=== PATIENT | female | born 1950 | race Caucasian/White ===

== ENCOUNTER → 2017-06-22 | Outpatient (CLI) | payer OTHER ==
[~2017-06-22] MED LIST: ACCL20 PO; ALBUAER19 INH; CALCTAB7 PO; IBAN150T PO; NAPR1TAB9 PO; OXGN; PANT40TA PO; PRDUNK PO; QVRINH80 INH; SERT100T PO; SULF800T23 PO; SYMIN160 INH; TIOTCAP INH; TRAM-10 PO; TRAZ50TA35 PO
--- NOTE | 2017-06-22 10:04 | DIAGNOSTIC IMAGING REPORT ---
(CHEST) THORAX WITHOUT CLINICAL HISTORY: 66 years-old Female presenting with THORACIC AORTIC ANEURYSM. TECHNIQUE: Multidetector CT imaging of the chest was performed without the use of intravenous contrast. IV contrast: None. A dose lowering technique was used consistent with the principles of ALARA (as low as reasonably achievable). COMPARISON: 06/18/2015. CT DOSE (mGy.cm): The estimated cumulative dose is 305.93 mGycm. FINDINGS: Digital [employer] topogram: Unremarkable. On soft tissue windows, normal thyroid and thoracic inlet. No axillary, supraclavicular, or mediastinal lymphadenopathy. Evaluation of the lali limited without intravenous contrast. Atherosclerosis of the aorta. The ascending aorta measures up to 4 cm in transverse dimension, previously 3.9 cm. No evidence of an intramural hematoma or significant irregularity of the external contour. The descending thoracic aorta is normal in caliber. Normal heart size. Coronary artery calcification. No pericardial or pleural effusion. Upper abdomen normal. On lung windows, Mosaic attenuation could suggest small airways disease. Biapical scarring greater on the right. Peripheral reticulonodular opacities greater in the right lung, slightly increased from prior exam. Mild bronchiectasis diffusely. No significant bronchial wall thickening. Subcentimeter cystic nodule at the right upper lobe (series 4 image 66), unchanged. On bone windows, degenerative changes of the spine. IMPRESSION: 1. No significant change in severity of the ascending aortic ectasia, which measures 4 cm in transverse dimension. 2. Mosaic attenuation with slightly increased peripheral reticulonodular opacities and subtle evidence of bronchiectasis. These findings are nonspecific and could be seen in the setting of smoking related lung injury, postinfectious/postinflammatory change, chronic aspiration, or less likely diffuse idiopathic pulmonary neuroendocrine cell hyperplasia. Electronically signed by: Pradeep Alvarez M.D. 06/22/2017 10:02 AM Dictated Date/Time: 06/22/2017 9:52 AM
== END | disposition home or self-care (01) ==
LOC: C.CTS 09:30
PROVIDERS: ATTEND Surgery Vascular Surgery
DX: I71.2 Thoracic aortic aneurysm, without rupture (principal)

== ENCOUNTER → 2017-09-15 | Outpatient (CLI) | payer OTHER ==
--- NOTE | 2017-09-15 11:54 | DIAGNOSTIC IMAGING REPORT ---
CHEST 2 VIEWS ROUTINE CLINICAL HISTORY: Shortness of breath. COMPARISON STUDY: Chest CT June 22, 2017. FINDINGS: There is no pneumothorax or pleural effusion. Reticulonodular interstitial thickening is likely chronic. There is right apical scarring. No pneumothorax or pleural effusion is noted. Cardiomediastinal silhouette is stable. There is no evidence for pulmonary edema. Exaggerated arthrosis of the upper thoracic spine as shown on lateral projection. The appearance of the chest is unchanged since exam of June 22, 2017. IMPRESSION: No acute cardiopulmonary findings. No significant change in appearance of the chest. Electronically signed by: Bridger Farfan M.D. 09/15/2017 11:53 AM Dictated Date/Time: 09/15/2017 11:43 AM
== END | disposition home or self-care (01) ==
LOC: C.RAD1850 11:20
PROVIDERS: ATTEND Physician Assistant Medical
DX: R06.02 Shortness of breath (principal)

== ENCOUNTER → 2017-11-19 | Outpatient (CLI) | payer OTHER ==
[2017-11-19 18:01] LABS: ALBUMIN 3.3 gm/dl (3.4-5.0); ALT/SGPT 20 U/L (12-78); BLOOD UREA NITROGEN 9 mg/dl (7-18); CALCIUM 8.9 mg/dl (8.5-10.1); CREATININE 0.61 mg/dl (0.60-1.20); GLUCOSE 176 mg/dl (70-99); POTASSIUM 3.9 mmol/L (3.5-5.1); SODIUM 134 mmol/L (136-145)
[2017-11-19 18:07] LABS: HEMATOCRIT 32.6 % (37-47); HEMOGLOBIN 8.6 g/dL (12.0-16.0); MEAN CELL VOLUME 89.8 fL (80-100); MEAN CORPUSCULAR HEMOGLOBIN 23.7 pg (25-34); MEAN CORPUSCULAR HGB CONC 26.4 g/dl (32-36); MEAN PLATELET VOLUME 10.8 fL (7.4-10.4); PLATELET COUNT 325 K/uL (130-400); RED CELL DISTRIBUTION WIDTH CV 18.9 % (11.5-14.5); RED CELL DISTRIBUTION WIDTH SD 62.7 fL (36.4-46.3); WHITE BLOOD COUNT 10.85 K/uL (4.8-10.8)
[2017-11-19 18:27] LABS: BASO % 0.1 %; BASO ABS # 0.01 K/uL (0-0.2); IG# 0.06 K/uL (0.00-0.02); LYMPH ABS # 0.33 K/uL (1.2-3.4); MONO % 2.8 %; NEUT % 93.5 %; NEUT ABS # 10.15 K/uL (1.4-6.5)
[2017-11-19 20:11] LABS: CARBON DIOXIDE 40 mmol/L (21-32)
[2017-11-19 20:12] LABS: ALKALINE PHOSPHATASE 98 U/L (45-117); AST/SGOT 20 U/L (15-37); TOTAL PROTEIN 6.8 gm/dl (6.4-8.2)
== END | disposition home or self-care (01) ==
LOC: C.LAB1850 15:44
PROVIDERS: ATTEND Internal Medicine Pulmonary Disease
DX: J44.9 Chronic obstructive pulmonary disease, unspecified (principal); R63.4 Abnormal weight loss

== ENCOUNTER → 2017-11-24 | Outpatient (CLI) | payer OTHER ==
[~2017-11-24] MED LIST changes: +BECL80AE7 INH; +FRRS300 PO; +LEVO-366 PO; +PRED10TA PO; +PRED20TA PO; +SERT-234 PO; +SPRIN/30 INH; +VNTHFA/IN INH; +ZAFI1TAB10 PO
[2017-11-25 07:17] LABS: HEMOGLOBIN A1C 5.7 % (4.5-5.6)
== END | disposition home or self-care (01) ==
LOC: C.LAB1850 15:15
PROVIDERS: ATTEND Physician Assistant Medical
DX: R79.9 Abnormal finding of blood chemistry, unspecified (principal)

== ENCOUNTER → 2017-11-26 | Outpatient (CLI) | payer OTHER ==
[2017-12-03 14:21] LABS: FECAL OCCULT BLOOD #1 NEGATIVE (NEGATIVE); FECAL OCCULT BLOOD #2 NEGATIVE (NEGATIVE); FECAL OCCULT BLOOD #3 NEGATIVE (NEGATIVE)
== END | disposition home or self-care (01) ==
LOC: C.LABSPEC 13:40
PROVIDERS: ATTEND Nurse Practitioner
DX: R79.89 Other specified abnormal findings of blood chemistry (principal)

== ENCOUNTER → 2017-11-27 | Outpatient (CLI) | payer OTHER ==
[2017-11-27 18:21] LABS: HEMATOCRIT 32.6 % (37-47); HEMOGLOBIN 8.7 g/dL (12.0-16.0); MEAN CELL VOLUME 90.3 fL (80-100); MEAN CORPUSCULAR HEMOGLOBIN 24.1 pg (25-34); MEAN CORPUSCULAR HGB CONC 26.7 g/dl (32-36); MEAN PLATELET VOLUME 10.9 fL (7.4-10.4); NUCLEATED RED BLOOD CELL ABS 0.03 K/uL (0-0); PLATELET COUNT 314 K/uL (130-400); RED CELL DISTRIBUTION WIDTH CV 18.6 % (11.5-14.5); RED CELL DISTRIBUTION WIDTH SD 61.4 fL (36.4-46.3); WHITE BLOOD COUNT 11.28 K/uL (4.8-10.8)
== END | disposition home or self-care (01) ==
LOC: C.LABMFLN 15:47
PROVIDERS: ATTEND Physician Assistant Medical
DX: D64.9 Anemia, unspecified (principal)

== ENCOUNTER 2017-12-03 14:03 | Inpatient (IN) | payer OTHER ==
[~2017-12-03] VITALS: Ht 152.4 cm; Wt 54.8 kg
[~2017-12-03 14:03] MED LIST changes: -BECL80AE7 INH; -FRRS300 PO; -LEVO-366 PO; -PRED10TA PO; -PRED20TA PO; -SERT-234 PO; -SPRIN/30 INH; -VNTHFA/IN INH; -ZAFI1TAB10 PO
--- NOTE | 2017-12-03 14:15 | EMERGENCY ROOM VISIT NOTE ---
History Report prepared by May: Rose Roldan Under the Supervision of: Dr. Naveed Ruby M.D. First contact with patient: 14:11 Chief Complaint: WEAKNESS Stated Complaint: FATIGUE, LOW HEMOGLOBIN History of Present Illness The patient is a 67 year old female who presents to the Emergency Room with complaints of persistent weakness beginning a couple months ago. Her notes the patient is so weak she has trouble walking, and they saw her lab rep, Dr. Sarkar, who increased her chronic Prednisone dose (due to chronic pulmonary conditions). He reports her pulse ox drops precipitously with movement. The patient denies CP, coughing, pain with urination, or blood in urine or stools. She denies any recent travel, blood thinner use, or history of blood clots. Her notes the patient wears oxygen at all times. Source of History: patient Onset: a couple months ago Position: other (global) Quality: other (weakness) Timing: other (persistent) Associated Symptoms: No cough, No chest pain, No melena, No urinary symptoms Review of Systems See HPI for pertinent positives and negatives. A total of ten systems were reviewed and were otherwise negative. Past Medical & Surgical Medical Problems: (1) Chronic lung disease Chronic lung disease Family History No pertinent family history stated. Social History Smoking Status: Never Smoker Alcohol Use: none Drug Use: none Marital Status: Housing Status: lives with family Occupation Status: employed Current/Historical Medications Scheduled Beclomethasone Dip (Qvar), 2 PUFFS INH BID Budesonide/Formoterol Fumarate (Symbicort 160/4.5 Inhaler ), 2 PUFFS INH BID Home O2 Therapy (Oxygen), 3-4 LITERS NA CONTINOUS Ibandronate Sodium (Boniva), 150 MG PO MONTHLY Pantoprazole (Protonix), 40 MG PO DAILY Prednisone (Prednisone), 30 MG PO DAILY Sertraline (Zoloft), 100 MG PO DAILY Sulfa/Trimethoprim (Bactrim Ds 800MG/160MG), 1 TAB PO BID Tiotropium Tynan (Spiriva Handihaler), 1 CAP INH DAILY Trazodone Hcl (Trazodone), 75 MG PO DAILY Zafirlukast (Accolate), 20 MG PO BID Scheduled PRN Albuterol Hfa (Ventolin Hfa), 2 PUFFS INH QID PRN for SOB/Wheezing Tramadol (Ultram), 50 MG PO Q4H PRN for Pain Allergies Coded Allergies: No Known Allergies (Verified , 12/03/17) Physical Exam Vital Signs Date Time Temp Pulse Resp B/P (MAP) Pulse Ox O2 Delivery O2 Flow Rate FiO2 12/03/17 16:00 162/97 12/03/17 15:38 107 29 96 12/03/17 15:33 106 26 95 12/03/17 15:31 145/91 12/03/17 15:03 107 24 160/93 96 Nasal Cannula 4.0 12/03/17 15:03 102 30 96 12/03/17 14:58 100 25 95 12/03/17 14:53 110 96 12/03/17 14:48 108 25 12/03/17 14:43 108 25 96 12/03/17 14:39 108 12/03/17 14:36 138/95 12/03/17 14:26 97 Room Air 4.0 Nasal Cannula 12/03/17 14:26 97 Nasal Cannula 4.0 12/03/17 14:06 37.1 81 20 146/76 97 Nasal Cannula 4.0 Physical Exam Physical Exam GENERAL: She is oriented to person, place, and time. She appears well- developed and well-nourished. She does not appear distressed. HENT: Exam performed. Head: Normocephalic and atraumatic. Right Ear: External ear normal. No mastoid tenderness. Left Ear: External ear normal. No mastoid tenderness. Mouth/Throat: The oropharynx is clear and moist. No trismus in the jaw. No dental abscesses or uvula swelling. No oropharyngeal exudate or tonsillar abscesses. EYES: Conjunctivae and EOM are normal. Pupils are equal, round, and reactive to light. Right eye exhibits no discharge. Left eye exhibits no discharge. No scleral icterus. NECK: Normal range of motion. Neck supple. No JVD present. No spinous process tenderness present. No carotid bruit present. No rigidity. No tracheal deviation and normal range of motion present. No Brudzinski's sign and no Kernig 's sign noted. CV: Tachycardic rate, regular rhythm, normal heart sounds and intact distal pulses. There is no peripheral edema. Palpable radial pulses bue. PULM/CHEST: Diminished breath sounds bilaterally. No respiratory distress. No stridor. Expiratory wheezes bilaterally. She has no rales. Chest Wall: She exhibits no tenderness. ABD: The abdomen is soft. Bowel sounds are normal. She has no distension. No mass is present. There is no tenderness. There is no rebound, no guarding, no Turcios's sign and no tenderness at McBurney's point. Rovsig negative MUSC/SKEL: Normal range of motion. There is no peripheral edema, tenderness or deformity. LYMPH: No cervical adenopathy. NEURO: She is alert and oriented to person, place, and time. She has normal strength. No cranial nerve deficit or sensory deficit. Coordination and gait normal. GCS eye subscore is 4. GCS verbal subscore is 5. GCS motor subscore is 6. Cerebellar tests wnl. SKIN: Skin is warm and dry. She is not diaphoretic. PSYCH: She has a normal mood and affect. Behavior is normal. Judgment and thought content normal. Medical Decision & Procedures ER Provider Diagnostic Interpretation: Radiology results as stated below per my review and radiologist interpretation: (CHEST FOR PE) ANGIO WITH CT DOSE: 191.83 mGy.cm HISTORY: Chest pain dyspnea. Fatigue. TECHNIQUE: Multiaxial CT images of the chest were performed following the intravenous administration of contrast to evaluate the pulmonary arteries. Maximal intensity projection images were also obtained. A dose lowering technique was utilized adhering to the principles of ALARA. COMPARISON STUDY: None. FINDINGS: There is a normal caliber thoracic aorta with no evidence for dissection. There is no evidence for pulmonary embolus. No pleural effusions. No pneumothorax. The liver and spleen are unremarkable. No mediastinal or hilar lymphadenopathy. The central airways are patent. The lungs demonstrate a right middle lobe infiltrate with moderate generalized emphysematous and basilar interstitial change. IMPRESSION: No evidence for pulmonary embolus. Emphysematous change. Right lower middle lobe infiltrate. The above report was generated using voice recognition software. It may contain grammatical, syntax or spelling errors. Electronically signed by: Demar Bingham M.D. 12/03/2017 4:24 PM Dictated Date/Time: 12/03/2017 4:16 PM CHEST ONE VIEW PORTABLE CLINICAL HISTORY: 67 years-old Female presenting with CHEST PAIN. TECHNIQUE: Portable upright AP view of the chest was obtained. COMPARISON: 09/15/2017. FINDINGS: Atherosclerosis of the aortic arch. Cardiac silhouette enlarged. Lungs hyperinflated. Heterogeneous lung parenchyma. No new focal opacity. No large effusion or pneumothorax. Multiple left-sided rib fractures not all of which were present on the prior exam. Osteopenia. Degenerative changes of the spine. Upper abdomen normal. IMPRESSION: 1. Heterogeneity of lung parenchyma may reflect underlying chronic reticulonodular opacities. Consider CT chest for further evaluation. 2. Multiple left-sided rib fractures, not all of which were visible on the prior exam. Correlate with point tenderness to assess for acuity. Electronically signed by: Pradeep Alvarez M.D. 12/03/2017 2:29 PM Dictated Date/Time: 12/03/2017 2:26 PM Laboratory Results 12/03/17 14:37 Red Blood Count 3.71, Mean Corpuscular Volume 91.6, Mean Corpuscular Hemoglobin 24.3, Mean Corpuscular Hemoglobin Concent 26.5, Mean Platelet Volume 10.2, Neutrophils (%) (Auto) 95.5, Lymphocytes (%) (Auto) 1.4, Monocytes (%) (Auto) 2.5, Eosinophils (%) (Auto) 0.0, Basophils (%) (Auto) 0.1, Neutrophils # (Auto) 12.65, Lymphocytes # (Auto) 0.18, Monocytes # (Auto) 0.33, Eosinophils # (Auto) 0.00, Basophils # (Auto) 0.01 12/03/17 14:37 Test 12/03/17 14:37 12/03/17 15:28 White Blood Count 13.24 K/uL (4.8-10.8) Red Blood Count 3.71 M/uL (4.2-5.4) Hemoglobin 9.0 g/dL (12.0-16.0) Hematocrit 34.0 % (37-47) Mean Corpuscular Volume 91.6 fL (80-100) Mean Corpuscular Hemoglobin 24.3 pg (25-34) Mean Corpuscular Hemoglobin Concent 26.5 g/dl (32-36) Platelet Count 299 K/uL (130-400) Mean Platelet Volume 10.2 fL (7.4-10.4) Neutrophils (%) (Auto) 95.5 % Lymphocytes (%) (Auto) 1.4 % Monocytes (%) (Auto) 2.5 % Eosinophils (%) (Auto) 0.0 % Basophils (%) (Auto) 0.1 % Neutrophils # (Auto) 12.65 K/uL (1.4-6.5) Lymphocytes # (Auto) 0.18 K/uL (1.2-3.4) Monocytes # (Auto) 0.33 K/uL (0.11-0.59) Eosinophils # (Auto) 0.00 K/uL (0-0.5) Basophils # (Auto) 0.01 K/uL (0-0.2) RDW Standard Deviation 63.0 fL (36.4-46.3) RDW Coefficient of Variation 19.0 % (11.5-14.5) Immature Granulocyte % (Auto) 0.5 % Immature Granulocyte # (Auto) 0.07 K/uL (0.00-0.02) Anion Gap 3.0 mmol/L (3-11) Estimated GFR () 112.0 Estimated GFR (Non- 96.6 BUN/Creatinine Ratio 14.0 (10-20) Calcium Level 8.7 mg/dl (8.5-10.1) Troponin I < 0.015 ng/ml (0-0.045) Pro-B-Type Natriuretic Peptide 100 pg/ml (0-900) Venous Blood pH 7.36 (7.36-7.41) Venous Blood Partial Pressure CO2 87 mmHg (38.0-50.0) Venous Blood Partial Pressure O2 31 mmHg Venous Blood HCO3 47 mmol/L Venous Blood Oxygen Saturation < 60.0 % Venous Blood Base Excess 18.9 mEq/L Laboratory results reviewed by me ECG Per My Interpretation Indication: weakness Rate (beats per minute): 108 Rhythm: sinus tachycardia Findings: peaked T-waves, other (DE, QRS, QTC intervals within normal limits. ) ED Course 141: The patient was evaluated in room A2. A complete history and physical exam was performed. EMR reviewed. Patient had a hemoglobin conducted on November which was 8.7. This is relatively stable from the hemoglobin done on November 19 which was 8.6. 1430: Ordered Ioversol 111 ml IV 1445: Venous blood gas showed pH 7.34, PCO2 of 90, bicarb 47, will repeat VBG to make sure patient is not having worsening hypercapnia/respiratory acidosis. 1627: Repeat VBG shows pH of 7.36, PCO2 of 87, bicarb 47. Blood gas is stable and shows no worsening respiratory acidosis or hypercapnia. Labs also show mild leukocytosis of 13.24. Hemoglobin stable. CTA of chest shows no PE, but does show emphysema and R middle lob infiltrate. Given patient's chronic steroid usage, continuos oxygen usage, and history of pulmonary problems, will plan on admission to hospital for pneumonia. Will treat with broad-spectrum antibiotics , given the patient's chronic lob problems and steroid usage.Ordered Zosyn IV 4.5 gm IV, Vancomycin HCl/Sodium Chloride 500 ml @ 200mls/hrI updated the patient. She is agreeable with the treatment plan. 1642: Discussed the patient's case with Dr. Norton, [facility] hospitalist. The patient will be evaluated for further treatment and disposition. Medical Decision 1412: The patient was evaluated in room A2. A complete history and physical exam was performed. EMR reviewed. Patient had a hemoglobin conducted on November which was 8.7. This is relatively stable from the hemoglobin done on November 19 which was 8.6. 1430: Ordered Ioversol 111 ml IV 1445: Venous blood gas showed pH 7.34, PCO2 of 90, bicarb 47, will repeat VBG to make sure patient is not having worsening hypercapnia/respiratory acidosis. 1627: Repeat VBG shows pH of 7.36, PCO2 of 87, bicarb 47. Blood gas is stable and shows no worsening respiratory acidosis or hypercapnia. Labs also show mild leukocytosis of 13.24. Hemoglobin stable. CTA of chest shows no PE, but does show emphysema and R middle lob infiltrate. Given patient's chronic steroid usage, continuos oxygen usage, and history of pulmonary problems, will plan on admission to hospital for pneumonia. Will treat with broad-spectrum antibiotics , given the patient's chronic lob problems and steroid usage.Ordered Zosyn IV 4.5 gm IV, Vancomycin HCl/Sodium Chloride 500 ml @ 200mls/hrI updated the patient. She is agreeable with the treatment plan. 1642: Discussed the patient's case with Dr. Norton, [facility] hospitalist. The patient will be evaluated for further treatment and disposition. Medication Reconcilliation Current Medication List: was personally reviewed by mn Blood Pressure Screening Patient's blood pressure: Elevated blood pressure Blood pressure disposition: Did not require urgent referral (referred to hospitalist) Consults Time Called: 1631 Consulting Physician: Dr. Norton [facility] hospitalist Returned Call: 1642 Discussed the patient's case with Dr. Norton [facility] hospitalist. The patient will be evaluated for further treatment and disposition. Impression Primary Impression: HCAP (healthcare-associated pneumonia) Additional Impression: Dyspnea on exertion Scribe Attestation The scribe's documentation has been prepared under my direction and personally reviewed by me in its entirety. I confirm that the note above accurately reflects all work, treatment, procedures, and medical decision making performed by me. The chart was completed utilizing [employer] voice recognition software. Grammatical errors, random word insertions, pronoun errors, and incomplete sentences are an occasional consequence of this system due to software limitations, ambient noise, and hardware issues. Any formal questions or concerns about the content, text, or information contained within the body of this dictation should be directly addressed to the physician for clarification. Departure Information Dispostion Being Evaluated By Hospitalist Patient Instructions My [facility] Health Problem Qualifiers
[2017-12-03] MEDS ORDERED: OPTIRAY 320 IV PRN (14:30)
--- NOTE | 2017-12-03 14:30 | DIAGNOSTIC IMAGING REPORT ---
CHEST ONE VIEW PORTABLE CLINICAL HISTORY: 67 years-old Female presenting with CHEST PAIN. TECHNIQUE: Portable upright AP view of the chest was obtained. COMPARISON: 09/15/2017. FINDINGS: Atherosclerosis of the aortic arch. Cardiac silhouette enlarged. Lungs hyperinflated. Heterogeneous lung parenchyma. No new focal opacity. No large effusion or pneumothorax. Multiple left-sided rib fractures not all of which were present on the prior exam. Osteopenia. Degenerative changes of the spine. Upper abdomen normal. IMPRESSION: 1. Heterogeneity of lung parenchyma may reflect underlying chronic reticulonodular opacities. Consider CT chest for further evaluation. 2. Multiple left-sided rib fractures, not all of which were visible on the prior exam. Correlate with point tenderness to assess for acuity. Electronically signed by: Pradeep Alvarez M.D. 12/03/2017 2:29 PM Dictated Date/Time: 12/03/2017 2:26 PM
[2017-12-03] MEDS ORDERED: TRAZ50TA35 PO (14:42)
[2017-12-03] MEDS ORDERED: VNTHFA/IN INH (14:42)
[2017-12-03] MEDS ORDERED: PANT40TA PO (14:42)
[2017-12-03] MEDS ORDERED: ZAFI1TAB10 PO (14:42)
[2017-12-03] MEDS ORDERED: PRED10TA PO (14:42)
[2017-12-03] MEDS ORDERED: SULF800T23 PO (14:42)
[2017-12-03] MEDS ORDERED: SERT-234 PO (14:42)
[2017-12-03] MEDS ORDERED: BECL80AE7 INH (14:42)
[2017-12-03] MEDS ORDERED: OXGN (14:42)
[2017-12-03] MEDS ORDERED: SPRIN/30 INH (14:42)
[2017-12-03] MEDS ORDERED: TRAM-10 PO (14:42)
[2017-12-03] MEDS ORDERED: SYMIN160 INH (14:42)
[2017-12-03] MEDS ORDERED: IBAN150T PO (14:42)
[2017-12-03 14:52] LABS: BASO % 0.1 %; BASO ABS # 0.01 K/uL (0-0.2); IG# 0.07 K/uL (0.00-0.02); LYMPH % 1.4 %; LYMPH ABS # 0.18 K/uL (1.2-3.4); MEAN CELL VOLUME 91.6 fL (80-100); MEAN CORPUSCULAR HEMOGLOBIN 24.3 pg (25-34); MEAN CORPUSCULAR HGB CONC 26.5 g/dl (32-36); MEAN PLATELET VOLUME 10.2 fL (7.4-10.4); MONO % 2.5 %; MONO ABS # 0.33 K/uL (0.11-0.59); NEUT % 95.5 %; NEUT ABS # 12.65 K/uL (1.4-6.5); PLATELET COUNT 299 K/uL (130-400); WHITE BLOOD COUNT 13.24 K/uL (4.8-10.8)
[2017-12-03 15:47] LABS: BLOOD UREA NITROGEN 8 mg/dl (7-18); CALCIUM 8.7 mg/dl (8.5-10.1); CARBON DIOXIDE 45 mmol/L (21-32); CREATININE 0.57 mg/dl (0.60-1.20); GLUCOSE 129 mg/dl (70-99); POTASSIUM 4.1 mmol/L (3.5-5.1); SODIUM 135 mmol/L (136-145)
--- NOTE | 2017-12-03 16:25 | DIAGNOSTIC IMAGING REPORT ---
(CHEST FOR PE) ANGIO WITH CT DOSE: 191.83 mGy.cm HISTORY: Chest pain dyspnea. Fatigue. TECHNIQUE: Multiaxial CT images of the chest were performed following the intravenous administration of contrast to evaluate the pulmonary arteries. Maximal intensity projection images were also obtained. A dose lowering technique was utilized adhering to the principles of ALARA. COMPARISON STUDY: None. FINDINGS: There is a normal caliber thoracic aorta with no evidence for dissection. There is no evidence for pulmonary embolus. No pleural effusions. No pneumothorax. The liver and spleen are unremarkable. No mediastinal or hilar lymphadenopathy. The central airways are patent. The lungs demonstrate a right middle lobe infiltrate with moderate generalized emphysematous and basilar interstitial change. IMPRESSION: No evidence for pulmonary embolus. Emphysematous change. Right lower middle lobe infiltrate. The above report was generated using voice recognition software. It may contain grammatical, syntax or spelling errors. Electronically signed by: Demar Bingham M.D. 12/03/2017 4:24 PM Dictated Date/Time: 12/03/2017 4:16 PM
[2017-12-03] MEDS ORDERED: VANCOMYCIN IV 0 MG in SODIUM CHLORIDE 0.9% 500ML 500 ML IV STA (16:27)
[2017-12-03] MEDS ORDERED: PIPERACILLIN/TAZOBACTAM 4.5 GM/100ML D5W IV STA (16:27)
[2017-12-03] MEDS ORDERED: VANCOMYCIN CONSULT ACTIVE PRN ×2 (16:30→18:45)
[2017-12-03] MEDS ORDERED: VANCOMYCIN IV 1,250 MG in SODIUM CHLORIDE 0.9% 250ML 250 ML IV STA (16:44)
[2017-12-03] MEDS ORDERED: TRAMADOL HCL 50 MG TAB PO PRN (18:30)
[2017-12-03] MEDS ORDERED: ACETAMINOPHEN 325 MG TAB PO PRN (18:30)
--- NOTE | 2017-12-03 18:41 | History and Physical ---
History & Physical Date & Time of Service: Dec 03, 2017 at 18:41 Chief Complaint: Fatigue, Low Hemoglobin Primary Care Physician: RV. Hein MD History of Present Illness Source: patient, spouse, hospital records The patient is a 67-year-old female with severe COPD, who presents to the emergency department with worsening generalized weakness, decreased ability to ambulate, and worsening shortness of breath. She follows with mail clerks supervisor Dr. Sellers, who increased her chronic prednisone dose to 30 mg daily. She follows her pulse ox at home, and reports that it drops significantly with any form of movement. She has noticed her cough to be more productive recently. She denies any sick exposures or recent travels. She wears 4 L of oxygen continuously at home. Her is in the room with her in the ED, and corroborates her story. He reports, and she confirms that she had fallen several weeks ago, and then again last week on her left side when she was reaching for something up high. Past Medical/Surgical History Medical Problems: (1) Anemia (2) Pneumonia of right middle lobe due to infectious organism Family History noncontributory Social History Smoking Status: Never Smoker Smokeless Tobacco Use: No Alcohol Use: none Drug Use: none Marital Status: Housing status: lives with family Occupational Status: employed Immunizations History of Influenza Vaccine: Yes Influenza Vaccine Date: Jan 25, 2011 History of Tetanus Vaccine?: 2009 Tetanus Immunization Date: Jan 28, 2009 History of Pneumococcal: UNSURE OF DATE Pneumococcal Date: Feb 04, 2010 History of Hepatitis B Vaccine: No Allergies Coded Allergies: No Known Allergies (Verified , 12/03/17) Home Medications Scheduled Beclomethasone Dip (Qvar), 2 PUFFS INH BID Budesonide/Formoterol Fumarate (Symbicort 160/4.5 Inhaler ), 2 PUFFS INH BID Home O2 Therapy (Oxygen), 3-4 LITERS NA CONTINOUS Ibandronate Sodium (Boniva), 150 MG PO MONTHLY Pantoprazole (Protonix), 40 MG PO DAILY Prednisone (Prednisone), 30 MG PO DAILY Sertraline (Zoloft), 100 MG PO DAILY Sulfa/Trimethoprim (Bactrim Ds 800MG/160MG), 1 TAB PO BID Tiotropium [place] (Spiriva Handihaler), 1 CAP INH DAILY Trazodone Hcl (Trazodone), 75 MG PO DAILY Zafirlukast (Accolate), 20 MG PO BID Scheduled PRN Albuterol Hfa (Ventolin Hfa), 2 PUFFS INH QID PRN for SOB/Wheezing Tramadol (Ultram), 50 MG PO Q4H PRN for Pain Review of Systems The patient denies chest pain, palpitations, lower extremity swelling, sore throat, fevers, chills, sweats, nausea, vomiting, diarrhea, constipation, abdominal pain, pelvic pain, blood in urine or stool, dysuria, urinary frequency or urgency, lightheadedness, dizziness, headache, memory loss, loss of consciousness, focal weakness, numbness or tingling in arms or legs, back or neck pain, or night sweats. She does confirm a left sided rib cage pain, which has been improving after her falls. The review of systems is otherwise negative other than for that already noted above, and at least 10 systems have been reviewed. Physical Exam Vital Signs Date Time Temp Pulse Resp B/P (MAP) Pulse Ox O2 Delivery O2 Flow Rate FiO2 12/03/17 17:49 102 20 165/93 95 Nasal Cannula 4.0 12/03/17 16:00 162/97 12/03/17 15:38 107 29 96 12/03/17 15:33 106 26 95 12/03/17 15:31 145/91 12/03/17 15:03 107 24 160/93 96 Nasal Cannula 4.0 12/03/17 15:03 102 30 96 12/03/17 14:58 100 25 95 12/03/17 14:53 110 96 12/03/17 14:48 108 25 12/03/17 14:43 108 25 96 12/03/17 14:39 108 12/03/17 14:36 138/95 12/03/17 14:26 97 Room Air 4.0 Nasal Cannula 12/03/17 14:26 97 Nasal Cannula 4.0 12/03/17 14:06 37.1 81 20 146/76 97 Nasal Cannula 4.0 The patient is awake, alert and oriented 3, looks chronically ill, normocephalic and atraumatic, lying in bed and in no acute distress. HEENT--PERRL, EOMI, mucous membranes and oropharynx dry. Neck--supple. No JVD. No bruits. Thyroid normal, trachea midline, no adenopathy. Heart--normal S1 and S2. No murmurs, rubs or gallops. Lungs--decreased breath sounds throughout, with few coarse breath sounds right side, no respiratory distress, no accessory muscle use. Abdomen--normal bowel sounds and soft. Nontender. Nondistended, no hernias or masses, no organomegaly. Extremities--no cyanosis or clubbing. No edema. There are good distal pulses b/ l. Dermatologic--normal skin turgor, normal color, no abnormal lymph nodes, no rash. Neurologic--cranial nerves II through XII grossly intact. Rheumatologic--normal range of motion. Psychiatric--normal affect. Diagnostics Laboratory Results Results Past 24 Hours Test 12/03/17 14:37 12/03/17 15:28 12/03/17 18:36 Range/Units White Blood Count 13.24 4.8-10.8 K/uL Red Blood Count 3.71 4.2-5.4 M/uL Hemoglobin 9.0 12.0-16.0 g/dL Hematocrit 34.0 37-47 % Mean Corpuscular Volume 91.6 80-100 fL Mean Corpuscular Hemoglobin 24.3 25-34 pg Mean Corpuscular Hemoglobin Concent 26.5 32-36 g/dl Platelet Count 299 130-400 K/uL Mean Platelet Volume 10.2 7.4-10.4 fL Neutrophils (%) (Auto) 95.5 % Lymphocytes (%) (Auto) 1.4 % Monocytes (%) (Auto) 2.5 % Eosinophils (%) (Auto) 0.0 % Basophils (%) (Auto) 0.1 % Neutrophils # (Auto) 12.65 1.4-6.5 K/uL Lymphocytes # (Auto) 0.18 1.2-3.4 K/uL Monocytes # (Auto) 0.33 0.11-0.59 K/uL Eosinophils # (Auto) 0.00 0-0.5 K/uL Basophils # (Auto) 0.01 0-0.2 K/uL RDW Standard Deviation 63.0 36.4-46.3 fL RDW Coefficient of Variation 19.0 11.5-14.5 % Immature Granulocyte % (Auto) 0.5 % Immature Granulocyte # (Auto) 0.07 0.00-0.02 K/uL Venous Blood pH 7.34 7.36 7.36-7.41 Venous Blood Partial Pressure CO2 90 87 38.0-50.0 mmHg Venous Blood Partial Pressure O2 35 31 mmHg Venous Blood HCO3 47 47 mmol/L Venous Blood Oxygen Saturation < 60.0 < 60.0 % Venous Blood Base Excess 18.2 18.9 mEq/L Sodium Level 135 136-145 mmol/L Potassium Level 4.1 3.5-5.1 mmol/L Chloride Level 87 98-107 mmol/L Carbon Dioxide Level 45 21-32 mmol/L Anion Gap 3.0 3-11 mmol/L Blood Urea Nitrogen 8 7-18 mg/dl Creatinine 0.57 0.60-1.20 mg/dl Estimated GFR () 112.0 Estimated GFR (Non- 96.6 BUN/Creatinine Ratio 14.0 10-20 Random Glucose 129 70-99 mg/dl Calcium Level 8.7 8.5-10.1 mg/dl Troponin I < 0.015 0-0.045 ng/ml Pro-B-Type Natriuretic Peptide 100 0-900 pg/ml Microbiology Results 12/03/17 Blood Culture, Received Pending 12/03/17 Blood Culture, Ordered Pending Diagnostic Radiology Patient Name: VELIA DEL VALLE Unit Number: [id number] Dictated: 12/03/171425 Transcribed: 12/03/171425 PBS Printed Date/Time: [~ rep prt dt]/[~ rep prt tm] [~ rep ct labl] - [~ rep ct ivnm] [facility] Radiology Department [place] [id number] Dictated: 12/03/171425 Transcribed: 12/03/171425 PBS Printed Date/Time: [~ rep prt dt]/[~ rep prt tm] [~ rep ct labl] - [~ rep ct ivnm] CHEST ONE VIEW PORTABLE CLINICAL HISTORY: 67 years-old Female presenting with CHEST PAIN. TECHNIQUE: Portable upright AP view of the chest was obtained. COMPARISON: 09/15/2017. FINDINGS: Atherosclerosis of the aortic arch. Cardiac silhouette enlarged. Lungs hyperinflated. Heterogeneous lung parenchyma. No new focal opacity. No large effusion or pneumothorax. Multiple left-sided rib fractures not all of which were present on the prior exam. Osteopenia. Degenerative changes of the spine. Upper abdomen normal. IMPRESSION: 1. Heterogeneity of lung parenchyma may reflect underlying chronic reticulonodular opacities. Consider CT chest for further evaluation. 2. Multiple left-sided rib fractures, not all of which were visible on the prior exam. Correlate with point tenderness to assess for acuity. Electronically signed by: Pradeep Alvarez M.D. 12/03/2017 2:29 PM Dictated Date/Time: 12/03/2017 2:26 PM The status of this report is Signed. Draft = Not yet reviewed or approved by Radiologist. Signed = Reviewed and approved by Radiologist. <AttendingPhy></AttendingPhy> <FamilyPhy></FamilyPhy> <PrimaryPhy></PrimaryPhy> <UnitNumber>[id number]</UnitNumber> <VisitNumber>[id number]</VisitNumber> < PatientName>ELIGIOVELIA</PatientName> <DateOfBirth>1950</DateOfBirth> < Location>[facility]</Location> <ServiceDate>12/03/17</ServiceDate> <MNE>ESINDI</MNE> <OrderingPhy>Naveed Ruby M.D.</OrderingPhy> <OrderingPhyMNE>f rep ord dr hernández</ OrderingPhyMNE> <DictatingPhyMNE>f rep dict dr hernández</DictatingPhyMNE> <CCListMNE> f rep ct mne</CCListMNE> <AdmittingPhyMNE>f pt admit dr hernández</AdmittingPhyMNE> < AttendingPhyMNE>f pt attend dr hernández</AttendingPhyMNE> <ConsultingPhyMNE>f pt consult dr hernández</ConsultingPhyMNE> <FamilyPhyMNE>f pt fam dr hernández</FamilyPhyMNE> <OtherPhyMNE>f pt other dr hernández</OtherPhyMNE> < PrimaryPhyMNE>f pt prim care dr hernández</PrimaryPhyMNE> <ReferringPhyMNE>f pt referring dr hernández</ReferringPhyMNE> Patient Name: ELIGIOVELIA Unit Number: [id number] Dictated: 12/03/171615 Transcribed: 12/03/171615 MS Printed Date/Time: [~ rep prt dt]/[~ rep prt tm] [~ rep ct labl] - [~ rep ct ivnm] [facility] [place] [address] Dictated: 12/03/171615 Transcribed: 12/03/171615 MS Printed Date/Time: [~ rep prt dt]/[~ rep prt tm] [~ rep ct labl] - [~ rep ct ivnm] (CHEST FOR PE) ANGIO WITH CT DOSE: 191.83 mGy.cm HISTORY: Chest pain dyspnea. Fatigue. TECHNIQUE: Multiaxial CT images of the chest were performed following the intravenous administration of contrast to evaluate the pulmonary arteries. Maximal intensity projection images were also obtained. A dose lowering technique was utilized adhering to the principles of ALARA. COMPARISON STUDY: None. FINDINGS: There is a normal caliber thoracic aorta with no evidence for dissection. There is no evidence for pulmonary embolus. No pleural effusions. No pneumothorax. The liver and spleen are unremarkable. No mediastinal or hilar lymphadenopathy. The central airways are patent. The lungs demonstrate a right middle lobe infiltrate with moderate generalized emphysematous and basilar interstitial change. IMPRESSION: No evidence for pulmonary embolus. Emphysematous change. Right lower middle lobe infiltrate. The above report was generated using voice recognition software. It may contain grammatical, syntax or spelling errors. Electronically signed by: Demar Bingham M.D. 12/03/2017 4:24 PM Dictated Date/Time: 12/03/2017 4:16 PM The status of this report is Signed. Draft = Not yet reviewed or approved by Radiologist. Signed = Reviewed and approved by Radiologist. <AttendingPhy></AttendingPhy> <FamilyPhy>Alek Harris M.D.</FamilyPhy> < PrimaryPhy>RV. Hein MD</PrimaryPhy> <UnitNumber>[id number]</ UnitNumber> <VisitNumber>[id number]</VisitNumber> <PatientName>VELIA DEL VALLE< /PatientName> <DateOfBirth>1950</DateOfBirth> <Location>[facility]</Location> < ServiceDate>12/03/17</ServiceDate> <MNE>ESINDI</MNE> <OrderingPhy>Naveed Ruby M.D.</OrderingPhy> <OrderingPhyMNE>f rep ord dr hernández</OrderingPhyMNE> < DictatingPhyMNE>f rep dict dr hernández</DictatingPhyMNE> <CCListMNE>f rep ct mne</ CCListMNE> <AdmittingPhyMNE>f pt admit dr hernández</AdmittingPhyMNE> <AttendingPhyMNE >f pt attend dr hernández</AttendingPhyMNE> <ConsultingPhyMNE>f pt consult dr hernández</ConsultingPhyMNE> <FamilyPhyMNE>f pt fam dr hernández</FamilyPhyMNE> <OtherPhyMNE>f pt other dr hernández</OtherPhyMNE> < PrimaryPhyMNE>f pt prim care dr hernández</PrimaryPhyMNE> <ReferringPhyMNE>f pt referring dr hernández</ReferringPhyMNE> EKG VELIA DEL VALLE ID:[id number] 03-DEC-2017 14:40:07 [facility] Sinus tachycardia with Premature supraventricular complexes Left axis deviation Moderate voltage criteria for LVH, may be normal variant Cannot rule out Anteroseptal infarct , age undetermined Abnormal ECG When compared with ECG of 13-APR-2011 16:27, Premature supraventricular complexes are now Present Minimal criteria for Anteroseptal infarct are now Present Confirmed by ROEL TALAMANTES ([id number]) on 12/03/2017 9:14:09 PM 25mm/s 10mm/mV 150Hz 8.0 SP2 12SL 241 DEVEN: 13 Referred by: UNKNOWN Confirmed By: ROEL TALAMANTES Vent. rate 108 BPM MD interval 134 ms QRS duration 80 ms QT/QTc 324/434 ms P-R-T axes 32 -39 44 1950 (67 yr) Female Room: Loc:15 Mortgage Processor:ERROL HUDSON Impression Assessment and Plan Acute respiratory failure with hypoxia and hypercapnia/right middle lobe pneumonia/COPD exacerbation-- Admit to monitored bed. Vancomycin IV per pharmacokinetic monitoring Zosyn 3.375 mg IV every 8 hours Levofloxacin 500 mg IV every 24 hours Duonebs every 4 hours while awake and every 2 hours when necessary. Pulmicort Respules 0.5 mg inhaled twice daily Solu-Medrol 40 mg IV every 8 hours Guaifenesin extended release 600 mg by mouth twice a day Nasal cannula oxygen titrate to keep pulse ox greater than or equal to 92% Sputum Gram stain and culture. Continue Accolate 20 mg p.o. twice daily, however is nonformulary, and patient will need to bring in her own medication. Hold albuterol HFA, Qvar, Symbicort, prednisone, Spiriva and Bactrim DS. Anemia-- Hemoglobin 9.0. She would likely do best if hemoglobin were always kept above 10. Her anemia is undoubtedly affecting her ability to breathe and ambulate. Check a reticulocyte count, vitamin B12, folic acid, iron, TIBC, celiac disease panel. Recommended nutritional supplement specifically aimed at COPD patients. Heme test stools. May be an element of anemia of chronic disease. GERD-- Continue pantoprazole 40 mg p.o. daily. Anxiety with depression-- Continue sertraline 100 mg p.o. daily and trazodone 75 mg p.o. at bedtime. Left rib fractures/osteoarthritis-- Continue tramadol 50 mg p.o. every 4 hours as needed. Advanced Directives Existing Advance Directive: No Existing Living Will: No Existing Power of Green Meat Packer: No Resuscitation Status VTE Prophylaxis Will order VTE Prophylaxis: Yes Social Service Consult None Apply
[2017-12-03] MEDS ORDERED: PIPERACILL/TAZOBAC CONSULT ACTIVE PRN (18:45)
[2017-12-03] MEDS ORDERED: ONDANSETRON INJ 2 MG/ML 2 ML VIAL IV PRN ×2 (18:45)
[2017-12-03] MEDS ORDERED: ACETAMINOPHEN IV 100 ML IV PRN (18:45)
[2017-12-03 18:53] LABS: ALBUMIN 3.7 gm/dl (3.4-5.0); ALKALINE PHOSPHATASE 89 U/L (45-117); ALT/SGPT 28 U/L (12-78); AST/SGOT 31 U/L (15-37); TOTAL PROTEIN 6.5 gm/dl (6.4-8.2)
[2017-12-03 19:00] VITALS: O2SAT 95; Ht 152.4 cm; Wt 54.8 kg
--- NOTE | 2017-12-03 19:09 | Pharmacy Progress Note ---
Pharmacy Antibiotic Consult Date of Service: Dec 03, 2017. Pharmacy Dosing Scope Pharmacy is consulted to initiate VANCOMYCIN & ZOSYN IV dosing therapy, order appropriate labs and adjust drug dose/frequency. Subjective The patient is a 67 year old female admitted on 12/03/17. Objective Height (Feet): 5 Height (Inches): 0 Weight (Kilograms): 55.000 Lab Results (24hrs): Test 12/03/17 14:37 12/03/17 15:28 12/03/17 18:56 White Blood Count 13.24 K/uL (4.8-10.8) Red Blood Count 3.71 M/uL (4.2-5.4) Hemoglobin 9.0 g/dL (12.0-16.0) Hematocrit 34.0 % (37-47) Mean Corpuscular Volume 91.6 fL (80-100) Mean Corpuscular Hemoglobin 24.3 pg (25-34) Mean Corpuscular Hemoglobin Concent 26.5 g/dl (32-36) Platelet Count 299 K/uL (130-400) Mean Platelet Volume 10.2 fL (7.4-10.4) Neutrophils (%) (Auto) 95.5 % Lymphocytes (%) (Auto) 1.4 % Monocytes (%) (Auto) 2.5 % Eosinophils (%) (Auto) 0.0 % Basophils (%) (Auto) 0.1 % Neutrophils # (Auto) 12.65 K/uL (1.4-6.5) Lymphocytes # (Auto) 0.18 K/uL (1.2-3.4) Monocytes # (Auto) 0.33 K/uL (0.11-0.59) Eosinophils # (Auto) 0.00 K/uL (0-0.5) Basophils # (Auto) 0.01 K/uL (0-0.2) RDW Standard Deviation 63.0 fL (36.4-46.3) RDW Coefficient of Variation 19.0 % (11.5-14.5) Immature Granulocyte % (Auto) 0.5 % Immature Granulocyte # (Auto) 0.07 K/uL (0.00-0.02) Venous Blood pH 7.34 (7.36-7.41) 7.36 (7.36-7.41) Venous Blood Partial Pressure CO2 90 mmHg (38.0-50.0) 87 mmHg (38.0-50.0) Venous Blood Partial Pressure O2 35 mmHg 31 mmHg Venous Blood HCO3 47 mmol/L 47 mmol/L Venous Blood Oxygen Saturation < 60.0 % < 60.0 % Venous Blood Base Excess 18.2 mEq/L 18.9 mEq/L Sodium Level 135 mmol/L (136-145) Potassium Level 4.1 mmol/L (3.5-5.1) Chloride Level 87 mmol/L (98-107) Carbon Dioxide Level 45 mmol/L (21-32) Anion Gap 3.0 mmol/L (3-11) Blood Urea Nitrogen 8 mg/dl (7-18) Creatinine 0.57 mg/dl (0.60-1.20) Estimated GFR () 112.0 Estimated GFR (Non- 96.6 BUN/Creatinine Ratio 14.0 (10-20) Random Glucose 129 mg/dl (70-99) Calcium Level 8.7 mg/dl (8.5-10.1) Magnesium Level 1.2 mg/dl (1.8-2.4) Total Bilirubin 0.2 mg/dl (0.2-1) Direct Bilirubin < 0.1 mg/dl (0-0.2) Aspartate Amino Transf (AST/SGOT) 31 U/L (15-37) Alanine Aminotransferase (ALT/SGPT) 28 U/L (12-78) Alkaline Phosphatase 89 U/L (45-117) Troponin I < 0.015 ng/ml (0-0.045) Pro-B-Type Natriuretic Peptide 100 pg/ml (0-900) Total Protein 6.5 gm/dl (6.4-8.2) Albumin 3.7 gm/dl (3.4-5.0) Assessment & Plan 67yo female ordered vancomycin/zosyn/levaquin for PNA. Renal function is good. VANCOMYCIN: * Loading dose: VANCOMYCIN 1250mg (~23mg/kg) IV X 1 dose then VANCOMYCIN 750mg (~14mg/kg) IV every 12 hours. * Estimated Pk parameters: Vd ~0.7 L/kg ke ~0.067 t1/2 ~10 hours * Goal trough level estimate: between 15 - 20 mcg/mL. * Trough level has been ordered for: @ 0530. Pharmacy will continue to follow and will adjust dose/frequency as necessary. Thank you
[2017-12-03 19:20] LABS: RETIC COUNT % 1.9 % (0.5-2.0)
[2017-12-03 20:00] VITALS: BP 182/77; PULSE 94; TEMP 36.9; O2SAT 96
[2017-12-03] MEDS: IPRATROPIUM BROMIDE NEB SOLN 0.02% 2.5 ML VIAL INH SCH (20:46)
[2017-12-03 20:47] VITALS: PULSE 101; O2SAT 93
[2017-12-03] MEDS: LEVALBUTEROL 1.25MG/0.5ML NEB INH SCH (20:47)
[2017-12-03] MEDS: BUDESONIDE 0.5 MG/2 ML VIAL (PULMICORT) INH SCH (20:47)
[2017-12-03] MEDS: METHYLPREDNISOLONE IV 40 MG in SYRINGE 0 ML IV SCH (20:52)
[2017-12-03] MEDS: LEVOFLOXACIN / D5W 500 MG in PREMIXED IN D5W 100 ML IV SCH (20:53)
[2017-12-03] MEDS: GUAIFENESIN 600 MG TABCR PO SCH (20:53)
[2017-12-03] MEDS: PIPERACILL/TAZOBAC IV 3.375 GM in DEXTROSE 5% 100ML 100 ML IV SCH (20:53)
[2017-12-03] MEDS ORDERED: LEVALBUTEROL/IPRATROPIUM NEB INH SCH (21:00)
[2017-12-03 22:19] VITALS: BP 147/74; PULSE 100; TEMP 37.1; O2SAT 95
[2017-12-04] VITALS (11 sets, daily range): BP systolic 110–190; BP diastolic 62–83; PULSE 64–121; TEMP 36.5–37.3; O2SAT 88–98
[2017-12-04] MEDS: IPRATROPIUM BROMIDE NEB SOLN 0.02% 2.5 ML VIAL INH SCH ×3 (01:40→19:19)
[2017-12-04] MEDS: LEVALBUTEROL 1.25MG/0.5ML NEB INH SCH ×3 (01:40→19:19)
[2017-12-04] MEDS: VANCOMYCIN IV 750 MG in SODIUM CHLORIDE 0.9% 250ML 250 ML IV SCH ×2 (04:46→17:34)
[2017-12-04 06:06] LABS: HEMATOCRIT 32.1 % (37-47); HEMOGLOBIN 8.7 g/dL (12.0-16.0); MEAN CELL VOLUME 90.9 fL (80-100); MEAN CORPUSCULAR HEMOGLOBIN 24.6 pg (25-34); MEAN CORPUSCULAR HGB CONC 27.1 g/dl (32-36); MEAN PLATELET VOLUME 10.1 fL (7.4-10.4); PLATELET COUNT 302 K/uL (130-400); RED CELL DISTRIBUTION WIDTH SD 62.4 fL (36.4-46.3); WHITE BLOOD COUNT 10.24 K/uL (4.8-10.8)
[2017-12-04 06:13] LABS: CALCIUM 8.3 mg/dl (8.5-10.1); CREATININE 0.48 mg/dl (0.60-1.20); POTASSIUM 4.6 mmol/L (3.5-5.1)
[2017-12-04 06:14] LABS: IG# 0.04 K/uL (0.00-0.02); LYMPH % 4.7 %; LYMPH ABS # 0.48 K/uL (1.2-3.4); MONO % 4.9 %; NEUT ABS # 9.22 K/uL (1.4-6.5)
[2017-12-04] MEDS: METHYLPREDNISOLONE IV 40 MG in SYRINGE 0 ML IV SCH ×2 (07:34→20:39)
[2017-12-04] MEDS: PIPERACILL/TAZOBAC IV 3.375 GM in DEXTROSE 5% 100ML 100 ML IV SCH ×3 (07:34→22:12)
[2017-12-04] MEDS: GUAIFENESIN 600 MG TABCR PO SCH ×2 (07:35→20:39)
[2017-12-04] MEDS: PANTOprazole SOD 40 MG TAB PO SCH (07:35)
[2017-12-04] MEDS: SERTRALINE HCL 100 MG TAB PO SCH (07:35)
[2017-12-04] MEDS ORDERED: TRAZODONE HCL 50 MG TAB PO SCH (09:00)
[2017-12-04] MEDS: ZAFIRLUKAST 20 MG PO SCH (20:40)
[2017-12-04] MEDS: LEVOFLOXACIN / D5W 500 MG in PREMIXED IN D5W 100 ML IV SCH (20:52)
--- NOTE | 2017-12-04 21:53 | Progress Note ---
Subjective Date of Service: Dec 04, 2017. Subjective Pt evaluation today including: conversation w/ patient, physical exam, lab review, review of inpatient medication list Pain: no pain PO Intake: poor appetite Voiding: no voiding problems patient feels slightly better, asks if she can go home, not sure she can spend one more night in the hospital has a lot of anxiety says that her lung disease has been getting much worse recently confirmed that she takes 30mg Prednisone daily as outpatient reviewed labs, magnesium low at 1.2, Cr stable, normal WBC HR in 120's, sinus, consistently on the monitor, no symptoms per patient Problem List Medical Problems: (1) Chronic lung disease Status: Chronic (2) Dyspnea on exertion Status: Acute (3) HCAP (healthcare-associated pneumonia) Status: Acute Review of Systems Constitutional: + weakness, + fatigue Respiratory: + cough, + shortness of breath, + dyspnea on exertion Neurologic: + weakness All Other Systems: Reviewed and Negative Medications Current Inpatient Medications Medications (Trade) Dose Ordered Sig/Jrei Route Start Time Stop Time Status Last Admin Dose Admin Ioversol (Optiray 320) 111 ml UD PRN IV 12/03/17 14:30 12/07/17 14:29 Acetaminophen (Tylenol Tab) 650 mg Q4H PRN PO 12/03/17 18:30 01/02/18 18:29 12/03/17 23:38 650 MG Pantoprazole Sodium (Protonix Tab) 40 mg DAILY PO 12/04/17 09:00 01/03/18 08:59 12/04/17 07:35 40 MG Sertraline HCl (Zoloft Tab) 100 mg DAILY PO 12/04/17 09:00 01/03/18 08:59 12/04/17 07:35 100 MG Tramadol HCl (Ultram Tab) 50 mg Q4H PRN PO 12/03/17 18:30 01/02/18 18:29 Trazodone HCl (Desyrel Tab) 75 mg DAILY PO 12/04/17 09:00 01/03/18 08:59 12/04/17 07:35 75 MG Piperacillin Sod/ Tazobactam Sod 3.375 gm/Dextrose 115 ml @ 28.75 mls/ hr Q8H IV 12/03/17 22:00 12/10/17 21:59 12/04/17 14:14 28.75 MLS/HR Vancomycin HCl 750 mg/Sodium Chloride 265 ml @ 125 mls/hr Q12H IV 12/04/17 06:00 12/11/17 05:59 12/04/17 17:34 125 MLS/HR Methylprednisolone Sodium Succinate 40 mg/Syringe 0.64 ml @ 1.5 mls/min Q12H IV 12/03/17 20:00 01/02/18 19:59 12/04/17 20:39 1.5 MLS/MIN Ondansetron HCl (Zofran Inj) 4 mg Q6H PRN IV 12/03/17 18:45 01/02/18 18:44 Levofloxacin 500 mg/Prmx 100 ml @ 100 mls/hr Q24H IV 12/03/17 21:00 12/10/17 18:44 12/04/17 20:52 100 MLS/HR Guaifenesin (Mucinex Contr Rel Tab) 600 mg BID PO 12/03/17 21:00 01/02/18 20:59 12/04/17 20:39 600 MG Acetaminophen 100 ml @ 400 mls/hr Q8H PRN IV 12/03/17 18:45 01/02/18 18:44 Miscellaneous Information (Consult) 1 ea UD PRN N/A 12/03/17 18:45 01/02/18 18:44 Vancomycin HCl (Consult) 1 ea UD PRN N/A 12/03/17 18:45 01/02/18 18:44 Budesonide (Pulmicort Respules 0.5MG/ 2ML Neb Soln) 0.5 mg BIDR INH 12/03/17 20:00 01/02/18 19:59 12/03/17 20:47 0.5 MG Ipratropium [place] (Atrovent 0.02% 0.5MG/2.5ML Neb) 0.5 mg Q6R INH 12/03/17 21:00 01/02/18 20:59 12/04/17 19:19 0.5 MG Levalbuterol (Xopenex 1.25MG/ 0.5ML Neb) 1.25 mg Q6R INH 12/03/17 21:00 01/02/18 20:59 12/04/17 19:19 1.25 MG Zafirlukast (Accolate Tab) 20 mg BID PO 12/04/17 21:00 01/03/18 20:59 12/04/17 20:40 20 MG Objective Vital Signs Date Time Temp Pulse Resp B/P (MAP) Pulse Ox O2 Delivery O2 Flow Rate FiO2 12/04/17 20:35 36.9 121 26 142/83 (102) 92 Nasal Cannula 4.0 12/04/17 19:20 88 16 96 Nasal Cannula 4.0 12/04/17 14:56 37.3 108 20 144/81 (102) 88 Nasal Cannula 4.0 12/04/17 14:28 109 16 96 Nasal Cannula 4.0 12/04/17 10:41 36.9 115 20 190/63 (105) 91 Nasal Cannula 4.0 12/04/17 08:00 Nasal Cannula 4.0 12/04/17 07:55 110 18 98 Nasal Cannula 4.0 12/04/17 06:52 36.9 96 16 155/79 (104) 98 Nasal Cannula 3.0 12/04/17 03:48 37.0 98 20 154/71 (98) 96 Nasal Cannula 3.0 12/04/17 01:41 87 18 96 Nasal Cannula 4.0 12/04/17 00:00 Nasal Cannula 4.0 12/03/17 22:19 37.1 100 18 147/74 (98) 95 Nasal Cannula 4.0 Physical Exam General Appearance: no apparent distress, + thin Eyes: normal inspection, EOMI, sclerae normal ENT: normal ENT inspection, hearing grossly normal, pharynx normal Neck: supple, no adenopathy, no JVD, trachea midline Respiratory/Chest: chest non-tender, no respiratory distress, no accessory muscle use, + decreased breath sounds, + wheezing Cardiovascular: no edema, no gallop, no JVD, no murmur, + tachycardia Abdomen: normal bowel sounds, non tender, soft, no organomegaly Extremities: normal range of motion, non-tender, normal inspection, no pedal edema, no calf tenderness, + pertinent finding (clubbing, cyanosis) Neurologic/Psychiatric: 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, alert, normal mood/affect, oriented x 3, + motor weakness Skin: warm/dry, no rash, + cyanosis Laboratory Results Last 24 Hours Test 12/04/17 00:00 12/04/17 05:26 Stool Occult Blood NEGATIVE White Blood Count 10.24 K/uL Red Blood Count 3.53 M/uL Hemoglobin 8.7 g/dL Hematocrit 32.1 % Mean Corpuscular Volume 90.9 fL Mean Corpuscular Hemoglobin 24.6 pg Mean Corpuscular Hemoglobin Concent 27.1 g/dl Platelet Count 302 K/uL Mean Platelet Volume 10.1 fL Neutrophils (%) (Auto) 90.0 % Lymphocytes (%) (Auto) 4.7 % Monocytes (%) (Auto) 4.9 % Eosinophils (%) (Auto) 0.0 % Basophils (%) (Auto) 0.0 % Neutrophils # (Auto) 9.22 K/uL Lymphocytes # (Auto) 0.48 K/uL Monocytes # (Auto) 0.50 K/uL Eosinophils # (Auto) 0.00 K/uL Basophils # (Auto) 0.00 K/uL RDW Standard Deviation 62.4 fL RDW Coefficient of Variation 19.0 % Immature Granulocyte % (Auto) 0.4 % Immature Granulocyte # (Auto) 0.04 K/uL Hypochromasia PRESENT Poikilocytosis PRESENT Sodium Level 136 mmol/L Potassium Level 4.6 mmol/L Chloride Level 89 mmol/L Carbon Dioxide Level 40 mmol/L Anion Gap 7.0 mmol/L Blood Urea Nitrogen 8 mg/dl Creatinine 0.48 mg/dl Est Creatinine Clear Calc Drug Dose 90.5 ml/min Estimated GFR () 118.5 Estimated GFR (Non- 102.2 BUN/Creatinine Ratio 17.5 Random Glucose 103 mg/dl Calcium Level 8.3 mg/dl Magnesium Level 1.2 mg/dl Assessment and Plan Acute respiratory failure with hypoxia and hypercapnia/right middle lobe pneumonia/COPD exacerbation-- continue broad spectrum antibiotics with Vanco, Zosyn and Levaquin, likely taper tomorrow continue nebulizers keep Solu Medrol at 40 q8, taper tomorrow no growth on cultures WBC normal Anemia-- Hemoglobin down slightly at 8.7 heme occult negative, iron low, will check ferritin B12 and folate normal likely anemia of chronic disease GERD-- Continue pantoprazole 40 mg p.o. daily. Anxiety with depression-- Continue sertraline 100 mg p.o. daily and trazodone 75 mg p.o. at bedtime. Left rib fractures/osteoarthritis-- Continue tramadol 50 mg p.o. every 4 hours as needed. keep on tele due to tachycardia
[2017-12-05] VITALS (14 sets, daily range): BP systolic 126–162; BP diastolic 72–92; PULSE 97–104; TEMP 36.7–37.4; O2SAT 95–100
[2017-12-05] MEDS: IPRATROPIUM BROMIDE NEB SOLN 0.02% 2.5 ML VIAL INH SCH ×4 (02:38→18:58)
[2017-12-05] MEDS: LEVALBUTEROL 1.25MG/0.5ML NEB INH SCH ×4 (02:38→18:58)
[2017-12-05] MEDS ORDERED: VANCOMYCIN TROUGH ONE (05:30)
[2017-12-05] MEDS: PIPERACILL/TAZOBAC IV 3.375 GM in DEXTROSE 5% 100ML 100 ML IV SCH (05:58)
[2017-12-05] MEDS: VANCOMYCIN IV 750 MG in SODIUM CHLORIDE 0.9% 250ML 250 ML IV SCH (05:59)
[2017-12-05 06:22] LABS: HEMATOCRIT 31.3 % (37-47); HEMOGLOBIN 8.4 g/dL (12.0-16.0); MEAN CELL VOLUME 92.1 fL (80-100); MEAN CORPUSCULAR HEMOGLOBIN 24.7 pg (25-34); MEAN CORPUSCULAR HGB CONC 26.8 g/dl (32-36); MEAN PLATELET VOLUME 9.4 fL (7.4-10.4); PLATELET COUNT 263 K/uL (130-400); RED CELL DISTRIBUTION WIDTH CV 19.2 % (11.5-14.5); RED CELL DISTRIBUTION WIDTH SD 64.5 fL (36.4-46.3); WHITE BLOOD COUNT 10.06 K/uL (4.8-10.8)
[2017-12-05] MEDS ORDERED: NURSING VERBAL MED ORDER ONE ×2 (06:30→09:30)
[2017-12-05 06:39] LABS: CALCIUM 8.4 mg/dl (8.5-10.1); CREATININE 0.31 mg/dl (0.60-1.20); POTASSIUM 4.1 mmol/L (3.5-5.1)
[2017-12-05 06:54] LABS: BASO % 0.1 %; BASO ABS # 0.01 K/uL (0-0.2); IG# 0.03 K/uL (0.00-0.02); LYMPH % 4.5 %; LYMPH ABS # 0.45 K/uL (1.2-3.4); MONO % 10.2 %; MONO ABS # 1.03 K/uL (0.11-0.59); NEUT % 84.9 %; NEUT ABS # 8.54 K/uL (1.4-6.5)
[2017-12-05] MEDS: BUDESONIDE 0.5 MG/2 ML VIAL (PULMICORT) INH SCH ×2 (07:06→18:58)
[2017-12-05] MEDS: METHYLPREDNISOLONE IV 40 MG in SYRINGE 0 ML IV SCH ×2 (09:02→20:28)
[2017-12-05] MEDS: ZAFIRLUKAST 20 MG PO SCH ×2 (09:02→20:31)
[2017-12-05] MEDS: GUAIFENESIN 600 MG TABCR PO SCH ×2 (09:03→20:30)
[2017-12-05] MEDS: SERTRALINE HCL 100 MG TAB PO SCH (09:03)
[2017-12-05] MEDS: PANTOprazole SOD 40 MG TAB PO SCH (09:03)
[2017-12-05] MEDS ORDERED: MAGNESIUM OXIDE 400 MG TAB PO ONE (14:15)
[2017-12-05] MEDS: MAGNESIUM OXIDE 400 MG TAB PO SCH (20:29)
[2017-12-05] MEDS: LEVOFLOXACIN / D5W 500 MG in PREMIXED IN D5W 100 ML IV SCH (20:33)
--- NOTE | 2017-12-05 20:34 | Progress Note ---
Subjective Date of Service: Dec 05, 2017. Subjective Pt evaluation today including: conversation w/ patient, physical exam, lab review, review of inpatient medication list Pain: no pain PO Intake: poor Voiding: no voiding problems patient breathing more comfortably today, HR better on monitor patient feels like she is ready to go home, reluctant to stay discussed that with her severe COPD she is at risk for re-admission reviewed labs, HCO3 elevated at 43 which is baseline for her, Cr stable, Hb down slightly ferritin low at 29 and iron, TIBC low, iron deficient, but MCV normal Problem List Medical Problems: (1) Chronic lung disease Status: Chronic (2) Dyspnea on exertion Status: Acute (3) HCAP (healthcare-associated pneumonia) Status: Acute Review of Systems Constitutional: + weakness, + fatigue Respiratory: + cough, + shortness of breath, + dyspnea on exertion Neurologic: + weakness All Other Systems: Reviewed and Negative Medications Current Inpatient Medications Medications (Trade) Dose Ordered Sig/Jeri Route Start Time Stop Time Status Last Admin Dose Admin Ioversol (Optiray 320) 111 ml UD PRN IV 12/03/17 14:30 12/07/17 14:29 Acetaminophen (Tylenol Tab) 650 mg Q4H PRN PO 12/03/17 18:30 01/02/18 18:29 12/03/17 23:38 650 MG Pantoprazole Sodium (Protonix Tab) 40 mg DAILY PO 12/04/17 09:00 01/03/18 08:59 12/05/17 09:03 40 MG Tramadol HCl (Ultram Tab) 50 mg Q4H PRN PO 12/03/17 18:30 01/02/18 18:29 Methylprednisolone Sodium Succinate 40 mg/Syringe 0.64 ml @ 1.5 mls/min Q12H IV 12/03/17 20:00 12/05/17 22:00 12/05/17 09:02 1.5 MLS/MIN Ondansetron HCl (Zofran Inj) 4 mg Q6H PRN IV 12/03/17 18:45 01/02/18 18:44 Levofloxacin 500 mg/Prmx 100 ml @ 100 mls/hr Q24H IV 12/03/17 21:00 12/10/17 18:44 12/04/17 20:52 100 MLS/HR Guaifenesin (Mucinex Contr Rel Tab) 600 mg BID PO 12/03/17 21:00 01/02/18 20:59 12/05/17 09:03 600 MG Acetaminophen 100 ml @ 400 mls/hr Q8H PRN IV 12/03/17 18:45 01/02/18 18:44 Budesonide (Pulmicort Respules 0.5MG/ 2ML Neb Soln) 0.5 mg BIDR INH 12/03/17 20:00 01/02/18 19:59 12/05/17 18:58 0.5 MG Ipratropium [place] (Atrovent 0.02% 0.5MG/2.5ML Neb) 0.5 mg Q6R INH 12/03/17 21:00 01/02/18 20:59 12/05/17 18:58 0.5 MG Levalbuterol (Xopenex 1.25MG/ 0.5ML Neb) 1.25 mg Q6R INH 12/03/17 21:00 01/02/18 20:59 12/05/17 18:58 1.25 MG Zafirlukast (Accolate Tab) 20 mg BID PO 12/04/17 21:00 01/03/18 20:59 12/05/17 09:02 20 MG Trazodone HCl (Desyrel Tab) 75 mg HS PO 12/05/17 21:00 01/04/18 20:59 Sertraline HCl (Zoloft Tab) 100 mg HS PO 12/05/17 21:00 01/04/18 20:59 Prednisone (PredniSONE TAB) 50 mg QAM PO 12/06/17 09:00 01/05/18 08:59 Magnesium Oxide (Mag-Ox Tab) 400 mg BID PO 12/05/17 21:00 01/04/18 20:59 Objective Vital Signs Date Time Temp Pulse Resp B/P (MAP) Pulse Ox O2 Delivery O2 Flow Rate FiO2 12/05/17 18:58 101 16 97 Nasal Cannula 4.0 12/05/17 16:35 36.9 101 18 152/84 (106) 99 12/05/17 16:00 99 Nasal Cannula 4.0 12/05/17 15:14 37.1 99 20 99 Nasal Cannula 4.0 12/05/17 15:10 37.1 99 20 99 4.0 12/05/17 14:34 102 16 97 Nasal Cannula 4.0 12/05/17 12:21 37.4 99 18 132/72 (92) 95 Room Air 12/05/17 08:00 98 Nasal Cannula 4.0 12/05/17 07:06 100 16 98 Nasal Cannula 4.0 12/05/17 06:42 37.0 97 16 126/83 (97) 100 Nasal Cannula 4.0 Humidified Oxygen 12/05/17 03:30 Nasal Cannula 4.0 12/05/17 03:19 36.7 102 16 126/73 (90) 98 Nasal Cannula 3.0 Humidified Oxygen 12/05/17 02:38 101 16 96 Nasal Cannula 4.0 12/04/17 23:33 36.9 107 18 125/74 (91) 97 Nasal Cannula 3.0 Humidified Oxygen 12/04/17 20:35 36.9 121 26 142/83 (102) 92 Nasal Cannula 4.0 Physical Exam General Appearance: no apparent distress, + thin Eyes: normal inspection, EOMI, sclerae normal ENT: normal ENT inspection, hearing grossly normal, pharynx normal Neck: supple, no adenopathy, no JVD, trachea midline Respiratory/Chest: chest non-tender, no respiratory distress, no accessory muscle use, + decreased breath sounds, + crackles (left base) Cardiovascular: no edema, no gallop, no JVD, no murmur, + tachycardia Abdomen: normal bowel sounds, non tender, soft, no organomegaly Extremities: normal range of motion, non-tender, normal inspection, no pedal edema, no calf tenderness, pelvis stable Neurologic/Psychiatric: documentation nurse II-XII nml as tested, alert, normal mood/affect, oriented x 3, + motor weakness Skin: normal color, warm/dry, no rash Laboratory Results Last 24 Hours Test 12/05/17 05:55 White Blood Count 10.06 K/uL Red Blood Count 3.40 M/uL Hemoglobin 8.4 g/dL Hematocrit 31.3 % Mean Corpuscular Volume 92.1 fL Mean Corpuscular Hemoglobin 24.7 pg Mean Corpuscular Hemoglobin Concent 26.8 g/dl Platelet Count 263 K/uL Mean Platelet Volume 9.4 fL Neutrophils (%) (Auto) 84.9 % Lymphocytes (%) (Auto) 4.5 % Monocytes (%) (Auto) 10.2 % Eosinophils (%) (Auto) 0.0 % Basophils (%) (Auto) 0.1 % Neutrophils # (Auto) 8.54 K/uL Lymphocytes # (Auto) 0.45 K/uL Monocytes # (Auto) 1.03 K/uL Eosinophils # (Auto) 0.00 K/uL Basophils # (Auto) 0.01 K/uL RDW Standard Deviation 64.5 fL RDW Coefficient of Variation 19.2 % Immature Granulocyte % (Auto) 0.3 % Immature Granulocyte # (Auto) 0.03 K/uL Hypochromasia PRESENT Sodium Level 141 mmol/L Potassium Level 4.1 mmol/L Chloride Level 94 mmol/L Carbon Dioxide Level 43 mmol/L Anion Gap 4.0 mmol/L Blood Urea Nitrogen 7 mg/dl Creatinine 0.31 mg/dl Est Creatinine Clear Calc Drug Dose 138.7 ml/min Estimated GFR () 136.8 Estimated GFR (Non- 118.0 BUN/Creatinine Ratio 22.2 Random Glucose 115 mg/dl Calcium Level 8.4 mg/dl Magnesium Level 1.3 mg/dl Ferritin 29.7 ng/ml Vancomycin Level Trough 7.2 mcg/ml Assessment and Plan Acute respiratory failure with hypoxia and hypercapnia/right middle lobe pneumonia/COPD exacerbation-- taper abx to just Levaquin continue nebulizers Solu Medrol q12 today, change to Prednisone 50mg daily tomorrow no growth on cultures Anemia-- Hemoglobin down slightly at 8.4 heme occult negative, iron low, will check ferritin -- 29 suggests iron deficiency give Venofer tomorrow, will d/c on Ferrous Sulfate B12 and folate normal likely anemia of chronic disease in addition to the deficiency GERD-- Continue pantoprazole 40 mg p.o. daily. Anxiety with depression-- Continue sertraline 100 mg p.o. daily and trazodone 75 mg p.o. at bedtime. Left rib fractures/osteoarthritis-- Continue tramadol 50 mg p.o. every 4 hours as needed. transfer to medical floor
[2017-12-05] MEDS ORDERED: TRAZODONE HCL 50 MG TAB PO SCH (21:00)
[2017-12-05] MEDS ORDERED: SERTRALINE HCL 100 MG TAB PO SCH (21:00)
[2017-12-06] MEDS: IPRATROPIUM BROMIDE NEB SOLN 0.02% 2.5 ML VIAL INH SCH ×3 (02:00→14:12)
[2017-12-06] MEDS: LEVALBUTEROL 1.25MG/0.5ML NEB INH SCH ×3 (02:00→14:12)
[2017-12-06 07:06] LABS: MEAN CELL VOLUME 93.7 fL (80-100); MEAN CORPUSCULAR HEMOGLOBIN 24.2 pg (25-34); MEAN CORPUSCULAR HGB CONC 25.8 g/dl (32-36); PLATELET COUNT 262 K/uL (130-400); RED CELL DISTRIBUTION WIDTH CV 19.3 % (11.5-14.5); RED CELL DISTRIBUTION WIDTH SD 66.6 fL (36.4-46.3); WHITE BLOOD COUNT 8.71 K/uL (4.8-10.8)
[2017-12-06 07:10] VITALS: PULSE 98; O2SAT 97
[2017-12-06] MEDS: BUDESONIDE 0.5 MG/2 ML VIAL (PULMICORT) INH SCH (07:10)
[2017-12-06 07:32] LABS: CALCIUM 8.1 mg/dl (8.5-10.1); CREATININE 0.34 mg/dl (0.60-1.20)
[2017-12-06 07:53] VITALS: BP 132/76; PULSE 94; TEMP 37.4; O2SAT 95
[2017-12-06] MEDS: ZAFIRLUKAST 20 MG PO SCH (07:56)
[2017-12-06] MEDS: PANTOprazole SOD 40 MG TAB PO SCH (07:57)
[2017-12-06] MEDS: GUAIFENESIN 600 MG TABCR PO SCH (07:57)
[2017-12-06] MEDS: MAGNESIUM OXIDE 400 MG TAB PO SCH (07:57)
[2017-12-06 08:00] VITALS: O2SAT 95
[2017-12-06 08:12] LABS: EOS % 0.1 %; EOS ABS # 0.01 K/uL (0-0.5); IG# 0.05 K/uL (0.00-0.02); LYMPH ABS # 0.52 K/uL (1.2-3.4); MONO ABS # 1.22 K/uL (0.11-0.59); NEUT % 79.3 %; NEUT ABS # 6.91 K/uL (1.4-6.5)
--- NOTE | 2017-12-06 11:46 | DIAGNOSTIC IMAGING REPORT ---
CHEST ONE VIEW PORTABLE CLINICAL HISTORY: Dyspnea. Hypoxia. COMPARISON STUDY: Chest radiograph and chest CT December 03, 2017. FINDINGS: Patient is rotated. Numerous healing bilateral rib fractures are noted. There is no pneumothorax or pleural effusion. Note is made of pulmonary vascular congestion without overt pulmonary edema. Cardiomegaly is unchanged. Mild right infrahilar opacity is present. IMPRESSION: 1. No change in appearance of the chest. Pulmonary vascular congestion without overt pulmonary edema. 2. Right infrahilar opacity which likely corresponds to right middle lobe opacity on chest CT. Electronically signed by: Bridger Farfan M.D. 12/06/2017 11:44 AM Dictated Date/Time: 12/06/2017 11:40 AM
[2017-12-06] MEDS ORDERED: IRON SUCROSE INJ 100 MG in SODIUM CHLORIDE 0.9% 100ML 100 ML IV ONE (14:00)
[2017-12-06 14:14] VITALS: BP 141/82; PULSE 100; PULSE 102; TEMP 36.7; O2SAT 92; O2SAT 97
[2017-12-06 14:34] VITALS: BP 141/82; PULSE 102; TEMP 36.7; O2SAT 92
[2017-12-06] MEDS ORDERED: PRED20TA PO (14:36)
[2017-12-06] MEDS ORDERED: FRRS300 PO (14:36)
[2017-12-06] MEDS ORDERED: LEVO-366 PO (14:36)
--- NOTE | 2017-12-06 14:48 | Discharge Instructions ---
Discharge Instructions Date of Service Dec 06, 2017. Admission Reason for Admission: Anemia, Pneumonia Of Right Middle Lobe Due To Discharge Discharge Diagnosis / Problem: Pneumonia right middle lobe, anemia, COPD ( severe) Discharge Goals Goal(s): Improve function, Improve disease control Activity Recommendations Activity Limitations: resume your previous activity . Instructions / Follow-Up Instructions / Follow-Up Medications: - PREDNISONE: taper as follows, take 80mg daily for two more days, then 60mg daily for 3 days, then 40mg daily x 3 days then resume your daily 30mg dosing - LEVAQUIN: 500mg daily for 4 more days - FERROUS SULFATE: iron supplementation, take twice a day, can lead to constipation Right middle lobe pneumonia, exacerbation of COPD improved over past 3 days, treated with IV steroids and Levaquin complete the above Prednisone taper and Levaquin for 4 more days continue maintenance inhalers at home recommend follow up with Dr. Harris this week Anemia, iron deficiency ferritin, iron and total iron binding capacity all low received Venofer IV today, continue on Ferrous Sulfate twice a day as outpatient follow up with Dr. Harris this week, can repeat H/H (blood counts) Current Hospital Diet Patient's current hospital diet: Regular Diet Discharge Diet Recommended Diet: Regular Diet Pending Studies Studies pending at discharge: no Laboratory Results Hemoglobin A1c Test 11/24/17 15:26 Range/Units Estimated Average Glucose 117 mg/dl Hemoglobin A1c 5.7 H 4.5-5.6 % Medical Emergencies . Who to Call and When: Medical Emergencies: If at any time you feel your situation is an emergency, please call 911 immediately. . Non-Emergent Contact Non-Emergency issues call your: Primary Care Provider Call Non-Emergent contact if: you have any medication questions . . "Provider Documentation" section prepared by Parker Guillory. . [place] Drug Monitoring Program Search Results: no issues identified
== END 2017-12-06 15:19 | disposition home or self-care (01) | DRG 193 ==
LOC: C.EDB 14:04 → C.2T 18:29 → ENRESERV 19:05 → C.MS2W 12-05 16:00
PROVIDERS: ADMIT Hospitalist; ATTEND Internal Medicine
DX: J18.9 Pneumonia, unspecified organism (principal); J96.21 Acute and chronic respiratory failure with hypoxia; J96.22 Acute and chronic respiratory failure with hypercapnia; J44.0 Chronic obstructive pulmonary disease with (acute) lower respiratory infection; J44.1 Chronic obstructive pulmonary disease with (acute) exacerbation; S22.42XA Multiple fractures of ribs, left side, initial encounter for closed fracture; D50.9 Iron deficiency anemia, unspecified; D63.8 Anemia in other chronic diseases classified elsewhere; M19.90 Unspecified osteoarthritis, unspecified site; K21.9 Gastro-esophageal reflux disease without esophagitis; F41.9 Anxiety disorder, unspecified; F32.9 Major depressive disorder, single episode, unspecified; Z79.899 Other long term (current) drug therapy; Z79.52 Long term (current) use of systemic steroids; Z99.81 Dependence on supplemental oxygen; W19.XXXA Unspecified fall, initial encounter; Y99.8 Other external cause status

== ENCOUNTER 2018-05-02 15:21 | Inpatient (IN) ==
[2018-05-02] MEDS ORDERED: ALBUT/IPRATROP 3MG/0.5MG NEB 3 ML VIAL NEB STA (16:02)
[2018-05-02] MEDS ORDERED: CEFEPIME 2,000 MG in SYRINGE 7.5 ML IV STA (16:02)
[2018-05-02] MEDS ORDERED: methylPREDNISolone 60 MG in SYRINGE 1 ML IV STA (16:02)
[2018-05-02 16:25] LABS: Partial Thromboplastin Ratio 0.9; Prothrombin Time 10.3 Seconds (9.0-12.0)
[2018-05-02 16:33] LABS: Hematocrit (blood only) 35.6 % (37-47); Hemoglobin 10.4 g/dL (12.0-16.0); Mean Corpuscular Hemoglobin 29.7 pg (25-34); Mean Corpuscular Hgb Conc 29.2 g/dL (32-36); Mean Corpuscular Volume 101.7 fL (80-100); Platelet Count 290 K/uL (130-400); White Blood Count 8.61 K/uL (4.8-10.8)
[2018-05-02 16:51] LABS: Alanine Aminotransferase 19 U/L (12-78); Albumin Globulin Ratio 0.9 (0.9-2); Albumin Level 3.4 gm/dl (3.4-5.0); Alkaline Phosphatase 76 U/L (45-117); Aspartate Aminotransferase 18 U/L (15-37); Bilirubin,Total 0.2 mg/dl (0.2-1); Blood Urea Nitrogen 5 mg/dl (7-18); Calcium 8.9 mg/dl (8.5-10.1); Carbon Dioxide 42 mmol/L (21-32); Chloride 88 mmol/L (98-107); Est GFR (African American) 113.3; Est GFR (Non-African American) 97.7; Globulin 3.6 gm/dl (2.5-4.0); Glucose 189 mg/dl (70-99); Magnesium 1.3 mg/dl (1.8-2.4); Potassium 4.2 mmol/L (3.5-5.1); Sodium 133 mmol/L (136-145); Troponin I < 0.015 ng/ml (0-0.045)
--- NOTE | 2018-05-02 16:56 | Emergency Department Note ---
Entered by Sindy Peña acting as a scribe for Pro Banks MD History of Present Illness General Chief complaint: Shortness of Breath/Dyspnea Stated complaint: SOB Time Seen by Provider: 05/02/18 15:52 Source: patient and family History of Present Illness Onset (ago): day(s) 4 Location: chest Pain Consistency: + other (worsening) Quality: + other (shortness of breath) Exacerbated By: + movement Associated symptoms: + cough and + fever/chills; no chest pain and no nausea/ vomiting The patient is a 67 year old female who presents to the Emergency Room with complaints of worsening shortness of breath that started 4 days ago. She notes it is worse with exertion. The patient has a history of eosinophilic pneumonia. She recently got a cold and went to see her physician. She had a chest x-ray done which showed evidence of pneumonia. She was started on 50mg of Prednisone daily and Avelox 4 days ago. The patient usually wears 4L of O2, but has had to increase it to 5-6L. The patient also complains of cough and fevers. She denies chest pain or vomiting. She notes her last breathing treatment was yesterday. Home Medications Home Medications Medication Instructions Recorded Confirmed Type albuterol sulfate [Proventil HFA] 2 puff INHALATION Q4 PRN 03/07/18 05/02/18 History beclomethasone dipropionate [Qvar 2 puff INHALATION BID 03/07/18 05/02/18 History RediHaler] ferrous sulfate 325 mg PO BID 03/07/18 05/02/18 History ibandronate 150 mg PO MONTHLY 03/07/18 05/02/18 History pantoprazole 40 mg PO QAM 03/07/18 05/02/18 History sertraline 100 mg PO QAM 03/07/18 05/02/18 History sulfamethoxazole-trimethoprim 1 tab PO BID 03/07/18 05/02/18 History tiotropium bromide [Spiriva with 1 cap INHALATION DAILY 03/07/18 05/02/18 History HandiHaler] tramadol 50 mg PO Q4 PRN 03/07/18 05/02/18 History trazodone 50 mg PO HS 03/07/18 05/02/18 History zafirlukast 20 mg PO BID 03/07/18 05/02/18 History moxifloxacin [Avelox] 400 mg PO DAILY 04/26/18 05/02/18 History budesonide-formoterol [Symbicort] 2 puff INHALATION BID 05/02/18 05/02/18 History levalbuterol HCl 1.25 mg INHALATION Q4 PRN 05/02/18 05/02/18 History lorazepam 0.5 mg PO DIRECTED PRN 05/02/18 05/02/18 History prednisone 50 mg PO DAILY 05/02/18 05/02/18 History Allergies Allergy/AdvReac Type Severity Reaction Status Date / Time No Known Allergies Allergy Verified 05/02/18 16:36 Past Med/Surg History Medical History On home oxygen therapy 3-4L CONT. Eosinophilic pneumonia Anemia Chronic steroid use GERD (gastroesophageal reflux disease) Spinal stenosis Chronic lung disease (Chronic) Surgical History History of bronchoscopy History of tooth extraction History of colonoscopy Social History Current Living Situation: Spouse Feels Safe at Home: Yes Smoking Status: Never smoker Second Hand Exposure: No Hx Alcohol Use: Yes Alcohol type: beer, wine and hard liquor Alcohol Intake Frequency: a few times a week Hx Substance Use: No Beliefs That Will Affect Care: None Preferred Language: Thai Communication Ability: Effective Review of Systems See HPI for pertinent positives & negatives. and A total of 10 systems reviewed and were otherwise negative Physical Exam Vital Signs Vital Signs - 24 hr 05/02/18 15:21 05/02/18 15:30 05/02/18 16:03 Temperature 36.9 C Temperature Source Oral Sepsis Recent Fever Within 48 Hours No Sepsis New/Unexplained Change in Mental Status No Sepsis Action Taken by Nursing No Action Required Pulse Rate 107 H 104 H Pulse Rhythm Regular Respiratory Rate 24 28 H Respiratory Effort / Characteristics Labored Respiratory Depth Shallow Respiratory Pattern Tachypnea Blood Pressure 140/70 Blood Pressure Mean 93 Pulse Oximetry 94 90 98 Oxygen Delivery Method Nasal Cannula Nasal Cannula Nasal Cannula Oxygen Flow Rate 5 5 5 05/02/18 16:13 05/02/18 16:20 05/02/18 16:24 Temperature Temperature Source Sepsis Recent Fever Within 48 Hours Sepsis New/Unexplained Change in Mental Status Sepsis Action Taken by Nursing Pulse Rate 102 H 101 H 99 H Pulse Rhythm Respiratory Rate 21 31 H 20 Respiratory Effort / Characteristics Respiratory Depth Respiratory Pattern Blood Pressure 154/89 H Blood Pressure Mean 110 Pulse Oximetry 98 94 100 Oxygen Delivery Method Oxygen Flow Rate 05/02/18 16:30 05/02/18 16:31 05/02/18 16:40 Temperature Temperature Source Sepsis Recent Fever Within 48 Hours Sepsis New/Unexplained Change in Mental Status Sepsis Action Taken by Nursing Pulse Rate 100 H 100 H 104 H Pulse Rhythm Respiratory Rate 27 H 21 26 H Respiratory Effort / Characteristics Respiratory Depth Respiratory Pattern Blood Pressure 142/97 H Blood Pressure Mean 112 Pulse Oximetry 100 100 92 Oxygen Delivery Method Oxygen Flow Rate 05/02/18 16:50 05/02/18 17:00 05/02/18 17:10 Temperature Temperature Source Sepsis Recent Fever Within 48 Hours Sepsis New/Unexplained Change in Mental Status Sepsis Action Taken by Nursing Pulse Rate 105 H 104 H 103 H Pulse Rhythm Respiratory Rate 28 H 17 22 Respiratory Effort / Characteristics Respiratory Depth Respiratory Pattern Blood Pressure Blood Pressure Mean Pulse Oximetry 95 98 97 Oxygen Delivery Method Oxygen Flow Rate 05/02/18 17:20 05/02/18 17:29 05/02/18 17:30 Temperature Temperature Source Sepsis Recent Fever Within 48 Hours Sepsis New/Unexplained Change in Mental Status Sepsis Action Taken by Nursing Pulse Rate 101 H 104 H 102 H Pulse Rhythm Respiratory Rate 27 H 26 H 33 H Respiratory Effort / Characteristics Respiratory Depth Respiratory Pattern Blood Pressure 143/81 H Blood Pressure Mean 101 Pulse Oximetry 95 93 94 Oxygen Delivery Method Oxygen Flow Rate 05/02/18 17:40 Temperature Temperature Source Sepsis Recent Fever Within 48 Hours Sepsis New/Unexplained Change in Mental Status Sepsis Action Taken by Nursing Pulse Rate 104 H Pulse Rhythm Respiratory Rate 26 H Respiratory Effort / Characteristics Respiratory Depth Respiratory Pattern Blood Pressure Blood Pressure Mean Pulse Oximetry 92 Oxygen Delivery Method Oxygen Flow Rate GENERAL: Patient is in no acute distress. HEENT: No acute trauma, normocephalic atraumatic, mucous membranes moist, no nasal congestion, no scleral icterus. Subtle right facial droop. NECK: No stridor, no adenopathy, no meningismus, trachea is midline. LUNGS: Wheezing and rhonchi bilaterally, diminished breath sounds bilaterally, breath sounds equal. HEART: Tachycardic with an irregular rhythm, no murmurs. ABDOMEN: Soft, nontender, bowel sounds positive, no hernias, no peritonitis. EXTREMITIES: No cyanosis or edema, full range of motion of all the joints without pain or difficulty, no signs for acute trauma. NEUROLOGIC: Oriented x 3, no acute motor or sensory deficits, no focal weakness. SKIN: No rash, no jaundice, no diaphoresis. Course 1552: Past medical records reviewed. The patient was evaluated in room C4, and a complete history and physical examination were performed. 1520: I reviewed the patient's case with Dr. López, [facility] Hospitalist. She will evaluate the patient for further management. Consultations Consultation #1: I reviewed the patient's case with Dr. López, [facility] Hospitalist. She will evaluate the patient for further management. Time: 15:20 Administered Medications Discontinued Medications Albuterol (Duoneb) 3 ml NEB NOW STA Stop: 05/02/18 16:03 Last Admin: 05/02/18 16:19 Dose: 3 ml Cefepime HCl 2,000 mg/ Syringe 20 mls @ 5.5 mls/min IV NOW STA Stop: 05/02/18 16:05 Last Admin: 05/02/18 17:18 Dose: 5.5 mls/min Methylprednisolone 60 mg/ (Syringe) 1.96 mls @ 1.5 mls/min IV NOW STA Stop: 05/02/18 16:03 Last Admin: 05/02/18 16:19 Dose: 1.5 mls/min Magnesium Sulfate/Dextrose (Magnesium Sulfate / D5w) 1 gm in 100 mls @ 100 mls/ hr IV ONE ONE Stop: 05/02/18 17:56 Last Admin: 05/02/18 17:40 Dose: 100 mls/hr Medical Decision Making Differential Diagnosis Differential includes: pneumonia, bronchitis, influenza, CHF, failed outpatient treatment, anemia, dehydration, electrolyte imbalance, sepsis. Medical Records Attestation: I reviewed the patient's medical records. Home Medications Current Medication List: was personally reviewed by me Laboratory Data Attestation: I reviewed the patient's lab results. Result diagrams: 05/02/18 15:55 05/02/18 15:55 Lab Results 05/02/18 05/02/18 05/02/18 Range/Units 15:55 15:55 15:55 WBC 8.61 (4.8-10.8) K/uL RBC 3.50 L (4.2-5.4) M/uL Hgb 10.4 L (12.0-16.0) g/dL Hct 35.6 L (37-47) % MCV 101.7 H (80-100) fL MCH 29.7 (25-34) pg MCHC 29.2 L (32-36) g/dL Plt Count 290 (130-400) K/uL Immature Gran % (Auto) 0.3 % Neut % (Auto) 90.1 % Lymph % (Auto) 5.8 % [place] % (Auto) 3.7 % Eos % (Auto) 0.1 % Baso % (Auto) 0.0 % Immature Gran # (Auto) 0.03 H (0.00-0.02) K/uL Neut # (Auto) 7.75 H (1.4-6.5) K/uL Lymph # (Auto) 0.50 L (1.2-3.4) K/uL [place] # (Auto) 0.32 (0.11-0.59) K/uL Eos # (Auto) 0.01 (0-0.5) K/uL Baso # (Auto) 0.00 (0-0.2) K/uL PT 10.3 (9.0-12.0) Seconds INR 1.0 (0.9-1.1) APTT 23.0 (21.0-31.0) Seconds PTT Ratio 0.9 Sodium 133 L (136-145) mmol/L Potassium 4.2 (3.5-5.1) mmol/L Chloride 88 L (98-107) mmol/L Carbon Dioxide 42 H* (21-32) mmol/L Anion Gap 1.0 L (3-11) BUN 5 L (7-18) mg/dl Creatinine 0.55 L (0.6-1.2) mg/dl Est Cr Clr Drug Dosing Not Reportable Est GFR ( Amer) 113.3 Est GFR (Non-Af Amer) 97.7 BUN/Creatinine Ratio 10.0 (10-20) Glucose 189 H (70-99) mg/dl POC Lactic Acid Cruz (0.90-1.70) mmol/L Calcium 8.9 (8.5-10.1) mg/dl Magnesium 1.3 L (1.8-2.4) mg/dl Total Bilirubin 0.2 (0.2-1) mg/dl AST 18 (15-37) U/L ALT 19 (12-78) U/L Alkaline Phosphatase 76 (45-117) U/L Troponin I < 0.015 (0-0.045) ng/ml Total Protein 7.0 (6.4-8.2) gm/dl Albumin 3.4 (3.4-5.0) gm/dl Globulin 3.6 (2.5-4.0) gm/dl Albumin/Globulin Ratio 0.9 (0.9-2) 05/02/18 Range/Units 17:12 WBC (4.8-10.8) K/uL RBC (4.2-5.4) M/uL Hgb (12.0-16.0) g/dL Hct (37-47) % MCV (80-100) fL MCH (25-34) pg MCHC (32-36) g/dL Plt Count (130-400) K/uL Immature Gran % (Auto) % Neut % (Auto) % Lymph % (Auto) % [place] % (Auto) % Eos % (Auto) % Baso % (Auto) % Immature Gran # (Auto) (0.00-0.02) K/uL Neut # (Auto) (1.4-6.5) K/uL Lymph # (Auto) (1.2-3.4) K/uL [place] # (Auto) (0.11-0.59) K/uL Eos # (Auto) (0-0.5) K/uL Baso # (Auto) (0-0.2) K/uL PT (9.0-12.0) Seconds INR (0.9-1.1) APTT (21.0-31.0) Seconds PTT Ratio Sodium (136-145) mmol/L Potassium (3.5-5.1) mmol/L Chloride (98-107) mmol/L Carbon Dioxide (21-32) mmol/L Anion Gap (3-11) BUN (7-18) mg/dl Creatinine (0.6-1.2) mg/dl Est Cr Clr Drug Dosing Est GFR ( Amer) Est GFR (Non-Af Amer) BUN/Creatinine Ratio (10-20) Glucose (70-99) mg/dl POC Lactic Acid Cruz 1.85 H (0.90-1.70) mmol/L Calcium (8.5-10.1) mg/dl Magnesium (1.8-2.4) mg/dl Total Bilirubin (0.2-1) mg/dl AST (15-37) U/L ALT (12-78) U/L Alkaline Phosphatase (45-117) U/L Troponin I (0-0.045) ng/ml Total Protein (6.4-8.2) gm/dl Albumin (3.4-5.0) gm/dl Globulin (2.5-4.0) gm/dl Albumin/Globulin Ratio (0.9-2) Imaging Data Radiologist's Impression: Radiology results as stated below per my review and the radiologist's interpretation: SINGLE VIEW CHEST CLINICAL HISTORY: Sepsis. FINDINGS: An AP, portable, upright chest radiograph is compared to study dated and correlated with chest CT dated 12/03/2017. The examination is degraded by portable technique and patient rotation. The heart is enlarged and there is atherosclerotic calcification of the thoracic aorta. The pulmonary vasculature is noncongested. Foci of parenchymal scarring, apical scarring, and chronic interstitial thickening are similar to previous. There is no evidence of superimposed airspace consolidation or large pleural effusion. No pneumothorax is seen. The skeletal structures are osteopenic. There are healed bilateral rib fractures. Degenerative changes noted throughout the thoracic spine. Arthritic change is also seen in the shoulders. IMPRESSION: Cardiomegaly and chronic parenchymal changes as above. No acute cardiopulmonary abnormality is identified. Electronically signed by: Pro Forrest M.D. 05/02/2018 4:56 PM ECG Data Attestation: I personally reviewed and interpreted this ECG as follows: Indication: SOB/dyspnea Rate (beats per minute): 104 Rhythm: sinus tachycardia Findings: + PAC; no ST elevation Blood Pressure Blood Pressure Findings: Elevated blood pressure Blood Pressure Disposition: further management by hospitalist [facility] Narrative There is no leukocytosis. The patient is anemic but this looks baseline looking back at previous testing. No coagulopathy. Influenza testing is pending. Renal panel testing shows a CO2 of 42, this is normal for the patient looking back at previous testing. Magnesium is low at 1.3, a low magnesium value is a chronic problem for her. Lactic acid level is not significantly elevated making severe sepsis less likely. There was no hepatitis. EKG shows a sinus rhythm, no acute ischemia. Cardiac enzyme testing x1 is not consistent with acute cardiac injury. Blood cultures are pending. Chest film shows chronic findings, no CHF, no pneumothorax or obvious acute pneumonia. The patient is failing outpatient treatment for pneumonia/bronchitis. She has chronic lung disease. She has been increasing her home O2 to feel less dyspneic. The patient received IV cefepime as antibiotic coverage. She received IV Solu- Medrol and was given a dose of IV magnesium. She was given a DuoNeb. The patient is in need of a hospital stay. She has a bronchitis or pneumonia on top of her chronic lung disease. She is on steroids and antibiotics as an outpatient without improvement. She seemed dyspneic here on exam and she had quite a bit of wheezing and rhonchi on exam. I did speak to the patient and case management. The on-call hospitalist was consulted. Impression & Plan Pneumonia, Shortness of breath, Hypomagnesemia, Failure of outpatient treatment Discharge Plan Visit Data Chief Complaint: Shortness of Breath/Dyspnea Stated Complaint: SOB ED Provider: Pro Banks Discharge Problem: Pneumonia, Shortness of breath, Hypomagnesemia, Failure of outpatient treatment Patient Disposition: Being Evaluated by Hospitalist Forms Stand Alone Forms: My [facility] Prescriptions Prescriptions: No Action pantoprazole 40 mg tablet,delayed release (DR/EC) 40 mg PO QAM RF: 0 albuterol sulfate [Proventil HFA] 90 mcg/actuation HFA aerosol inhaler 2 puff Inhalation Q4 PRN (Reason: Shortness Of Breath Or Wheezing) RF: 0 ferrous sulfate 325 mg (65 mg iron) tablet,delayed release (DR/EC) 325 mg PO BID RF: 0 sertraline 100 mg tablet 100 mg PO QAM RF: 0 sulfamethoxazole-trimethoprim 800-160 mg tablet 1 tab PO BID RF: 0 tramadol 50 mg tablet 50 mg PO Q4 PRN (Reason: Pain) RF: 0 tiotropium bromide [Spiriva with HandiHaler] 18 mcg capsule, w/inhalation device 1 cap Inhalation DAILY RF: 0 ibandronate 150 mg Tablet 150 mg PO MONTHLY RF: 0 beclomethasone dipropionate [Qvar RediHaler] 80 mcg/actuation Hfa Aerosol Breath Activated 2 puff INHALATION BID RF: 0 trazodone 50 mg tablet 50 mg PO HS RF: 0 zafirlukast 20 mg tablet 20 mg PO BID RF: 0 lorazepam 0.5 mg Tablet 0.5 mg PO DIRECTED PRN (Reason: Anxiety) RF: 0 prednisone 50 mg Tablet 50 mg PO DAILY RF: 0 levalbuterol HCl 1.25 mg/3 mL Solution For Nebulization 1.25 mg INHALATION Q4 PRN (Reason: Shortness Of Breath Or Wheezing) RF: 0 budesonide-formoterol [Symbicort] 160-4.5 mcg/actuation Hfa Aerosol Inhaler 2 puff INHALATION BID RF: 0 moxifloxacin [Avelox] 400 mg Tablet 400 mg PO DAILY RF: 0 Referrals Referrals: Marquez Keith MD [Primary Care Provider] - The scribe's documentation has been prepared under my direction and personally reviewed by me in its entirety. I confirm that the note above accurately reflects all work, treatment, procedures, and medical decision making performed by me.
[2018-05-02] MEDS ORDERED: MAGNESIUM SULFATE / D5W 1 GM/100 ML BAG IV ONE (16:57)
--- NOTE | 2018-05-02 16:57 | XRay Report ---
SINGLE VIEW CHEST CLINICAL HISTORY: Sepsis. FINDINGS: An AP, portable, upright chest radiograph is compared to study dated 04/30/2018 and correlate d with chest CT dated 12/03/2017. The examination is degraded by portable technique and patient rotatio n. The heart is enlarged and there is atherosclerotic calcification of the thoracic aorta. The pulmo nary vasculature is noncongested. Foci of parenchymal scarring, apical scarring, and chronic intersti tial thickening are similar to previous. There is no evidence of superimposed airspace consolidation or large pleural effusion. No pneumothorax is seen. The skeletal structures are osteopenic. There are healed bilateral rib fractures. Degenerative changes noted throughout the thoracic spine. Arthritic change is also seen in the shoulders. IMPRESSION: Cardiomegaly and chronic parenchymal changes as above. No acute cardiopulmonary abnormali ty is identified. Electronically signed by: Pro Forrest M.D. 05/02/2018 4:56 PM
[2018-05-02 17:14] LABS: Eosinophils # (auto) 0.01 K/uL (0-0.5); Eosinophils % (auto) 0.1 %; Immature Granulocytes # (auto) 0.03 K/uL (0.00-0.02); Immature Granulocytes % (auto) 0.3 %; Lymphocytes % (auto) 5.8 %; Monocytes # (auto) 0.32 K/uL (0.11-0.59); Monocytes % (auto) 3.7 %; Neutrophils # (auto) 7.75 K/uL (1.4-6.5); Neutrophils % (auto) 90.1 %
--- NOTE | 2018-05-02 17:58 | History & Physical Report ---
Date of Service May 02, 2018 Assessment & Plan (1) Shortness of breath: Likely eosinophilic pneumonitis/bronchitis in the setting of viral infection CXR neg for PNA, will not continue abx Trop neg x1 Flu swab pending Blood cx pending steroids/nebs as below (2) Failure of outpatient treatment: As noted in HPI (3) Eosinophilic pneumonia: IV steroids, nebs Pulm c/s pending Follows with Dr. Harris as outpt (4) Chronic steroid use: Holding home pred dose while on IV Baseline use is 30mg daily (5) GERD (gastroesophageal reflux disease): continue home meds (6) Hypomagnesemia: Replaced in the ED, monitor (7) Weight loss: Pt has c-scope planned but has had to be cx in the past due to respiratory issues (8) Anemia: Elevated on admission to 10.4 Has appt with hem/onc this Thursday, will need rescheduled (9) DVT prophylaxis: Lovenox History of Present Illness Primary Care Provider: Marquez Hein MD 67 y/o F c/o worsening SOB. Pt has hx of eosinophilic esophagitis. She is on continue home O2, 4L. She developed a cough recently and it was producing green sputum. They have avelox at home, so they started taking this. They were seen by Nita Branch and her baseline steroid dosing was increased from 30mg to 50mg. Shewas feeling a bit better on Thursday, however last night pt was having increased SOB. She turned her O2 up to 6L but today she was still having worsening SOB so she came to the ED. She has been getting increasingly SOB with eating, so her appetite and intake are low. Pt denies fever, chest pain, abd pain, n/v/c/d, LE pain or swelling. She has a daily headache when she wakes up, frontal location. This is not new. Pt given steroids, nebs, and Mg in the ED and is feeling a bit improved, but still not at her baseline. states that pt has wheezing at baseline, but "not this bad". Pt had been having home PT/OT, but over the last week had declined upon arrival due to feeling too weak and SOB to participate. Pt has lost about 30 lbs since November. She is to have a c-scope, but it has been cx in the past due to respiratory issues. Pt has been having issues with her Hb. She has been as low as in the 8s with this. She was to see hem/onc on Thursday. Allergies Allergy/AdvReac Type Severity Reaction Status Date / Time No Known Allergies Allergy Verified 05/02/18 16:36 Home Medications Home Medications Medication Instructions Recorded Confirmed Type albuterol sulfate [Proventil HFA] 2 puff INHALATION Q4 PRN 03/07/18 05/02/18 History beclomethasone dipropionate [Qvar 2 puff INHALATION BID 03/07/18 05/02/18 History RediHaler] ferrous sulfate 325 mg PO BID 03/07/18 05/02/18 History ibandronate 150 mg PO MONTHLY 03/07/18 05/02/18 History pantoprazole 40 mg PO QAM 03/07/18 05/02/18 History sertraline 100 mg PO QAM 03/07/18 05/02/18 History sulfamethoxazole-trimethoprim 1 tab PO BID 03/07/18 05/02/18 History tiotropium bromide [Spiriva with 1 cap INHALATION DAILY 03/07/18 05/02/18 History HandiHaler] tramadol 50 mg PO Q4 PRN 03/07/18 05/02/18 History trazodone 50 mg PO HS 03/07/18 05/02/18 History zafirlukast 20 mg PO BID 03/07/18 05/02/18 History moxifloxacin [Avelox] 400 mg PO DAILY 04/26/18 05/02/18 History budesonide-formoterol [Symbicort] 2 puff INHALATION BID 05/02/18 05/02/18 History levalbuterol HCl 1.25 mg INHALATION Q4 PRN 05/02/18 05/02/18 History lorazepam 0.5 mg PO DIRECTED PRN 05/02/18 05/02/18 History prednisone 50 mg PO DAILY 05/02/18 05/02/18 History Past Med/Surg History Medical History On home oxygen therapy 3-4L CONT. Eosinophilic pneumonia Anemia Chronic steroid use GERD (gastroesophageal reflux disease) Spinal stenosis Chronic lung disease (Chronic) Surgical History History of bronchoscopy History of tooth extraction History of colonoscopy Family History Father Heart attack Other No significant family history Social History Current Living Situation: Spouse Feels Safe at Home: Yes Smoking Status: Never smoker Second Hand Exposure: No Hx Alcohol Use: Yes Alcohol type: beer, wine and hard liquor Alcohol Intake Frequency: a few times a week Hx Substance Use: No Beliefs That Will Affect Care: None Preferred Language: Cameroonian Communication Ability: Effective Review of Systems Pertinent positives and negatives reviewed in HPI--all others negative Physical Exam 2 Vital Signs (Past 24 Hours): Last Vital Signs Temp 36.9 C 05/02/18 15:30 Pulse 104 H 05/02/18 17:40 Resp 26 H 05/02/18 17:40 BP 143/81 H 05/02/18 17:29 Pulse Ox 92 05/02/18 17:40 Constitutional: WD/WN, vitals as above Eyes: normal visual jackson by confrontation and + anicteric sclerae Neck: normal visual inspection and trachea midline Respiratory: no respiratory distress Auscultation: + rhonchi and + wheezes Cardiovascular: Rate/Rhythm: regular rate and regular rhythm Gastrointestinal (Abdomen): Inspection/Auscultation: abdomen not distended Percussion/Palpation: abdomen soft; abdomen nontender Musculoskeletal: Head/Neck/Chest: normocephalic and head atraumatic negative for edema, peripheral pulses intact Skin: no rashes, warm and dry Neurologic: awake; not confused Speech / Cognition: normal speech Psychiatric: A+Ox3, euthymic affect Results & Data Diagnostic Findings CXR: neg for PNA Code Status & VTE Plan Code Status Full code VTE Prophylaxis Plan VTE Prophylaxis will be ordered: Yes
[2018-05-02 19:02] LABS: Influenza A virus by PCR Neg for Influ A (Neg); Influenza B virus by PCR Neg for Influ B (Neg)
[2018-05-02 19:03] LABS: Appearance Urine Clear (Clear); Bilirubin Urine Negative (Negative); Blood Urine Negative (Negative); Color Urine Yellow; Glucose Urine UA 2+ (Negative); Ketones Urine Negative (Negative); Leukocyte Esterase Urine Negative (Negative); Nitrite Urine Negative (Negative); Protein Urine Negative (Negative); Specific Gravity Urine 1.014 (1.000-1.030); Urobilinogen Urine Negative (Negative); pH Urine >= 9.0 (4.5-7.5)
[2018-05-02] MEDS ORDERED: ONDANSETRON INJ 2 MG/ML 2 ML VIAL IV PRN (19:13)
[2018-05-02] MEDS ORDERED: ALBUTEROL HFA 8 GM INHALER INH PRN (19:13)
[2018-05-02] MEDS ORDERED: MAGNESIUM HYDROXIDE SUSP 30 ML UDC PO PRN (19:13)
[2018-05-02] MEDS: LEVALBUTEROL HCL 1.25 MG/3 ML NEB INH SCH (21:05)
[2018-05-02] MEDS: BECLOMETHASONE DIP HFA 80 MCG 8.7G INH INH SCH (21:37)
[2018-05-02] MEDS: FERROUS SULFATE 325 MG TAB PO SCH (21:37)
[2018-05-02] MEDS: TRAZODONE HCL 50 MG TAB PO SCH (21:37)
[2018-05-02] MEDS: SULFAMETHOXAZOLE/TRIMETHOPRIM DS 800/160MG TAB PO SCH (21:38)
[2018-05-02] MEDS: methylPREDNISolone 40 MG in SYRINGE 0 ML IV SCH (21:38)
[2018-05-02] MEDS: BUDESONIDE/FORMOTEROL FUMARATE 160/4.5 60 PUFFS/INHALER INH SCH (21:38)
[2018-05-03] MEDS: LEVALBUTEROL HCL 1.25 MG/3 ML NEB INH SCH ×7 (00:36→22:56)
[2018-05-03] MEDS: BUDESONIDE/FORMOTEROL FUMARATE 160/4.5 60 PUFFS/INHALER INH SCH ×2 (07:30→20:42)
[2018-05-03] MEDS: ENOXAPARIN INJ 40 MG/0.4 ML SYR SQ SCH (07:30)
[2018-05-03] MEDS: SULFAMETHOXAZOLE/TRIMETHOPRIM DS 800/160MG TAB PO SCH ×2 (07:30→20:44)
[2018-05-03] MEDS: BECLOMETHASONE DIP HFA 80 MCG 8.7G INH INH SCH ×2 (07:30→20:42)
[2018-05-03] MEDS: TIOTROPIUM BROMIDE 5 PUFF/90 MCG INH INH SCH (07:31)
[2018-05-03] MEDS: PANTOprazole 40 MG TAB PO SCH (07:31)
[2018-05-03] MEDS: SERTRALINE HCL 100 MG TABLET PO SCH (07:32)
[2018-05-03 07:54] LABS: BUN Creatinine Ratio 15.7 (10-20); Creatinine Clr Calc Pharmacy 92.2 ml/min; Est GFR (African American) 119.3; Est GFR (Non-African American) 102.9; Magnesium 1.7 mg/dl (1.8-2.4); Phosphorus 4.4 mg/dl (2.5-4.9); Potassium 4.2 mmol/L (3.5-5.1)
[2018-05-03 07:55] LABS: Hematocrit (blood only) 34.3 % (37-47); Hemoglobin 10.1 g/dL (12.0-16.0); Mean Corpuscular Hemoglobin 29.7 pg (25-34); Mean Corpuscular Hgb Conc 29.4 g/dL (32-36); Mean Corpuscular Volume 100.9 fL (80-100); Mean Platelet Volume 10.1 fL (7.4-10.4); Platelet Count 283 K/uL (130-400); RDW Coefficient of Variation 12.9 % (11.5-14.5); White Blood Count 8.43 K/uL (4.8-10.8)
[2018-05-03 07:56] LABS: Basophils # (auto) 0.01 K/uL (0-0.2); Basophils % (auto) 0.1 %; Immature Granulocytes # (auto) 0.06 K/uL (0.00-0.02); Immature Granulocytes % (auto) 0.7 %; Lymphocytes # (auto) 0.77 K/uL (1.2-3.4); Lymphocytes % (auto) 9.1 %; Monocytes # (auto) 1.15 K/uL (0.11-0.59); Monocytes % (auto) 13.6 %; Neutrophils # (auto) 6.44 K/uL (1.4-6.5); Neutrophils % (auto) 76.5 %
[2018-05-03] MEDS: FERROUS SULFATE 325 MG TAB PO SCH ×2 (09:27→20:43)
[2018-05-03] MEDS: methylPREDNISolone 40 MG in SYRINGE 0 ML IV SCH ×2 (09:27→20:46)
[2018-05-03] MEDS: ACETAMINOPHEN 325 MG TAB PO PRN (10:03)
[2018-05-03] MEDS: LORazepam 0.5 MG TAB PO PRN ×2 (10:15→21:06)
[2018-05-03] MEDS ORDERED: LEVALBUTEROL 0.31MG/3 ML VIAL NEB PRN (11:10)
--- NOTE | 2018-05-03 16:28 | Hospitalist Progress Note ---
Date of Service May 03, 2018 Assessment & Plan (1) Eosinophilic pneumonia: Follows with Dr. 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 Given abx in the ED, but stopped by the admitting attending given her CXR on 05/02 not showing any pneumonia. Flu swab negative on 05/02. On home O2 of 4L, but bumped up to 5L NC currently. - Follow up blood cultures - Continue home inhalers - Continue nebulizer and steroids - Continue Bactrim prophylaxis - Procalcitonin - Pulmonology consult (2) Failure of outpatient treatment: As noted in HPI (3) GERD (gastroesophageal reflux disease): No current issues. - Continue home meds (4) Weight loss: Pt has c-scope planned but has had to be cx in the past due to respiratory issues. (5) Anemia: Baseline hemoglobin is ~9. Elevated on admission to 10.4. - Has appt with hem/onc this Thursday, will need rescheduled (6) DVT prophylaxis: Lovenox Subjective 67yo F w/ chronic lung disease who presents with shortness of breath. Continues to feel shortness of breath with increased work of breathing. Reports no fevers/chills, chest pain, abdominal pain, nausea, or vomiting. Physical Exam 2 Vital Signs (Past 24 Hours): Last Vital Signs Temp 36.8 C 05/03/18 12:26 Pulse 73 05/03/18 12:26 Resp 22 05/03/18 12:26 BP 128/73 05/03/18 12:26 Pulse Ox 93 05/03/18 14:18 Constitutional: WD/WN, vitals as above Eyes: normal visual jackson by confrontation and + anicteric sclerae Neck: normal visual inspection and trachea midline Respiratory: no respiratory distress Auscultation: + rhonchi and + wheezes Cardiovascular: Rate/Rhythm: regular rate and regular rhythm Gastrointestinal (Abdomen): Inspection/Auscultation: abdomen not distended Percussion/Palpation: abdomen soft; abdomen nontender Musculoskeletal: Head/Neck/Chest: normocephalic and head atraumatic Skin: no rashes, warm and dry Neurologic: awake; not confused Speech / Cognition: normal speech Psychiatric: A+Ox3, euthymic affect
[2018-05-03] MEDS ORDERED: VANCOMYCIN CONSULT ACTIVE PRN (17:21)
--- NOTE | 2018-05-03 19:49 | Pulmonary Consultation ---
Date of Consultation May 03, 2018 Assessment & Plan (1) Chronic steroid use: Impression: 1. Mixed obstructive and restrictive lung disease, hyperinflation of the lung is likely related to chronic aspiration. 2. 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 3. 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 4. Chronic hypercapnic respiratory failure. Plan: 1. Obtain video barium swallow. 2. Continue with steroids and increase the dose to every 6 hours. 3. Bronchodilators would be less effective in a patient who has siphon trachea. 4. Unfortunately, it is too late for using monoclonal therapy in patients who have failed or had suboptimal response to steroids in CEP. 5. May seek steroid sparing treatment such as CellCept. 6. Continue oxygen. 7. Address CODE STATUS. Thank you, will follow. History of Present Illness Reason for Consultation: Shortness of breath. Requesting Physician: Dr. Mirza. Attending Physician: Mike Mirza MD History of Present Illness Dear Dr. Mirza: Thank you for your kind referral of Mrs. Birch to pulmonary service. This is 67-year-old female followed by Dr. Harris as an outpatient, has been followed by his office for the past 30 years with a diagnosis of CEP, the patient was treated off and on with the steroids, up until 7 years ago she was started on oxygen. The patient throughout the years, developed severe kyphosis resulted also in difficulty swallowing as well. Patient does have occasional aspiration. The patient exercise capacity is less than 30 feet. 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 She denies any syncopal episodes. No nocturnal symptoms, and no paroxysmal cough or hemoptysis. No increased swelling in her lower extremities. And appears very cachectic. She denies any recent sick contact, constitutional symptoms. The patient was admitted to the hospital with diagnosis of shortness of breath secondary to eosinophilic pneumonitis. The patient did not have any signs of viral syndrome prior to her arrival, no sick contact, no recent travel. 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 No industrial exposure and never worked on a farm. Her family history does not contribute to her current illness. She does have significant GERD. Allergies Allergy/AdvReac Type Severity Reaction Status Date / Time No Known Allergies Allergy Verified 05/02/18 16:36 Home Medications Home Medications Medication Instructions Recorded Confirmed Type albuterol sulfate [Proventil HFA] 2 puff INHALATION Q4 PRN 03/07/18 05/02/18 History beclomethasone dipropionate [Qvar 2 puff INHALATION BID 03/07/18 05/02/18 History RediHaler] ferrous sulfate 325 mg PO BID 03/07/18 05/02/18 History ibandronate 150 mg PO MONTHLY 03/07/18 05/02/18 History pantoprazole 40 mg PO QAM 03/07/18 05/02/18 History sertraline 100 mg PO QAM 03/07/18 05/02/18 History sulfamethoxazole-trimethoprim 1 tab PO BID 03/07/18 05/02/18 History tiotropium bromide [Spiriva with 1 cap INHALATION DAILY 03/07/18 05/02/18 History HandiHaler] tramadol 50 mg PO Q4 PRN 03/07/18 05/02/18 History trazodone 50 mg PO HS 03/07/18 05/02/18 History zafirlukast 20 mg PO BID 03/07/18 05/02/18 History moxifloxacin [Avelox] 400 mg PO DAILY 04/26/18 05/02/18 History budesonide-formoterol [Symbicort] 2 puff INHALATION BID 05/02/18 05/02/18 History levalbuterol HCl 1.25 mg INHALATION Q4 PRN 05/02/18 05/02/18 History lorazepam 0.5 mg PO BID PRN 05/02/18 05/02/18 History prednisone 50 mg PO DAILY 05/02/18 05/02/18 History Patient History Medical History On home oxygen therapy 3-4L CONT. Eosinophilic pneumonia Anemia Chronic steroid use GERD (gastroesophageal reflux disease) Spinal stenosis Chronic lung disease (Chronic) Surgical History History of bronchoscopy History of tooth extraction History of colonoscopy Family History Father Heart attack Other No significant family history Social History marital status: Current Living Situation: Spouse Other Information That Helps Us Care for You: No Feels Safe at Home: Yes Smoking Status: Never smoker Second Hand Exposure: No Hx Alcohol Use: Yes Alcohol type: wine Alcohol Intake Frequency: 0-2 drinks per day Hx Substance Use: No Beliefs That Will Affect Care: None Communication Ability: Effective Review of Systems Review of systems include 14 systems was unremarkable except for the above. Physical Exam 2 Vital Signs (Past 24 Hours): Last Vital Signs Temp 36.5 C 05/03/18 15:00 Pulse 104 H 05/03/18 15:30 Resp 18 05/03/18 15:30 BP 122/48 L 05/03/18 15:00 Pulse Ox 95 05/03/18 15:30 Physical Exam: The patient is cachectic, severe kyphosis, hyperinflated lungs , vital signs however are stable. S1-S2 regular rate and rhythm, bilateral wheezing, abdomen is benign, no edema. Results & Data Laboratory Results No leukocytosis, stable hematocrit and platelets. BUN and creatinine are pretty stable. The patient does have chronic hypercapnic respiratory failure. Diagnostic Findings I have reviewed her previous CAT scan of the chest as well as chest x-rays which showed hyperinflated lungs, severe kyphosis, and tortuous trachea.
[2018-05-03] MEDS: TRAZODONE HCL 50 MG TAB PO SCH (20:43)
[2018-05-04] MEDS: methylPREDNISolone 40 MG in SYRINGE 0 ML IV SCH ×4 (02:47→22:03)
[2018-05-04] MEDS: LEVALBUTEROL HCL 1.25 MG/3 ML NEB INH SCH ×6 (05:51→23:28)
[2018-05-04 08:16] LABS: BUN Creatinine Ratio 15.5 (10-20); Calcium 9.2 mg/dl (8.5-10.1); Creatinine Clr Calc Pharmacy 88.5 ml/min; Est GFR (African American) 117.7; Est GFR (Non-African American) 101.5; Magnesium 1.8 mg/dl (1.8-2.4); Potassium 5.3 mmol/L (3.5-5.1)
[2018-05-04 08:42] LABS: Hematocrit (blood only) 36.9 % (37-47); Hemoglobin 10.5 g/dL (12.0-16.0); Mean Corpuscular Hemoglobin 29.5 pg (25-34); Mean Corpuscular Hgb Conc 28.5 g/dL (32-36); Mean Corpuscular Volume 103.7 fL (80-100); Platelet Count 310 K/uL (130-400); Red Blood Count 3.56 M/uL (4.2-5.4); White Blood Count 12.29 K/uL (4.8-10.8)
[2018-05-04] MEDS: BECLOMETHASONE DIP HFA 80 MCG 8.7G INH INH SCH ×2 (09:22→22:05)
[2018-05-04] MEDS: TIOTROPIUM BROMIDE 5 PUFF/90 MCG INH INH SCH (09:23)
[2018-05-04] MEDS: ENOXAPARIN INJ 40 MG/0.4 ML SYR SQ SCH (09:23)
[2018-05-04] MEDS: BUDESONIDE/FORMOTEROL FUMARATE 160/4.5 60 PUFFS/INHALER INH SCH ×2 (09:23→22:08)
[2018-05-04] MEDS: PANTOprazole 40 MG TAB PO SCH (09:24)
[2018-05-04] MEDS: FERROUS SULFATE 325 MG TAB PO SCH ×2 (09:24→22:04)
[2018-05-04] MEDS: SULFAMETHOXAZOLE/TRIMETHOPRIM DS 800/160MG TAB PO SCH ×2 (09:24→22:05)
[2018-05-04] MEDS: SERTRALINE HCL 100 MG TABLET PO SCH (09:24)
--- NOTE | 2018-05-04 11:41 | Fluoroscopy Report ---
FL video swallow HISTORY: chronic aspiration TECHNIQUE: Video fluoroscopic evaluation of swallowing was performed in the AP and lateral projection s by the speech pathology staff. The patient is fed nectar-thick and thin liquid barium, a barium [place]a [place] wafer, and barium pudding. FLUOROSCOPY TIME: 1.9 minutes. A cine loop submitted. COMPARISON STUDY: None. FINDINGS: There is normal hyoid excursion and epiglottic deflection. A few episodes of penetration wi th the thin liquid barium. However, no aspiration identified during the examination. Moderate esophag eal dysmotility. IMPRESSION: 1. No aspiration identified. Moderate esophageal dysmotility. 2. Please see the speech pathologist report for detailed findings and recommendations. Electronically signed by: Elmer Ramos M.D. 05/04/2018 11:39 AM
--- NOTE | 2018-05-04 14:05 | Hospitalist Progress Note ---
Date of Service May 04, 2018 Assessment & Plan (1) Eosinophilic pneumonia: Follows with Dr. 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 Given abx in the ED, but stopped by the admitting attending given her CXR on 05/02 not showing any pneumonia. Flu swab negative on 05/02. Procalcitonin on 05/03 was negative. On home O2 of 4L, but bumped up to 5L NC currently. - Follow up blood cultures - Had contaminant on 05/02, repeats on 05/04 currently negative - Continue home inhalers - Continue nebulizer and steroids - Continue Bactrim prophylaxis - Pulmonology consult - Appreciate recs (2) Tremor: Likely from nebulizers vs. steroids. - Ativan PRN - Discuss with Dr. Bella (3) GERD (gastroesophageal reflux disease): No current issues. - Continue home meds (4) Anemia: Baseline hemoglobin is ~9. Elevated on admission to 10.4. - Has appt with hem/onc this Thursday, will need rescheduled (5) DVT prophylaxis: Davinax Subjective 67yo F w/ chronic lung disease who presents with shortness of breath. Continues to feel shortness of breath with increased work of breathing. She also notes tremor in the chest wall that she reports is worse today. She cannot tell if this is from nebulizers or steroids, as she is not sure what makes it worse. Reports no fevers/chills, chest pain, abdominal pain, nausea, or vomiting. Physical Exam 2 Vital Signs (Past 24 Hours): Last Vital Signs Temp 36.8 C 05/04/18 07:14 Pulse 99 H 05/04/18 07:14 Resp 20 05/04/18 07:14 BP 120/72 05/04/18 07:14 Pulse Ox 99 05/04/18 07:14 Constitutional: WD/WN, vitals as above Eyes: normal visual jackson by confrontation and + anicteric sclerae Neck: normal visual inspection and trachea midline Respiratory: + labored breathing; no respiratory distress Auscultation: + rhonchi and + wheezes Cardiovascular: Rate/Rhythm: regular rate and regular rhythm Chest (Breasts): Additional Comments: Tremor of chest wall Gastrointestinal (Abdomen): Inspection/Auscultation: abdomen not distended Percussion/Palpation: abdomen soft; abdomen nontender Musculoskeletal: Head/Neck/Chest: normocephalic and head atraumatic Skin: no rashes, warm and dry Neurologic: awake; not confused Speech / Cognition: normal speech Psychiatric: A+Ox3, euthymic affect
--- NOTE | 2018-05-04 20:19 | Pulmonology Progress Note ---
Date of Service May 04, 2018 Assessment & Plan (1) Chronic steroid use: Impression: 1. Mixed obstructive and restrictive lung disease, hyperinflation of the lung is likely related to chronic aspiration. 2. 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 3. 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 4. Chronic hypercapnic respiratory failure. Plan: 1. Esophageal dysmotility noted on the video barium swallow, GI consult will be helpful. 2. Continue current steroids dose, will change her to prednisone in the morning. 3. Bronchodilators would be less effective in a patient who has siphon trachea. 4. Apparently the patient refused steroid sparing treatment in the past, such as CellCept or monoclonal therapy. 5. BiPAP at night. 6. Continue oxygen. 7. Address CODE STATUS. Thank you, will follow. Subjective No significant improvement, continued to have wheezing shortness of breath, cough without sputum production, no chest pain was reported. Physical Exam 2 Vital Signs (Past 24 Hours): Last Vital Signs Temp 37.8 C H 05/04/18 15:10 Pulse 105 H 05/04/18 19:20 Resp 20 05/04/18 19:20 BP 116/68 05/04/18 15:10 Pulse Ox 95 05/04/18 19:20 Physical Exam: Chronically ill-appearing, O2 sat 95% on 5 L, no fever, S1-S2 regular rate and rhythm, abdomen is benign, no edema. Severe kyphosis. Results & Data Laboratory Results Labs were reviewed. 12 hematocrit of 36 and platelets of 310. Bicarb is 41. All within her baseline. Diagnostic Findings Modified barium swallow did not show aspiration but showed esophageal dysmotility.
[2018-05-04] MEDS: TRAZODONE HCL 50 MG TAB PO SCH (22:03)
[2018-05-04] MEDS: LORazepam 0.5 MG TAB PO PRN (22:04)
[2018-05-04] MEDS: guaiFENesin 600 MG TABCR PO SCH (23:02)
[2018-05-05] MEDS: methylPREDNISolone 40 MG in SYRINGE 0 ML IV SCH ×4 (02:29→20:47)
[2018-05-05] MEDS: LEVALBUTEROL HCL 1.25 MG/3 ML NEB INH SCH ×6 (03:34→23:05)
[2018-05-05] MEDS: TIOTROPIUM BROMIDE 5 PUFF/90 MCG INH INH SCH (07:37)
[2018-05-05] MEDS: guaiFENesin 600 MG TABCR PO SCH ×2 (07:37→20:48)
[2018-05-05] MEDS: SULFAMETHOXAZOLE/TRIMETHOPRIM DS 800/160MG TAB PO SCH ×2 (07:37→20:48)
[2018-05-05] MEDS: BECLOMETHASONE DIP HFA 80 MCG 8.7G INH INH SCH ×2 (07:38→20:50)
[2018-05-05] MEDS: ENOXAPARIN INJ 40 MG/0.4 ML SYR SQ SCH (07:38)
[2018-05-05] MEDS: BUDESONIDE/FORMOTEROL FUMARATE 160/4.5 60 PUFFS/INHALER INH SCH ×2 (07:38→20:49)
[2018-05-05] MEDS: PANTOprazole 40 MG TAB PO SCH (07:38)
[2018-05-05] MEDS: SERTRALINE HCL 100 MG TABLET PO SCH (07:38)
[2018-05-05] MEDS: ACETAMINOPHEN 325 MG TAB PO PRN (07:39)
[2018-05-05] MEDS: FERROUS SULFATE 325 MG TAB PO SCH ×2 (07:39→20:48)
[2018-05-05 08:55] LABS: Basophils # (auto) 0.01 K/uL (0-0.2); Basophils % (auto) 0.1 %; Hematocrit (blood only) 35.1 % (37-47); Hemoglobin 9.9 g/dL (12.0-16.0); Immature Granulocytes # (auto) 0.14 K/uL (0.00-0.02); Immature Granulocytes % (auto) 1.1 %; Lymphocytes # (auto) 0.87 K/uL (1.2-3.4); Lymphocytes % (auto) 7.1 %; Mean Corpuscular Hemoglobin 29.6 pg (25-34); Mean Corpuscular Hgb Conc 28.2 g/dL (32-36); Mean Corpuscular Volume 104.8 fL (80-100); Monocytes # (auto) 0.76 K/uL (0.11-0.59); Monocytes % (auto) 6.2 %; Neutrophils # (auto) 10.56 K/uL (1.4-6.5); Neutrophils % (auto) 85.5 %; Platelet Count 306 K/uL (130-400); RDW Coefficient of Variation 12.7 % (11.5-14.5); RDW Standard Deviation 48.3 fL (36.4-46.3); Red Blood Count 3.35 M/uL (4.2-5.4); White Blood Count 12.34 K/uL (4.8-10.8)
[2018-05-05 09:18] LABS: BUN Creatinine Ratio 23.8 (10-20); Creatinine Clr Calc Pharmacy 103.2 ml/min; Est GFR (African American) 123.8; Est GFR (Non-African American) 106.8; Potassium 4.6 mmol/L (3.5-5.1)
[2018-05-05] MEDS ORDERED: PIPERACILL/TAZOBAC CONSULT ACTIVE PRN (11:14)
[2018-05-05] MEDS ORDERED: PIPERACILLIN/TAZOBACTAM 3.375 GM in DEXTROSE 5% 100 ML IV ONE (11:30)
[2018-05-05 12:01] LABS: Base Excess ABG 17.5 mEq/L (-9-1.8); HCO3 ABG 46 mmol/L (19-24); Oxygen Saturation ABG 93.1 % (90-95); PCO2 ABG 82 mmHg (35-46); PO2 ABG 72 mm/Hg (80-95); pH ABG 7.37 (7.35-7.45)
[2018-05-05 12:04] LABS: Allen Test Pos (Pos)
[2018-05-05] MEDS ORDERED: IOVERSOL 100ml IV PRN (12:13)
--- NOTE | 2018-05-05 12:39 | CT Scan Report ---
CHEST CTA for PULMONARY ARTERIES CT DOSE: 186.04 mGy.cm HISTORY: Short of breath. Concern for pulmonary embolus vs. pneumonia TECHNIQUE: Multiaxial CT images of the chest were performed following the intravenous administration of contrast to evaluate the pulmonary arteries. Maximal intensity projection images were also obtaine d. A dose lowering technique was utilized adhering to the principles of ALARA. COMPARISON STUDY: Chest CTA 12/03/2017. FINDINGS: Mild to moderate wedge-shaped compression deformities within the mid thoracic spine and sev ere kyphoscoliosis remain unchanged. Multiple old, healed bilateral rib fractures. No acute rib fract ures. The visualized liver, spleen, and adrenal glands are unremarkable. The heart remains mildly enl arged. No pleural or pericardial effusions. Small fat-containing right-sided Bochdalek hernia. No med iastinal or hilar lymphadenopathy. Stable mild aneurysmal dilatation of the ascending thoracic aorta measuring up to 4 cm. No evidence for an aortic dissection. The main pulmonary artery is dilated up t o 3.6 cm consistent with pulmonary arterial hypertension. There is a filling defect seen within the s ubsegmental branches of the right lower lobe best seen on images 75 through 80 consistent with a pulm onary embolus. Questionable filling defect within the subsegmental branches of the lingula appears to be secondary to motion artifact. The remaining pulmonary arteries are patent. No pneumothorax. Small amount of mucoid material within the bilateral mainstem bronchi. A few small scattered groundglass a nd nodular densities at the the lung bases have slightly progressed. Biapical pleural-parenchymal nod ularity remains unchanged and is likely chronic. There is near complete collapse of the right middle lobe, unchanged. The right middle lobe bronchus is opacified/occluded. IMPRESSION: 1. There is a pulmonary embolus seen within a subsegmental branch of the right lower lobe. 2. There are are a few small scattered groundglass and nodular densities at the lung bases which have slightly progressed. There is near complete collapse of the right middle lobe with an opacified/occl uded right middle lobe bronchus. There is also a small amount of mucoid material within the bilateral mainstem bronchi. Therefore, these findings could represent an aspiration pneumonitis. Follow-up bro nchoscopy recommended to evaluate the right middle lobe bronchus and to exclude the less likely possi bility of an underlying lesion. 3. Additional findings as described above. Electronically signed by: Elmer Ramos M.D. 05/05/2018 12:37 PM
--- NOTE | 2018-05-05 14:07 | Hospitalist Progress Note ---
Date of Service May 05, 2018 Assessment & Plan (1) Eosinophilic pneumonia: Follows with Dr. 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 Given abx in the ED, but stopped by the admitting attending given her CXR on 05/02 not showing any pneumonia. Flu swab negative on 05/02. Procalcitonin on 05/03 was negative. On home O2 of 4L, but bumped up to 5L NC currently. - Follow up blood cultures - Had contaminant on 05/02, repeats on 05/04 currently negative - Continue home inhalers - Continue nebulizer and steroids - Continue Bactrim prophylaxis - Pulmonology consult - Appreciate recs - Sputum cx from 05/04 growing Gram(-) rods - Started Zosyn on 05/06 - CTA chest on 05/06 indicates a mucus plug of RML. Pulm considering bronch, but have concerns about difficult extubation. (2) Tremor: Likely from nebulizers vs. steroids. - Pulm felt it was due to muscle wasting from her respiratory failure - Ativan PRN (3) GERD (gastroesophageal reflux disease): No current issues. - Continue home meds (4) Anemia: Baseline hemoglobin is ~9. Elevated on admission to 10.4. - Has appt with hem/onc this Thursday, will need rescheduled (5) DVT prophylaxis: Lovenox Subjective 67yo F w/ chronic lung disease who presents with shortness of breath. Was doing ok this morning, but had acute decompensation. Feels shortness of breath with increased work of breathing. Reports no fevers/chills, chest pain, abdominal pain, nausea, or vomiting. Physical Exam 2 Vital Signs (Past 24 Hours): Last Vital Signs Temp 36.7 C 05/05/18 13:01 Pulse 107 H 05/05/18 13:01 Resp 24 05/05/18 13:01 BP 161/93 H 05/05/18 13:01 Pulse Ox 95 05/05/18 13:01 Constitutional: WD/WN, vitals as above Eyes: normal visual jackson by confrontation and + anicteric sclerae Neck: normal visual inspection and trachea midline Respiratory: + labored breathing, + abnormal respiratory pattern and + tachypneic; no respiratory distress and + not able to speak in complete sentence Auscultation: + diminished lung sounds, + rhonchi and + wheezes Cardiovascular: Rate/Rhythm: regular rhythm and + tachycardic Gastrointestinal (Abdomen): Inspection/Auscultation: abdomen not distended Percussion/Palpation: abdomen soft; abdomen nontender Musculoskeletal: Head/Neck/Chest: normocephalic and head atraumatic Skin: no rashes, warm and dry Neurologic: awake; not confused Speech / Cognition: normal speech Psychiatric: A+Ox3, euthymic affect
[2018-05-05] MEDS: PIPERACILLIN/TAZOBACTAM 3.375 GM in DEXTROSE 5% 100 ML IV SCH (17:38)
[2018-05-05] MEDS: TRAZODONE HCL 50 MG TAB PO SCH (20:47)
--- NOTE | 2018-05-05 20:57 | Pulmonology Progress Note ---
Date of Service May 05, 2018 Assessment & Plan (1) Chronic steroid use: Impression: 1. Mixed obstructive and restrictive lung disease, hyperinflation of the lung is likely related to chronic aspiration. 2. 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 3. 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 4. Chronic hypercapnic respiratory failure. Tolerated the BiPAP. Plan: 1. No evidence of PE on the CAT scan, reviewed personally. 2. Significant mucoid impaction, the patient can use incentive spirometry, cannot tolerate sedation for bronchoscopy. 3. Continue with bronchodilators as tolerated. 4. Apparently the patient refused steroid sparing treatment in the past, such as CellCept or monoclonal therapy. 5. BiPAP at night. Tolerated well for 8 hours according to the patient, she would benefit from home sleep study once discharged. 6. Continue oxygen. 7. Address CODE STATUS. 8. Continue with heparin subcu for DVT prophylaxis. 9. Patient can be transferred back to regular floor. 10. Physical therapy if doable. Thank you, will follow. Subjective The patient's respiratory status has been the same, no change from yesterday, the patient was transferred to the ICU due to concern about PE, CAT scan of the chest was done and read as a small PE in the right lower lobe, however mucoid impaction was noted bilaterally. Physical Exam 2 Vital Signs (Past 24 Hours): Last Vital Signs Temp 36.7 C 05/05/18 20:01 Pulse 104 H 05/05/18 20:01 Resp 27 H 05/05/18 20:01 BP 150/85 H 05/05/18 20:01 Pulse Ox 97 05/05/18 20:01 Physical Exam: Vital signs are stable, S1-S2 regular rate and rhythm, her O2 saturation remains at 93% on 3 L. Bilateral rhonchi, abdomen is benign, severe kyphosis. Cachexia in the periphery. Results & Data Laboratory Results Labs were reviewed personally, ABG showed 7.3 7/82/72/46. Diagnostic Findings CAT scan of the chest read as small PE in the right lower lobe, I did not appreciate a, mucoid impaction are present throughout the lungs.
[2018-05-05] MEDS: LORazepam 0.5 MG TAB PO PRN (21:58)
[2018-05-06] MEDS: TRAMADOL HCL 50 MG TABLET PO PRN ×2 (00:29→07:48)
[2018-05-06] MEDS: PIPERACILLIN/TAZOBACTAM 3.375 GM in DEXTROSE 5% 100 ML IV SCH ×3 (02:06→19:23)
[2018-05-06] MEDS: methylPREDNISolone 40 MG in SYRINGE 0 ML IV SCH ×3 (02:06→19:22)
[2018-05-06] MEDS: LEVALBUTEROL HCL 1.25 MG/3 ML NEB INH SCH ×3 (03:58→15:02)
[2018-05-06 04:58] LABS: Hematocrit (blood only) 35.1 % (37-47); Mean Corpuscular Hemoglobin 29.7 pg (25-34); Mean Corpuscular Hgb Conc 28.5 g/dL (32-36); Mean Corpuscular Volume 104.2 fL (80-100); Mean Platelet Volume 10.4 fL (7.4-10.4); Platelet Count 321 K/uL (130-400); RDW Coefficient of Variation 12.8 % (11.5-14.5); RDW Standard Deviation 48.3 fL (36.4-46.3); Red Blood Count 3.37 M/uL (4.2-5.4); White Blood Count 14.34 K/uL (4.8-10.8)
[2018-05-06 05:58] LABS: BUN Creatinine Ratio 23.8 (10-20); Calcium 8.8 mg/dl (8.5-10.1); Creatinine Clr Calc Pharmacy 120.4 ml/min; Est GFR (African American) 130.2; Est GFR (Non-African American) 112.4; Magnesium 1.5 mg/dl (1.8-2.4); Potassium 4.5 mmol/L (3.5-5.1)
[2018-05-06] MEDS: ENOXAPARIN INJ 40 MG/0.4 ML SYR SQ SCH (07:49)
[2018-05-06] MEDS: FERROUS SULFATE 325 MG TAB PO SCH (07:49)
[2018-05-06] MEDS: guaiFENesin 600 MG TABCR PO SCH ×2 (07:50→21:30)
[2018-05-06] MEDS: SERTRALINE HCL 100 MG TABLET PO SCH (07:50)
[2018-05-06] MEDS: PANTOprazole 40 MG TAB PO SCH (07:50)
[2018-05-06] MEDS: BECLOMETHASONE DIP HFA 80 MCG 8.7G INH INH SCH ×2 (07:51→21:30)
[2018-05-06] MEDS: BUDESONIDE/FORMOTEROL FUMARATE 160/4.5 60 PUFFS/INHALER INH SCH ×2 (07:51→21:30)
[2018-05-06] MEDS: TIOTROPIUM BROMIDE 5 PUFF/90 MCG INH INH SCH (07:51)
[2018-05-06] MEDS: SULFAMETHOXAZOLE/TRIMETHOPRIM DS 800/160MG TAB PO SCH (07:51)
[2018-05-06] MEDS: ACETAMINOPHEN 325 MG TAB PO PRN ×2 (08:46→23:47)
--- NOTE | 2018-05-06 13:48 | Hospitalist Progress Note ---
Date of Service May 06, 2018 Assessment & Plan (1) Eosinophilic pneumonia: Follows with Dr. 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 CXR on 05/02 not showing any pneumonia. Flu swab negative on 05/02. Procalcitonin on 05/03 was negative. On home O2 of 4L, but bumped up to 5L NC currently. - Follow up blood cultures - Had contaminant on 05/02, repeats on 05/04 currently negative - Continue home inhalers, nebulizers, and steroids - Continue Bactrim prophylaxis - Pulmonology consult - Appreciate recs - Sputum cx from 05/04 growing Gram(-) rods - Started Zosyn on 05/06 - CTA chest on 05/06 indicated a mucus plug of RML. Pulm considered bronch, but had concerns about difficult extubation. Currently slowly improving. - Transfer out of ICU (2) Tremor: Likely from nebulizers vs. steroids. - Pulm felt it was due to muscle wasting from her respiratory failure - Ativan PRN (3) GERD (gastroesophageal reflux disease): No current issues. - Continue home meds (4) Anemia: Baseline hemoglobin is ~9. Elevated on admission to 10.4. - Has appt with hem/onc this Thursday, will need rescheduled (5) DVT prophylaxis: Lovenox Subjective 67yo F w/ chronic lung disease who presents with shortness of breath. Better this afternoon compared to yesterday. Working with RT to get up mucus secretions without bronch. Reports no fevers/chills, chest pain, abdominal pain , nausea, or vomiting. Physical Exam 2 Vital Signs (Past 24 Hours): Last Vital Signs Temp 36.7 C 05/06/18 12:00 Pulse 112 H 05/06/18 12:00 Resp 24 05/06/18 13:02 BP 124/86 05/06/18 13:02 Pulse Ox 92 05/06/18 13:02 Constitutional: WD/WN, vitals as above Eyes: normal visual jackson by confrontation and + anicteric sclerae Neck: normal visual inspection and trachea midline Respiratory: + labored breathing, + abnormal respiratory pattern and + tachypneic; + not able to speak in complete sentence Auscultation: + diminished lung sounds and + rhonchi; no wheezes Cardiovascular: Rate/Rhythm: regular rate, regular rhythm and + tachycardic Gastrointestinal (Abdomen): Inspection/Auscultation: abdomen not distended Percussion/Palpation: abdomen soft; abdomen nontender Musculoskeletal: Head/Neck/Chest: normocephalic and head atraumatic Skin: no rashes, warm and dry Neurologic: awake; not confused Speech / Cognition: normal speech Psychiatric: A+Ox3, euthymic affect
[2018-05-06] MEDS: MAGNESIUM OXIDE 400 MG TAB PO SCH ×2 (14:28→21:48)
--- NOTE | 2018-05-06 15:36 | Critical Care Progress Note ---
Date of Service May 06, 2018 Assessment & Plan (1) Chronic steroid use: Impression: 1. Mixed obstructive and restrictive lung disease, hyperinflation of the lung is likely related to chronic aspiration. 2. 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 3. 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 4. Chronic hypercapnic respiratory failure. Tolerated the BiPAP. Plan: 1. No evidence of PE on the CAT scan, reviewed personally. 2. Significant mucoid impaction, the patient can use incentive spirometry. 3. Continue with bronchodilators as tolerated. 4. The patient is not a candidate for bronchoscopy due to the risk of sedation. 5. Discontinue the BiPAP at night, patient is intolerant to it. 6. Continue oxygen at 5 L/min.. 7. Address CODE STATUS. 8. Continue with heparin subcu for DVT prophylaxis. 9. Patient can be transferred back to regular floor. 10. Physical therapy daily. 11. Replace magnesium. 12. Change Solu-Medrol to 40 mg every 12 hours. 13. Be careful with benzodiazepines. Discussed with Dr. Mirza, appreciate his acceptance of this case to regular floor. Thank you, will follow. Subjective The patient slept with the BiPAP last night but she says she could not tolerate very well, she does not feel comfortable with a large face mask over her face. Her respiratory status remains status quo. She continued to have shortness of breath. No chest pain was reported. She is tolerating oral intake and tolerated to be out of the bed in the chair and ambulatory around the chair itself. Physical Exam 2 Vital Signs (Past 24 Hours): Last Vital Signs Temp 36.7 C 05/06/18 12:00 Pulse 108 H 05/06/18 14:10 Resp 18 05/06/18 14:10 BP 157/87 H 05/06/18 14:00 Pulse Ox 93 05/06/18 14:10 Physical Exam: Her vital signs are stable except for blood pressure slightly elevated, O2 sat 93% on 5 L nasal cannula which is her baseline. S1-S2, scattered rhonchi, kyphosis, no edema, cachexia. Results & Data Laboratory Results Labs showed white count of 14,000, hematocrit of 35, platelets of 321. CO2 of 48. BUN and creatinine 9 and 0.36. Magnesium is 1.5. Diagnostic Findings No new imaging,
[2018-05-06] MEDS: TRAZODONE HCL 50 MG TAB PO SCH (21:48)
[2018-05-06] MEDS: LORazepam 0.5 MG TAB PO PRN (23:47)
[2018-05-07] MEDS: PIPERACILLIN/TAZOBACTAM 3.375 GM in DEXTROSE 5% 100 ML IV SCH ×3 (01:53→18:58)
[2018-05-07] MEDS: LEVALBUTEROL HCL 1.25 MG/3 ML NEB INH SCH ×4 (02:06→20:07)
[2018-05-07] MEDS: methylPREDNISolone 40 MG in SYRINGE 0 ML IV SCH ×2 (06:26→18:53)
[2018-05-07] MEDS: BECLOMETHASONE DIP HFA 80 MCG 8.7G INH INH SCH ×2 (07:21→20:57)
[2018-05-07] MEDS: ACETAMINOPHEN 325 MG TAB PO PRN (07:23)
[2018-05-07] MEDS: guaiFENesin 600 MG TABCR PO SCH ×2 (07:24→20:58)
[2018-05-07] MEDS: MAGNESIUM OXIDE 400 MG TAB PO SCH ×2 (07:24→20:58)
[2018-05-07] MEDS: BUDESONIDE/FORMOTEROL FUMARATE 160/4.5 60 PUFFS/INHALER INH SCH ×2 (07:24→20:58)
[2018-05-07] MEDS: TIOTROPIUM BROMIDE 5 PUFF/90 MCG INH INH SCH (07:24)
[2018-05-07] MEDS: ENOXAPARIN INJ 40 MG/0.4 ML SYR SQ SCH (08:57)
[2018-05-07] MEDS: SERTRALINE HCL 100 MG TABLET PO SCH (08:57)
[2018-05-07] MEDS: PANTOprazole 40 MG TAB PO SCH (08:57)
[2018-05-07 09:30] LABS: Hematocrit (blood only) 36.6 % (37-47); Hemoglobin 10.6 g/dL (12.0-16.0); Mean Corpuscular Hemoglobin 30.8 pg (25-34); Mean Corpuscular Volume 106.4 fL (80-100); Mean Platelet Volume 9.6 fL (7.4-10.4); Platelet Count 299 K/uL (130-400); RDW Coefficient of Variation 12.5 % (11.5-14.5); RDW Standard Deviation 48.6 fL (36.4-46.3); Red Blood Count 3.44 M/uL (4.2-5.4); White Blood Count 19.32 K/uL (4.8-10.8)
[2018-05-07 09:47] LABS: BUN Creatinine Ratio 29.4 (10-20); Calcium 8.9 mg/dl (8.5-10.1); Creatinine Clr Calc Pharmacy 105.3 ml/min; Est GFR (African American) 129.1; Est GFR (Non-African American) 111.4; Magnesium 1.6 mg/dl (1.8-2.4); Potassium 4.3 mmol/L (3.5-5.1)
[2018-05-07] MEDS: SULFAMETHOXAZOLE/TRIMETHOPRIM DS 800/160MG TAB PO SCH (13:34)
--- NOTE | 2018-05-07 14:13 | Hospitalist Progress Note ---
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 CXR on 05/02 not showing any pneumonia. Flu swab negative on 05/02. Procalcitonin on 05/03 was negative. On home O2 of 4L, but bumped up to 5L NC currently. CTA chest on 05/05 indicated a mucus plug of RML. Pulm considered bronch, but had concerns about difficult extubation. Also showed PE, but Dr. Bella felt this was an over-read, and we did not start therapeutic anticoagulation. - Continue home inhalers, nebulizers, and steroids - Continue Bactrim prophylaxis 3x/wk - Pulmonology consult - Appreciate recs - Sputum cx from 05/04 growing Pseudomonas - Started Zosyn on 05/06 - Possibly colonization as she had no fever and HR, RR, & white count could all be confounded due to bad lungs exacerbation and steroids; however, given her acute decline on 05/05, I started it anyhow. - Currently with very slow improvement. (2) Tremor: Reported chest wall tremor first several days of admission. Likely from nebulizers vs. steroids. Pulm felt it was due to muscle wasting from her respiratory failure. Had largely resolved by 05/07. - Ativan PRN (3) GERD (gastroesophageal reflux disease): No current issues. - Continue home meds (4) Anemia: Baseline hemoglobin is ~9. Elevated on admission to 10.4. - Has appt with hem/onc this Thursday, will need rescheduled (5) DVT prophylaxis: Lovenox Subjective 67yo F w/ chronic lung disease who presents with shortness of breath. No major change. Per patient, had episode of hypoxemia getting up from bed. Reports no fevers/chills, chest pain, abdominal pain, nausea, or vomiting. Physical Exam 2 Vital Signs (Past 24 Hours): Last Vital Signs Temp 36.5 C 05/07/18 11:11 Pulse 104 H 05/07/18 11:11 Resp 20 05/07/18 11:11 BP 154/73 H 05/07/18 11:11 Pulse Ox 90 05/07/18 11:11 Constitutional: WD/WN, vitals as above Eyes: normal visual jackson by confrontation and + anicteric sclerae Neck: normal visual inspection and trachea midline Respiratory: + labored breathing, + abnormal respiratory pattern and + tachypneic; + not able to speak in complete sentence Auscultation: + diminished lung sounds and + rhonchi; no wheezes Cardiovascular: Rate/Rhythm: regular rate, regular rhythm and + tachycardic Gastrointestinal (Abdomen): Inspection/Auscultation: abdomen not distended Percussion/Palpation: abdomen soft; abdomen nontender Musculoskeletal: Head/Neck/Chest: normocephalic and head atraumatic Skin: no rashes, warm and dry Neurologic: awake; not confused Speech / Cognition: normal speech Psychiatric: A+Ox3, euthymic affect
[2018-05-07] MEDS: MAGNESIUM SULFATE / D5W 1 GM/100 ML BAG IV SCH ×2 (15:30→16:59)
[2018-05-07] MEDS: TRAZODONE HCL 50 MG TAB PO SCH (20:58)
--- NOTE | 2018-05-07 21:17 | Pulmonology Progress Note ---
Date of Service May 07, 2018 Assessment & Plan (1) Chronic steroid use: Impression: 1. Mixed obstructive and restrictive lung disease, hyperinflation of the lung is likely related to chronic aspiration. 2. 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 3. 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 4. Chronic hypercapnic respiratory failure. Tolerated the BiPAP. Plan: 1. Change steroids to prednisone p.o. 50 mg daily for 5 days then taper by 10 mg every other day to her baseline dose. 2. Not a candidate for bronchoscopy for mucoid impaction. Continue with incentive spirometry. 3. Continue with bronchodilators as tolerated. 4. Ambulate the patient as possible. 5. Could not tolerate BiPAP. 6. Continue oxygen at 5 L/min.. 7. Address CODE STATUS. 8. Continue with heparin subcu for DVT prophylaxis. 9. Discharge patient to inpatient pulmonary rehab. Discussed with the patient it seems more ideal than outpatient rehab. 10. Avoid strong sedatives. Thank you, will follow as needed. Subjective The patient continued to be clinically stable, within her baseline, she continued to have shortness of breath with movement, she has occasional cough, difficulty raising her sputum despite all the first 4 pulmonary toilet assist. Physical Exam 2 Vital Signs (Past 24 Hours): Last Vital Signs Temp 36.9 C 05/07/18 19:22 Pulse 97 H 05/07/18 21:06 Resp 18 05/07/18 20:08 BP 176/77 H 05/07/18 21:06 Pulse Ox 90 05/07/18 20:08 Physical Exam: Vital signs are stable, S1-S2 regular rate and rhythm, O2 sat is 90% on 5 L. Lungs with bilateral scattered rhonchi, severe kyphosis, abdomen is benign, no edema in the periphery. Neurologically she is intact except for right facial droop. Which is chronic. Results & Data Laboratory Results Labs showed leukocytosis, bicarb is 49. Diagnostic Findings No new imaging.
[2018-05-08] MEDS: LEVALBUTEROL HCL 1.25 MG/3 ML NEB INH SCH ×5 (02:04→19:42)
[2018-05-08] MEDS: LORazepam 0.5 MG TAB PO PRN ×2 (02:11→21:25)
[2018-05-08] MEDS: PIPERACILLIN/TAZOBACTAM 3.375 GM in DEXTROSE 5% 100 ML IV SCH ×3 (02:11→18:05)
[2018-05-08] MEDS: predniSONE 50 MG TAB PO SCH (08:10)
[2018-05-08] MEDS: ACETAMINOPHEN 325 MG TAB PO PRN (08:10)
[2018-05-08] MEDS: PANTOprazole 40 MG TAB PO SCH (08:11)
[2018-05-08] MEDS: BECLOMETHASONE DIP HFA 80 MCG 8.7G INH INH SCH ×2 (08:11→21:10)
[2018-05-08] MEDS: ENOXAPARIN INJ 40 MG/0.4 ML SYR SQ SCH (08:11)
[2018-05-08] MEDS: guaiFENesin 600 MG TABCR PO SCH ×2 (08:11→21:08)
[2018-05-08] MEDS: MAGNESIUM OXIDE 400 MG TAB PO SCH ×2 (08:11→21:09)
[2018-05-08] MEDS: BUDESONIDE/FORMOTEROL FUMARATE 160/4.5 60 PUFFS/INHALER INH SCH ×2 (08:12→21:09)
[2018-05-08] MEDS: SERTRALINE HCL 100 MG TABLET PO SCH (08:12)
[2018-05-08 08:29] LABS: Hematocrit (blood only) 37.8 % (37-47); Hemoglobin 10.7 g/dL (12.0-16.0); Mean Corpuscular Hemoglobin 29.8 pg (25-34); Mean Corpuscular Hgb Conc 28.3 g/dL (32-36); Mean Corpuscular Volume 105.3 fL (80-100); Mean Platelet Volume 10.1 fL (7.4-10.4); Platelet Count 331 K/uL (130-400); RDW Coefficient of Variation 12.7 % (11.5-14.5); RDW Standard Deviation 48.2 fL (36.4-46.3); Red Blood Count 3.59 M/uL (4.2-5.4)
[2018-05-08 08:45] LABS: BUN Creatinine Ratio 19.6 (10-20); Calcium 8.8 mg/dl (8.5-10.1); Creatinine Clr Calc Pharmacy 99.4 ml/min; Est GFR (African American) 125.8; Est GFR (Non-African American) 108.5; Magnesium 2.1 mg/dl (1.8-2.4)
[2018-05-08] MEDS: TIOTROPIUM BROMIDE 5 PUFF/90 MCG INH INH SCH (08:57)
--- NOTE | 2018-05-08 15:41 | Hospitalist Progress Note ---
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 CXR on 05/02 not showing any pneumonia. Flu swab negative on 05/02. Procalcitonin on 05/03 was negative. On home O2 of 4L, but bumped up to 5L NC currently. CTA chest on 05/05 indicated a mucus plug of RML. Pulm considered bronch, but had concerns about difficult extubation. Also showed PE, but Dr. Bella felt this was an over-read, and we did not start therapeutic anticoagulation. - Continue home inhalers, nebulizers, and steroids - Continue Bactrim prophylaxis 3x/wk - Pulmonology consult - Appreciate recs - Sputum cx from 05/04 growing Pseudomonas - Started Zosyn on 05/06 - Possibly colonization as she had no fever and HR, RR, & white count could all be confounded due to bad lungs exacerbation and steroids; however, given her acute decline on 05/05, I started it anyhow. - Currently with very slow improvement. - Discussed with Dr. Bella who feels she would benefit from inpatient rehab (2) Tremor: Reported chest wall tremor first several days of admission. Likely from nebulizers vs. steroids. Pulm felt it was due to muscle wasting from her respiratory failure. Had largely resolved by 05/07. - Ativan PRN (3) GERD (gastroesophageal reflux disease): No current issues. - Continue home meds (4) Anemia: Baseline hemoglobin is ~9. Elevated on admission to 10.4. - Has appt with hem/onc this Thursday, will need rescheduled (5) DVT prophylaxis: Lovenox Subjective 67yo F w/ chronic lung disease who presents with shortness of breath. Slight improvement today. Reports no fevers/chills, chest pain, abdominal pain, nausea, or vomiting. Physical Exam 2 Vital Signs (Past 24 Hours): Last Vital Signs Temp 37 C 05/08/18 14:49 Pulse 104 H 05/08/18 14:49 Resp 18 05/08/18 14:49 BP 145/83 H 05/08/18 14:49 Pulse Ox 98 05/08/18 14:49 Constitutional: WD/WN, vitals as above Eyes: normal visual jackson by confrontation and + anicteric sclerae Neck: normal visual inspection and trachea midline Respiratory: + labored breathing and + abnormal respiratory pattern; + not able to speak in complete sentence Auscultation: + diminished lung sounds and + rhonchi; no wheezes Cardiovascular: Rate/Rhythm: regular rate, regular rhythm and + tachycardic Gastrointestinal (Abdomen): Inspection/Auscultation: abdomen not distended Percussion/Palpation: abdomen soft; abdomen nontender Musculoskeletal: Head/Neck/Chest: normocephalic and head atraumatic Skin: no rashes, warm and dry Neurologic: awake; not confused Speech / Cognition: normal speech Psychiatric: A+Ox3, euthymic affect
--- NOTE | 2018-05-08 19:26 | Pulmonology Progress Note ---
Date of Service May 08, 2018 Assessment & Plan (1) Chronic steroid use: Impression: 1. Mixed obstructive and restrictive lung disease, hyperinflation of the lung is likely related to chronic aspiration. 2. 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 3. 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 4. Chronic hypercapnic respiratory failure. Tolerated the BiPAP. Plan: 1. Change steroids to prednisone p.o. 50 mg daily for 5 days then taper by 10 mg every other day to her baseline dose. 2. Not a candidate for bronchoscopy for mucoid impaction. Conservative management with incentive spirometry. 3. Continue with bronchodilators. 4. Ambulate the patient as possible. 5. Could not tolerate BiPAP. 6. Continue oxygen at 5 L/min.. 7. Address CODE STATUS. 8. Continue with heparin subcu for DVT prophylaxis. 9. Transfer the patient to inpatient pulmonary rehab such as [facility] or [facility]. 10. Avoid strong sedatives. Thank you, will follow as needed. Subjective Continue to do the same, she denies any increased shortness of breath, she has not been out of bed anyway, no chest pain reported, continue to have wheezing and cough with difficulty raising her sputum. Physical Exam 2 Vital Signs (Past 24 Hours): Last Vital Signs Temp 36.9 C 05/08/18 19:17 Pulse 102 H 05/08/18 19:17 Resp 20 05/08/18 19:17 BP 143/78 H 05/08/18 19:17 Pulse Ox 89 L 05/08/18 19:17 Physical Exam: Vital signs remained stable, O2 saturation is 90% on 5 L, S1- S2 regular rate and rhythm, rhonchi with wheezing bilaterally, kyphosis, abdomen is benign, no edema. Cachexia. Neurologically she is nonfocal. Results & Data Laboratory Results Labs showed white count of 19,000, hematocrit and platelets are stable, bicarb of 50, BUN and creatinine is 8 and 0.4. Diagnostic Findings No new imaging.
[2018-05-08] MEDS: TRAZODONE HCL 50 MG TAB PO SCH (21:09)
[2018-05-09] MEDS: PIPERACILLIN/TAZOBACTAM 3.375 GM in DEXTROSE 5% 100 ML IV SCH ×3 (01:42→17:42)
[2018-05-09] MEDS: ACETAMINOPHEN 325 MG TAB PO PRN (01:48)
[2018-05-09] MEDS: LEVALBUTEROL HCL 1.25 MG/3 ML NEB INH SCH ×4 (02:03→19:12)
[2018-05-09] MEDS: TRAMADOL HCL 50 MG TABLET PO PRN ×3 (05:22→17:50)
[2018-05-09] MEDS: BECLOMETHASONE DIP HFA 80 MCG 8.7G INH INH SCH ×2 (07:44→20:47)
[2018-05-09] MEDS: BUDESONIDE/FORMOTEROL FUMARATE 160/4.5 60 PUFFS/INHALER INH SCH ×2 (07:44→20:47)
[2018-05-09] MEDS: SERTRALINE HCL 100 MG TABLET PO SCH (07:45)
[2018-05-09] MEDS: ENOXAPARIN INJ 40 MG/0.4 ML SYR SQ SCH (07:45)
[2018-05-09] MEDS: guaiFENesin 600 MG TABCR PO SCH ×2 (07:46→20:46)
[2018-05-09] MEDS: MAGNESIUM OXIDE 400 MG TAB PO SCH ×2 (07:46→20:47)
[2018-05-09] MEDS: TIOTROPIUM BROMIDE 5 PUFF/90 MCG INH INH SCH (07:46)
[2018-05-09] MEDS: PANTOprazole 40 MG TAB PO SCH (07:47)
[2018-05-09] MEDS: predniSONE 50 MG TAB PO SCH (07:47)
--- NOTE | 2018-05-09 15:42 | Hospitalist Progress Note ---
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 CXR on 05/02 not showing any pneumonia. Flu swab negative on 05/02. Procalcitonin on 05/03 was negative. On home O2 of 4L, but bumped up to 5L NC currently. CTA chest on 05/05 indicated a mucus plug of RML. Pulm considered bronch, but had concerns about difficult extubation. Also showed PE, but Dr. Bella felt this was an over-read, and we did not start therapeutic anticoagulation. - Continue home inhalers, nebulizers, and steroids - Continue Bactrim prophylaxis 3x/wk - Pulmonology consult - Appreciate recs - Sputum cx from 05/04 growing Pseudomonas - Started Zosyn on 05/06 - Possibly colonization as she had no fever and HR, RR, & white count could all be confounded due to exacerbation and steroids; however, given her acute decline on 05/05, I started it anyhow. - Currently with very slow improvement. - Discussed with Dr. Bella who feels she would benefit from inpatient rehab - Discuss with case management on Thursday possible pulmonary rehab locations and whether they can finish the IV abx course. Per pulmonary, she is ready for discharge. (2) Tremor: Reported chest wall tremor first several days of admission. Likely from nebulizers vs. steroids. Pulm felt it was due to muscle wasting from her respiratory failure. Had largely resolved by 05/07. - Ativan PRN (3) GERD (gastroesophageal reflux disease): No current issues. - Continue home meds (4) Anemia: Baseline hemoglobin is ~9. Elevated on admission to 10.4. - Has appt with hem/onc this Thursday, will need rescheduled (5) DVT prophylaxis: Lovenox Subjective 67yo F w/ chronic lung disease who presents with shortness of breath. Slight improvement today. Reports no fevers/chills, chest pain, abdominal pain, nausea, or vomiting. Physical Exam 2 Vital Signs (Past 24 Hours): Last Vital Signs Temp 36.8 C 05/09/18 12:04 Pulse 96 H 05/09/18 14:14 Resp 18 05/09/18 14:14 BP 145/69 H 05/09/18 12:04 Pulse Ox 98 05/09/18 14:14 Constitutional: WD/WN, vitals as above Eyes: normal visual jackson by confrontation and + anicteric sclerae Neck: normal visual inspection and trachea midline Respiratory: + labored breathing; no respiratory distress Auscultation: + diminished lung sounds and + rhonchi; no wheezes Cardiovascular: Rate/Rhythm: regular rate, regular rhythm and + tachycardic Gastrointestinal (Abdomen): Inspection/Auscultation: abdomen not distended Percussion/Palpation: abdomen soft; abdomen nontender Musculoskeletal: Head/Neck/Chest: normocephalic and head atraumatic Skin: no rashes, warm and dry Neurologic: awake; not confused Speech / Cognition: normal speech
[2018-05-09] MEDS: TRAZODONE HCL 50 MG TAB PO SCH (20:46)
[2018-05-10] MEDS: LEVALBUTEROL HCL 1.25 MG/3 ML NEB INH SCH ×4 (01:41→19:10)
[2018-05-10] MEDS: PIPERACILLIN/TAZOBACTAM 3.375 GM in DEXTROSE 5% 100 ML IV SCH ×3 (01:49→18:27)
[2018-05-10] MEDS: TRAMADOL HCL 50 MG TABLET PO PRN ×2 (06:15→19:32)
[2018-05-10 06:32] LABS: Hematocrit (blood only) 36.4 % (37-47); Hemoglobin 10.1 g/dL (12.0-16.0); Mean Corpuscular Hemoglobin 29.7 pg (25-34); Mean Corpuscular Hgb Conc 27.7 g/dL (32-36); Mean Corpuscular Volume 107.1 fL (80-100); Mean Platelet Volume 10.1 fL (7.4-10.4); Platelet Count 290 K/uL (130-400); RDW Coefficient of Variation 12.6 % (11.5-14.5); RDW Standard Deviation 49.6 fL (36.4-46.3); White Blood Count 14.71 K/uL (4.8-10.8)
[2018-05-10 07:07] LABS: BUN Creatinine Ratio 29.5 (10-20); Creatinine Clr Calc Pharmacy 137.1 ml/min; Est GFR (African American) 139.8; Est GFR (Non-African American) 120.7; Potassium 3.8 mmol/L (3.5-5.1)
[2018-05-10] MEDS: BECLOMETHASONE DIP HFA 80 MCG 8.7G INH INH SCH ×2 (07:33→20:56)
[2018-05-10] MEDS: BUDESONIDE/FORMOTEROL FUMARATE 160/4.5 60 PUFFS/INHALER INH SCH ×2 (07:33→20:56)
[2018-05-10] MEDS: MAGNESIUM OXIDE 400 MG TAB PO SCH ×2 (07:34→20:55)
[2018-05-10] MEDS: ENOXAPARIN INJ 40 MG/0.4 ML SYR SQ SCH ×2 (07:34→20:59)
[2018-05-10] MEDS: PANTOprazole 40 MG TAB PO SCH (07:34)
[2018-05-10] MEDS: SERTRALINE HCL 100 MG TABLET PO SCH (07:34)
[2018-05-10] MEDS: guaiFENesin 600 MG TABCR PO SCH ×2 (07:34→20:55)
[2018-05-10] MEDS: TIOTROPIUM BROMIDE 5 PUFF/90 MCG INH INH SCH (07:35)
[2018-05-10] MEDS: predniSONE 50 MG TAB PO SCH (07:35)
[2018-05-10 09:02] LABS: Base Excess ABG 18.6 mEq/L (-9-1.8); HCO3 ABG 49 mmol/L (19-24); Oxygen Saturation ABG 93.2 % (90-95); PCO2 ABG 98 mmHg (35-46); PO2 ABG 76 mm/Hg (80-95); pH ABG 7.31 (7.35-7.45)
[2018-05-10 09:12] LABS: Allen Test Pos (Pos)
[2018-05-10] MEDS: acetaZOLAMIDE 250 MG TAB PO SCH ×2 (09:29→20:55)
--- NOTE | 2018-05-10 10:23 | Hospitalist Progress Note ---
Date of Service May 10, 2018 Assessment & Plan (1) Eosinophilic pneumonia: (2) Tremor: (3) GERD (gastroesophageal reflux disease): (4) Anemia: 67yo F w/ chronic lung disease who presents with shortness of breath. Acute on chronic respiratory failure Combined hypoxic and hypercapnic respiratory failure , with significant CO2 retention this morning COPD exacerbation History of eosinophilic pneumonia: Follows with Dr. 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 CXR on 05/02 not showing any pneumonia. Flu swab negative on 05/02. Procalcitonin on 05/03 was negative. Currently on 5 L/min, on home O2 of 4L, CTA chest on 05/05 indicated a mucus plug of RML. Pulm considered bronch, but had concerns about difficult extubation. CTA also showed PE, Dr. Bella felt this was an over-read, and we did not start therapeutic anticoagulation, for now because patient has obvious CO2 retention, will check d-dimer, check bilateral lower extremity Doppler ultrasound, start blood thinner for now, this was discussed with Dr. whittaker, will decide continuation of anticoagulation on not will based on the above information Continue home inhalers, nebulizers, and steroids Continue Bactrim prophylaxis 3x/wk Pulmonology and employment agency manager consult - Appreciate recs This morning got a phone call from nurse reported patient has critical carbon dioxide when he was at 51 ABG ordered which shows pH 7.3, PCO2 81, Evaluation patient she is awake alert orientated, she has been refused BiPAP machine, Discussed with her about the necessary of BiPAP machine, she is willing to try Diamox ordered Jan [phone] and daughter Irene updated over the phone,, I told him patient is in critical condition Tremor: Reported chest wall tremor first several days of admission. Likely from nebulizers vs. steroids. Pulm felt it was due to muscle wasting from her respiratory failure. Had largely resolved by 05/07. Ativan PRN GERD, No current issues. Continue home meds Anemia: Stable DVT prophylaxis: Lovenox Discussed with patient and , CODE STATUS changed to DNR, (5) DVT prophylaxis: Subjective Significant anxious, however awake alert orientated, conversational, mild labored breathing when talking, Cough and difficult to cough up, occasional wheezing, Review of Systems Constitutional: Positive weakness, or fatigue Respiratory: See above Cardiac: No chest pain, No orthopnea, Abdomen: No pain, No nausea, No vomiting, No diarrhea, No constipation, No GI bleeding Musculoskeletal: No joint pain, No muscle pain, No swelling, No calf pain, No problem reported : No dysuria, No urinary frequency, No incontinence, No hematuria Neurologic: No paralysis, No weakness, No numbness/tingling, No vertigo, No balance problems Psychiatric: No depression symptoms, No anhedonism, No anxiety, No insomnia, No substance abuse Heme: No abnormal bleeding/bruising, No clotting problems, No swollen lymph nodes, No night sweats Skin: No rash, No itch, No new/changing skin lesions, No color change, No bleeding Physical Exam 2 Vital Signs (Past 24 Hours): Last Vital Signs Temp 36.8 C 05/10/18 07:57 Pulse 102 H 05/10/18 08:52 Resp 18 05/10/18 07:57 BP 124/78 05/10/18 07:57 Pulse Ox 95 05/10/18 07:57 Physical Exam: General Appearance: Anxious, frail, thin, chronically ill looking, on nasal cannula oxygen , WD/WN, Eyes: normal inspection, PERRL, EOMI, sclerae normal ENT: normal ENT inspection, hearing grossly normal, pharynx normal Neck: supple, no adenopathy, thyroid normal, no JVD, no carotid bruits, trachea midline Respiratory/Chest: chest non-tender, mild labored breathing, significantly decreased breath sounds, occasional rales/wheezing Cardiovascular: regular rate, rhythm, no JVD, no murmur Abdomen: normal bowel sounds, non tender, soft, no organomegaly, Extremities: normal range of motion, non-tender, normal inspection, no pedal edema, no calf tenderness, normal capillary refill , pelvis stable, joint has no limited range of motion, Neurologic/Psychiatric: preparer II-XII nml as tested, no motor/sensory deficits, alert, normal mood/affect, oriented x 3 Skin: normal color, warm/dry, no rash Lymphatic: no adenopathy Results & Data Laboratory Results Laboratory Results - last 24 hr 05/10/18 05/10/18 05/10/18 06:17 06:17 08:48 WBC 14.71 H RBC 3.40 L Hgb 10.1 L Hct 36.4 L MCV 107.1 H MCH 29.7 MCHC 27.7 L RDW Std Deviation 49.6 H RDW Coeff of Juan 12.6 Plt Count 290 MPV 10.1 D-Dimer ABG pH 7.31 L ABG pCO2 98 H ABG pO2 76 L ABG HCO3 49 H ABG O2 Saturation 93.2 ABG Base Excess 18.6 H Jan Test Pos Barometric Pressure 738.0 Oxygen Given 5 L Sodium 138 Potassium 3.8 Chloride 89 L Carbon Dioxide 51 H* Anion Gap -2.0 L BUN 8 Creatinine 0.29 L Est Cr Clr Drug Dosing 137.1 Est GFR ( Amer) 139.8 Est GFR (Non-Af Amer) 120.7 BUN/Creatinine Ratio 29.5 H Glucose 101 H Calcium 9.0 05/10/18 12:26 WBC RBC Hgb Hct MCV MCH MCHC RDW Std Deviation RDW Coeff of Juan Plt Count MPV D-Dimer 700 H* ABG pH ABG pCO2 ABG pO2 ABG HCO3 ABG O2 Saturation ABG Base Excess Jan Test Barometric Pressure Oxygen Given Sodium Potassium Chloride Carbon Dioxide Anion Gap BUN Creatinine Est Cr Clr Drug Dosing Est GFR ( Amer) Est GFR (Non-Af Amer) BUN/Creatinine Ratio Glucose Calcium Microbiology 05/04/18 07:25 Blood Blood Culture - Final No growth 05/04/18 07:13 Blood Blood Culture - Final No growth
--- NOTE | 2018-05-10 12:24 | Progress Note ---
DATE: 05/10/2018 TIME: 11:25 a.m. SUBJECTIVE: The patient is very anxious and short of breath. I was asked by Dr. Larose to reevaluate this patient. She previously had been seen by Dr. Bella, and he had signed off as of 05/08/2018. This morning, the patient had an arterial blood gas done. The blood gas was worse than prior. Today, the pH was 7.31 with a pCO2 of 98 and a pO2 of 76 done on 5 L of oxygen. Her prior blood gas on 05/05/2018 had shown pH 7.37 with pCO2 of 82 and pO2 of 72 on 6 L. I have reviewed the patient's records. She has a longstanding history of chronic eosinophilic pneumonia and has been on high dose prednisone for many years. She has lost approximately 30 pounds in the past 4 months for unexplained reasons. She describes having 4 falls over the past couple of months although in her eyes she denies that it was from weakness. She was seen in the outpatient by Nita Branch PA-C a few days before admission. A chest x-ray showed what was thought to be infiltrates in the right mid and lower lung jackson. I have reviewed the x-rays and CAT scans. She does have evidence of a right middle lobe atelectasis, which is not brand new. It had been seen previously by reports. The patient has a history of severe kyphoscoliosis, which no doubt contributes to her problems. The patient was extremely anxious when I was first seeing her. She stated that she felt terrible today. She admits to having some shortness of breath. She has a loose cough but is not able to bring anything out. OBJECTIVE: GENERAL: The patient appeared very anxious. Temperature is 36.8. She has not had any significant fevers during this hospital stay. HEENT: Pupils were reactive. She has some facial asymmetry, which she states is due to chronic facial muscle spasm. CARDIOVASCULAR: Her cardiac rate is 102. There were at times frequent extrasystoles. Blood pressure 124/78. RESPIRATORY: The respiratory rate is 20. Oxygen saturation is 95%. Rhonchi were heard bilaterally. Rales were also heard anteriorly on the right. GASTROINTESTINAL: The abdomen is soft. She has a small scar in the lower abdominal region, this was from prior surgery. She looks like she has lost weight based upon her abdomen. She had a small amount of ecchymosis. EXTREMITIES: Showed no cyanosis, clubbing, or edema. She does have brown skin discoloration of the lower extremities below the knees. IMAGING: The patient's CT angio of the chest was interpreted as pulmonary embolism within a subsegmental branch of the right lower lobe. It did appear to be very small and relatively isolated. Apparently, a decision was made not to treat this. There were also right middle lobe atelectatic changes. There was some mucoid material in the mainstem bronchus. Her trachea has been shaped over time to be not purely a vertical trachea but has some siphoning. This may be related to her chest anatomy. LABORATORY DATA: White count today is 14.71, hemoglobin 10.1, platelets 290,000. Electrolytes today sodium 138, potassium 3.8, chloride 89, bicarbonate 51. It should be noted that her bicarbonate was 41 on admission. Sputum culture has been growing pseudomonas. IMPRESSION: 1. Respiratory failure, acute on chronic, with hypoxia and hypercarbia. 2. Right middle lobe atelectasis, not acute. 3. Chronic eosinophilic pneumonia. 4. Kyphoscoliosis. 5. Very small pulmonary embolism. COMMENTS AND RECOMMENDATIONS: The patient's status has worsened based upon the blood gas findings. I had a long conversation with the patient because she was extremely anxious and upset over what was happening. She clearly is not ready for discharge. There would be concern that she might need intubation. The patient has never had a discussion regarding code status. I explained to her the issues regarding a living will and that it would be her option whether or not to accept all modalities of treatment. We discussed the severity of her current lung issue in light of the acidosis and hypercarbia. I explained to her that if she were to be on a ventilator in light of her bad lungs, it might be difficult to wean her from the ventilator. I also discussed that there are other issues such as whether or not to have CPR and so forth. As the patient and I were speaking, her called. The patient asked me to speak to him at this time. Her will be in the hospital he said in about 45 minutes. I explained to him what was happening at present. He will be in to speak to the patient soon. The patient is agreeable to try BiPAP once again. I tried to encourage the patient to go with it. Perhaps we can try starting off at a lower pressure and see how it goes. I think we need to keep her oxygen saturations between 88% and 92% to try and stimulate ventilation somewhat. The patient did have what appears to be a very small PE on her CAT scan from several days ago. She likely should have venous Dopplers. If there was an acute DVT, I would support regular anticoagulation in that circumstance. Considerations certainly could be given to a palliative care consult, particularly with the patient having some trouble coming to stopboard assembler with her situation acutely. It is noted that the patient is getting a full dose Lovenox at present. I did spend approximately 45 minutes with the patient including the conversation with she and her , which for her was on the telephone. Condition is very guarded.
[2018-05-10] MEDS: SULFAMETHOXAZOLE/TRIMETHOPRIM DS 800/160MG TAB PO SCH (13:49)
--- NOTE | 2018-05-10 16:03 | Palliative Care Consultation ---
Date of Consultation May 10, 2018 Assessment & Plan (1) Goals of care, counseling/discussion: -67 year old female with PMH interstitial lung disease on chronic steroid use (follows with Dr. Harris many years), kyphosis, GERD, spinal stenosis, and others, presented to hospital eight days ago with SOB. CXR on 05/02 not showing any pneumonia. 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 Flu swab negative on . Procalcitonin on 05/03 was negative. On home O2 of 4L, but bumped up to 5L NC currently. CTA chest on 05/05 indicated a mucus plug of RML. Pulm considered bronch, but had concerns about difficult extubation. Also showed PE, but Dr. Bella felt this was an over-read, therapeutic anticoagulation not started. Sputum culture on 05/04 growing pseudomonoas, Zosyn was started on 05/06. Patient continues to have elevated CO2 level, was started on Bipap today to try an correct. Palliative care consulted to discuss goals of care. -Met with patient, her and her daughter today in room 251. Patient awake alert and oriented x4 in no distress. At baseline, patient lives at home with her . she reports a decline in her overall condition since August. Since then, her severe SOB keeps her from really leaving the house. She is able to ambulate by holding on to things in her house. She gets SOB with any activity. -Patient is well aware of her progressive and worsening lung disease. However, she does feel like she has "some fight" left in her and plans to try some rehab once she leaves. I expressed concern that it seems as though she is close to her baseline functional level and I'm not sure how much rehab potential there is. She states that she just hopes to get back to where she was prior to this illness. -patient's is supportive and agrees that the goal is for rehab. I do have concerns about the intensity of [facility] rehab, which is where patient wants to go. -CODE STATUS was discussed. Patient and confirmed that patient is DNR/ DNI.. -For now, continue current medical care and see how patient does. Will continue to follow and assist with decision making. (2) Eosinophilic pneumonia: (3) Chronic steroid use: History of Present Illness Attending Physician: Rick Larose MD, PhD, [facility] History of Present Illness This 67 year old female with PMH interstitial lung disease on chronic steroid use (follows with Dr. Harris many years), kyphosis, GERD, spinal stenosis, and others, presented to hospital eight days ago with SOB. CXR on 05/02 not showing any pneumonia. 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 Flu swab negative on . Procalcitonin on 05/03 was negative. On home O2 of 4L, but bumped up to 5L NC currently. CTA chest on 05/05 indicated a mucus plug of RML. Pulm considered bronch, but had concerns about difficult extubation. Also showed PE, but Dr. Bella felt this was an over-read, therapeutic anticoagulation not started. Sputum culture on 05/04 growing pseudomonoas, Zosyn was started on 05/06. Patient continues to have elevated CO2 level, was started on Bipap today to try an correct. Palliative care consulted to discuss goals of care. See A&P for details. Thank you kindly for this consult. I will follow as needed. Allergies Allergy/AdvReac Type Severity Reaction Status Date / Time No Known Allergies Allergy Verified 05/02/18 16:36 Home Medications Home Medications Medication Instructions Recorded Confirmed Type albuterol sulfate [Proventil HFA] 2 puff INHALATION Q4 PRN 03/07/18 05/02/18 History beclomethasone dipropionate [Qvar 2 puff INHALATION BID 03/07/18 05/02/18 History RediHaler] ferrous sulfate 325 mg PO BID 03/07/18 05/02/18 History ibandronate 150 mg PO MONTHLY 03/07/18 05/02/18 History pantoprazole 40 mg PO QAM 03/07/18 05/02/18 History sertraline 100 mg PO QAM 03/07/18 05/02/18 History sulfamethoxazole-trimethoprim 1 tab PO BID 03/07/18 05/02/18 History tiotropium bromide [Spiriva with 1 cap INHALATION DAILY 03/07/18 05/02/18 History HandiHaler] tramadol 50 mg PO Q4 PRN 03/07/18 05/02/18 History trazodone 50 mg PO HS 03/07/18 05/02/18 History zafirlukast 20 mg PO BID 03/07/18 05/02/18 History moxifloxacin [Avelox] 400 mg PO DAILY 04/26/18 05/02/18 History budesonide-formoterol [Symbicort] 2 puff INHALATION BID 05/02/18 05/02/18 History levalbuterol HCl 1.25 mg INHALATION Q4 PRN 05/02/18 05/02/18 History lorazepam 0.5 mg PO BID PRN 05/02/18 05/02/18 History prednisone 50 mg PO DAILY 05/02/18 05/02/18 History Patient History Medical History On home oxygen therapy 3-4L CONT. Eosinophilic pneumonia Anemia Chronic steroid use GERD (gastroesophageal reflux disease) Spinal stenosis Chronic lung disease (Chronic) Surgical History History of bronchoscopy History of tooth extraction History of colonoscopy Family History Father Heart attack Other No significant family history Social History marital status: Current Living Situation: Spouse Other Information That Helps Us Care for You: No Feels Safe at Home: Yes Smoking Status: Never smoker Second Hand Exposure: No Hx Alcohol Use: Yes Alcohol type: wine Alcohol Intake Frequency: 0-2 drinks per day Hx Substance Use: No Beliefs That Will Affect Care: None Communication Ability: Effective Review of Systems Constitutional: + weakness Ear, Nose, Mouth, Throat: + dry mouth Respiratory: + dyspnea and + dyspnea on exertion; no cough Cardiovascular: no chest pain and no edema Gastrointestinal: no abdominal pain, no nausea and no vomiting Musculoskeletal: + back pain Integumentary: no problem reported Neurologic: no confusion Psychiatric: no confusion Physical Exam 2 Vital Signs (Past 24 Hours): Last Vital Signs Temp 36.8 C 05/10/18 11:51 Pulse 103 H 05/10/18 14:52 Resp 16 05/10/18 14:52 BP 118/68 05/10/18 14:52 Pulse Ox 89 L 05/10/18 14:52 Constitutional: + ill appearing (chronically ill appearing), + thin and + frail appearing; no acute distress ENMT: Ears: no hearing impairment Neck: normal visual inspection and trachea midline Respiratory: normal respiratory effort Auscultation: + diminished lung sounds and + rhonchi Cardiovascular: Rate/Rhythm: regular rate and regular rhythm Heart Sounds: no murmur Vessels: dorsalis pedis pulses present; no JVD Extremities: no edema Gastrointestinal (Abdomen): Inspection/Auscultation: abdomen normal to inspection and normal bowel sounds; abdomen not distended Percussion/ Palpation: abdomen soft; abdomen nontender Skin: no rashes, warm and dry Neurologic: awake; not confused Psychiatric: A+Ox3, euthymic affect Time Spent Midlevel 70 minutes with >50% of time spent at bedside with patient and family discussing condition and GOC.
--- NOTE | 2018-05-10 16:23 | Ultrasound Report ---
US venous doppler LE BI HISTORY: Pain. Edema. to rule out DVT COMPARISON STUDY: None. FINDINGS: There is normal compressibility, flow, and augmentation within the bilateral lower extremit y deep venous systems. IMPRESSION: No DVT within the right or left lower extremity. The above report was generated using voice recognition software. It may contain grammatical, syntax or spelling errors. Electronically signed by: Demar Bingham M.D. 05/10/2018 4:21 PM
[2018-05-10] MEDS: LORazepam 0.5 MG TAB PO PRN (20:53)
[2018-05-10] MEDS: ACETAMINOPHEN 325 MG TAB PO PRN (20:53)
[2018-05-10] MEDS: TRAZODONE HCL 50 MG TAB PO SCH (20:54)
[2018-05-11] MEDS: LEVALBUTEROL HCL 1.25 MG/3 ML NEB INH SCH ×4 (01:43→19:55)
[2018-05-11] MEDS: PIPERACILLIN/TAZOBACTAM 3.375 GM in DEXTROSE 5% 100 ML IV SCH ×3 (03:53→17:46)
[2018-05-11] MEDS: LORazepam 0.5 MG TAB PO PRN ×2 (04:11→10:29)
[2018-05-11] MEDS: ACETAMINOPHEN 325 MG TAB PO PRN (04:11)
[2018-05-11] MEDS: guaiFENesin 600 MG TABCR PO SCH ×2 (08:43→21:20)
[2018-05-11] MEDS: PANTOprazole 40 MG TAB PO SCH (08:43)
[2018-05-11] MEDS: TIOTROPIUM BROMIDE 5 PUFF/90 MCG INH INH SCH (08:43)
[2018-05-11] MEDS: SERTRALINE HCL 100 MG TABLET PO SCH (08:43)
[2018-05-11] MEDS: MAGNESIUM OXIDE 400 MG TAB PO SCH ×2 (08:44→21:20)
[2018-05-11] MEDS: ENOXAPARIN INJ 40 MG/0.4 ML SYR SQ SCH (08:44)
[2018-05-11] MEDS: acetaZOLAMIDE 250 MG TAB PO SCH ×2 (08:44→21:20)
[2018-05-11] MEDS: predniSONE 50 MG TAB PO SCH (08:44)
[2018-05-11 08:45] LABS: Basophils # (auto) 0.01 K/uL (0-0.2); Basophils % (auto) 0.1 %; Eosinophils # (auto) 0.14 K/uL (0-0.5); Eosinophils % (auto) 1.2 %; Hematocrit (blood only) 37.4 % (37-47); Hemoglobin 10.2 g/dL (12.0-16.0); Immature Granulocytes # (auto) 0.06 K/uL (0.00-0.02); Immature Granulocytes % (auto) 0.5 %; Lymphocytes # (auto) 1.35 K/uL (1.2-3.4); Lymphocytes % (auto) 11.6 %; Mean Corpuscular Hemoglobin 29.1 pg (25-34); Mean Corpuscular Hgb Conc 27.3 g/dL (32-36); Mean Corpuscular Volume 106.9 fL (80-100); Mean Platelet Volume 10.8 fL (7.4-10.4); Monocytes # (auto) 1.56 K/uL (0.11-0.59); Monocytes % (auto) 13.4 %; Neutrophils # (auto) 8.55 K/uL (1.4-6.5); Neutrophils % (auto) 73.2 %; Platelet Count 312 K/uL (130-400); RDW Coefficient of Variation 12.6 % (11.5-14.5); RDW Standard Deviation 49.2 fL (36.4-46.3); White Blood Count 11.67 K/uL (4.8-10.8)
[2018-05-11] MEDS: BECLOMETHASONE DIP HFA 80 MCG 8.7G INH INH SCH ×2 (08:45→21:19)
[2018-05-11] MEDS: BUDESONIDE/FORMOTEROL FUMARATE 160/4.5 60 PUFFS/INHALER INH SCH ×2 (08:45→21:19)
[2018-05-11 08:51] LABS: Base Excess ABG 12.4 mEq/L (-9-1.8); HCO3 ABG 43 mmol/L (19-24); Oxygen Saturation ABG 92.5 % (90-95); PCO2 ABG 101 mmHg (35-46); PO2 ABG 76 mm/Hg (80-95); pH ABG 7.25 (7.35-7.45)
[2018-05-11 08:52] LABS: Allen Test Pos (Pos)
[2018-05-11 09:13] LABS: BUN Creatinine Ratio 21.2 (10-20); Calcium 9.1 mg/dl (8.5-10.1); Creatinine Clr Calc Pharmacy 84.6 ml/min; Est GFR (African American) 119.3; Est GFR (Non-African American) 102.9; Magnesium 1.8 mg/dl (1.8-2.4); Phosphorus 3.6 mg/dl (2.5-4.9); Potassium 3.7 mmol/L (3.5-5.1)
[2018-05-11] MEDS: TRAMADOL HCL 50 MG TABLET PO PRN (10:28)
[2018-05-11] MEDS ORDERED: SODIUM CHLORIDE 0.9% 500 ML IV SCH (10:30)
--- NOTE | 2018-05-11 10:49 | Progress Note ---
DATE: 05/11/2018 TIME: 09:35 a.m. SUBJECTIVE: The patient is very restless. She is on BiPAP. She has been very anxious. According to nursing staff, she did tolerate BiPAP throughout the night and she still has BiPAP on. The patient complains of pain all over. This was particularly bothersome in her back. She does still complain of shortness of breath. It was difficult to understand a lot of what she was saying. Her voice was weak. OBJECTIVE: GENERAL: The patient was restless and appearing uncomfortable. BiPAP was in place. VITAL SIGNS: Temperature is 36.5. She has been afebrile for the past 24 hours at least. Heart rate is 103 per minute. Occasional to frequent extrasystoles are heard. Blood pressure 131/76. LUNGS: Respiratory rate is 20. Breath sounds are diffusely diminished. Rales are heard best in the left chest. The breath sounds are overall diminished. I did not hear as much rhonchi as yesterday. Saturation was 92% on the BiPAP. ABDOMEN: Soft. Bowel sounds were present. EXTREMITIES: Showed no cyanosis, clubbing or edema. LABORATORY DATA: White count today is 11.67. Hemoglobin 10.2. Platelets 312,000. Electrolytes show sodium 137, potassium 3.7, chloride 95, bicarb 42. BUN is 10 with a creatinine of 0.47. Venous Doppler done yesterday showed no evidence of DVT. IMPRESSION: 1. Respiratory failure - acute on chronic with hypoxia and hypercarbia. 2. Right middle lobe atelectasis. 3. Very small PE. 4. Chronic eosinophilic pneumonia. 5. Kyphoscoliosis. COMMENTS: The patient seems to be doing poorly. She did have a blood gas done today that showed a pH of 7.25, pCO2 101 and pO2 76. That apparently was done with 8 liters plus the BiPAP. She is more acidotic than yesterday. Will attempt to increase her BiPAP pressures to see if this might help. We will try the pressures at 14/6 if tolerated. The patient is now a DNR. She did have an evaluation yesterday by Palliative. Her status currently is poor. May need to change her to methylprednisolone as I am doubtful she is able to have any significant intake.
[2018-05-11] MEDS ORDERED: SODIUM CHLORIDE 0.9% 1000ML 1,000 ML IV SCH (11:30)
--- NOTE | 2018-05-11 15:32 | Palliative Care Progress Note ---
Date of Service May 11, 2018 Assessment & Plan (1) Goals of care, counseling/discussion: -Patient looks a little worse today. She remains on bipap, ABGs are worse. Hospitalist managing care. PH 7.25, CO2 101 (up from 98). She is more drowsy/lethargic. -Patient states that our conversation yesterday scared her. She is not ready to "give up." -No family at bedside when I saw her this morning around 9:30. Patient requested that I come back tomorrow. -Prognosis seems poor at this point if she does not turn the corner on bipap. -Will follow and assist with decision making. (2) Eosinophilic pneumonia: (3) Chronic steroid use: Subjective Patient still having back pain, but is more drowsy/lethargic today despite being on bipap. ABGs look worse. Constitutional: + weakness Ear, Nose, Mouth, Throat: + dry mouth Respiratory: + dyspnea and + dyspnea on exertion; no cough Cardiovascular: no chest pain and no edema Gastrointestinal: no abdominal pain, no nausea and no vomiting Musculoskeletal: + back pain Psychiatric: no anxiety Physical Exam 2 Vital Signs (Past 24 Hours): Last Vital Signs Temp 36.6 C 05/11/18 14:58 Pulse 103 H 05/11/18 14:58 Resp 22 05/11/18 14:58 BP 123/71 05/11/18 14:58 Pulse Ox 90 05/11/18 13:49 Constitutional: + ill appearing (chronically ill appearing), + thin and + frail appearing; no acute distress ENMT: Ears: no hearing impairment Neck: normal visual inspection and trachea midline Respiratory: normal respiratory effort Auscultation: + diminished lung sounds and + rhonchi Cardiovascular: Rate/Rhythm: regular rate and regular rhythm Heart Sounds: no murmur Vessels: dorsalis pedis pulses present; no JVD Extremities: no edema Gastrointestinal (Abdomen): Inspection/Auscultation: abdomen normal to inspection and normal bowel sounds; abdomen not distended Percussion/ Palpation: abdomen soft; abdomen nontender Skin: no rashes, warm and dry Neurologic: awake (but more lethargic today); not confused Time Spent Midlevel 25 minutes with >50% of time spent at bedside with patient discussing condition and goals of care.
--- NOTE | 2018-05-11 17:25 | Hospitalist Progress Note ---
Date of Service May 11, 2018 Assessment & Plan (1) Eosinophilic pneumonia: (2) Tremor: (3) GERD (gastroesophageal reflux disease): (4) Anemia: 67yo F w/ chronic lung disease who presents with shortness of breath. Acute on chronic respiratory failure Combined hypoxic and hypercapnic respiratory failure , with significant CO2 retention this morning COPD exacerbation History of eosinophilic pneumonia: Follows with Dr. 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 CXR on 05/02 not showing any pneumonia. Flu swab negative on 05/02. Procalcitonin on 05/03 was negative. CTA chest on 05/05 indicated a mucus plug of RML. Pulm considered bronch, but had concerns about difficult extubation. CTA also showed PE, Dr. 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 Likely from nebulizers vs. steroids. Pulm felt it was due to muscle wasting from her respiratory failure. Had largely resolved by 05/07. Ativan PRN GERD, No current issues. Continue home meds Anemia: Stable Poor prognosis, palliative care on the case, possible home hospice care, DVT prophylaxis: Lovenox Discussed with patient and , CODE STATUS changed to DNR, (5) DVT prophylaxis: Lovenox Subjective was anxious, Sometimes feeling sad and crying, however awake alert orientated, conversational, mild labored breathing when talking, BiPAP facemask possible leakage, RT has been frequent checking and adjusting Still reports shortness of breath, occasional cough, eating Poorly Review of Systems Constitutional: Positive weakness, or fatigue Respiratory: See above Cardiac: No chest pain, No orthopnea, Abdomen: No pain, No nausea, No vomiting, No diarrhea, No constipation, No GI bleeding Musculoskeletal: Lower back pain and muscle pain, No swelling, No calf pain, No problem reported : No dysuria, No urinary frequency, No incontinence, No hematuria Neurologic: No paralysis, No weakness, No numbness/tingling, No vertigo, No balance problems Psychiatric: No depression symptoms, No anhedonism, No anxiety, No insomnia, No substance abuse Heme: No abnormal bleeding/bruising, No clotting problems, No swollen lymph nodes, No night sweats Skin: No rash, No itch, No new/changing skin lesions, No color change, No bleeding Physical Exam 2 Vital Signs (Past 24 Hours): Last Vital Signs Temp 36.6 C 05/11/18 14:58 Pulse 101 H 05/11/18 16:32 Resp 22 05/11/18 14:58 BP 123/71 05/11/18 14:58 Pulse Ox 90 05/11/18 13:49 Physical Exam: General Appearance: on bipap, Anxious, frail, thin, chronically ill looking, Eyes: normal inspection, PERRL, EOMI, sclerae normal ENT: normal ENT inspection, hearing grossly normal, pharynx normal Neck: supple, no adenopathy, thyroid normal, no JVD, no carotid bruits, trachea midline Respiratory/Chest: chest non-tender, mild labored breathing, significantly decreased breath sounds, occasional rales/wheezing Cardiovascular: regular rate, rhythm, no JVD, no murmur Abdomen: normal bowel sounds, non tender, soft, no organomegaly, Extremities: normal range of motion, non-tender, normal inspection, no pedal edema, no calf tenderness, normal capillary refill , pelvis stable, joint has no limited range of motion, 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, no motor/sensory deficits, alert, normal mood/affect, oriented x 3 Skin: normal color, warm/dry, no rash Lymphatic: no adenopathy Results & Data Laboratory Results Laboratory Results - last 24 hr 05/11/18 05/11/18 05/11/18 08:20 08:20 08:20 WBC 11.67 H RBC 3.50 L Hgb 10.2 L Hct 37.4 MCV 106.9 H MCH 29.1 MCHC 27.3 L RDW Std Deviation 49.2 H RDW Coeff of Juan 12.6 Plt Count 312 MPV 10.8 H Immature Gran % (Auto) 0.5 Neut % (Auto) 73.2 Lymph % (Auto) 11.6 Mcmullen % (Auto) 13.4 Eos % (Auto) 1.2 Baso % (Auto) 0.1 Immature Gran # (Auto) 0.06 H Neut # (Auto) 8.55 H Lymph # (Auto) 1.35 Mcmullen # (Auto) 1.56 H Eos # (Auto) 0.14 Baso # (Auto) 0.01 ABG pH ABG pCO2 ABG pO2 ABG HCO3 ABG O2 Saturation ABG Base Excess Jan Test Barometric Pressure Oxygen Given Sodium Cancelled 137 Potassium Cancelled 3.7 Chloride Cancelled 95 L Carbon Dioxide Cancelled 42 H* Anion Gap Cancelled -1.0 L BUN Cancelled 10 Creatinine Cancelled 0.47 L Est Cr Clr Drug Dosing Cancelled 84.6 Est GFR ( Amer) Cancelled 119.3 Est GFR (Non-Af Amer) Cancelled 102.9 BUN/Creatinine Ratio Cancelled 21.2 H Glucose Cancelled 103 H Calcium Cancelled 9.1 Phosphorus Cancelled 3.6 Magnesium Cancelled 1.8 05/11/18 08:40 WBC RBC Hgb Hct MCV MCH MCHC RDW Std Deviation RDW Coeff of Juan Plt Count MPV Immature Gran % (Auto) Neut % (Auto) Lymph % (Auto) Mcmullen % (Auto) Eos % (Auto) Baso % (Auto) Immature Gran # (Auto) Neut # (Auto) Lymph # (Auto) Mcmullen # (Auto) Eos # (Auto) Baso # (Auto) ABG pH 7.25 L ABG pCO2 101 H ABG pO2 76 L ABG HCO3 43 H ABG O2 Saturation 92.5 ABG Base Excess 12.4 H Jan Test Pos Barometric Pressure 736.0 Oxygen Given 8L Sodium Potassium Chloride Carbon Dioxide Anion Gap BUN Creatinine Est Cr Clr Drug Dosing Est GFR ( Amer) Est GFR (Non-Af Amer) BUN/Creatinine Ratio Glucose Calcium Phosphorus Magnesium
[2018-05-11 18:36] LABS: Base Excess ABG 9.1 mEq/L (-9-1.8); HCO3 ABG 39 mmol/L (19-24); PCO2 ABG 87 mmHg (35-46); PO2 ABG 68 mm/Hg (80-95); pH ABG 7.27 (7.35-7.45)
[2018-05-11 18:39] LABS: Allen Test Pos (Pos)
[2018-05-11] MEDS ORDERED: D5W AND 1/2NSS 1,000 ML IV SCH (19:00)
[2018-05-11 19:20] LABS: BUN Creatinine Ratio 31.3 (10-20); Blood Urea Nitrogen 14 mg/dl (7-18); Calcium 9.1 mg/dl (8.5-10.1); Carbon Dioxide 32 mmol/L (21-32); Chloride 97 mmol/L (98-107); Creatinine Clr Calc Pharmacy 90.3 ml/min; Est GFR (African American) 121.9; Est GFR (Non-African American) 105.2; Glucose 185 mg/dl (70-99); Magnesium < 0.3 mg/dl (1.8-2.4); Potassium 4.4 mmol/L (3.5-5.1); Sodium 134 mmol/L (136-145)
[2018-05-11] MEDS: MoRPHine SULFATE 2 MG/ML CARP IV PRN ×2 (19:31→23:37)
[2018-05-11] MEDS: MAGNESIUM SULFATE / D5W 1 GM/100 ML BAG IV SCH ×2 (21:15→22:25)
[2018-05-11] MEDS: methylPREDNISolone 60 MG in SYRINGE 0 ML IV SCH (21:15)
[2018-05-11] MEDS: TRAZODONE HCL 50 MG TAB PO SCH (21:20)
[2018-05-12] MEDS: PIPERACILLIN/TAZOBACTAM 3.375 GM in DEXTROSE 5% 100 ML IV SCH ×2 (01:42→12:45)
[2018-05-12] MEDS: LEVALBUTEROL HCL 1.25 MG/3 ML NEB INH SCH ×3 (02:03→18:10)
[2018-05-12] MEDS ORDERED: LORazepam 0.5 MG/1 ML VIAL IV STA (02:42)
[2018-05-12] MEDS: MoRPHine SULFATE 2 MG/ML CARP IV PRN ×3 (03:48→13:47)
[2018-05-12] MEDS: methylPREDNISolone 60 MG in SYRINGE 0 ML IV SCH ×3 (06:44→21:03)
[2018-05-12 07:19] LABS: Hematocrit (blood only) 34.8 % (37-47); Hemoglobin 9.7 g/dL (12.0-16.0); Mean Corpuscular Hemoglobin 29.1 pg (25-34); Mean Corpuscular Hgb Conc 27.9 g/dL (32-36); Mean Corpuscular Volume 104.5 fL (80-100); Mean Platelet Volume 10.3 fL (7.4-10.4); Platelet Count 294 K/uL (130-400); RDW Coefficient of Variation 12.2 % (11.5-14.5); RDW Standard Deviation 46.8 fL (36.4-46.3); Red Blood Count 3.33 M/uL (4.2-5.4); White Blood Count 14.02 K/uL (4.8-10.8)
[2018-05-12 07:20] LABS: Immature Granulocytes # (auto) 0.05 K/uL (0.00-0.02); Immature Granulocytes % (auto) 0.4 %; Lymphocytes # (auto) 0.65 K/uL (1.2-3.4); Lymphocytes % (auto) 4.6 %; Monocytes # (auto) 1.03 K/uL (0.11-0.59); Monocytes % (auto) 7.3 %; Neutrophils # (auto) 12.29 K/uL (1.4-6.5); Neutrophils % (auto) 87.7 %
--- NOTE | 2018-05-12 07:30 | XRay Report ---
XR chest 1V portable CLINICAL HISTORY: respiratory failure dyspnea COMPARISON STUDY: 05/02/2018 FINDINGS: Bilateral old rib fractures are again noted. Slight increase in parenchymal density of the lung bases and to a lesser extent right apex. Possibility of small developing parenchymal infiltrates must be considered. IMPRESSION: Small scattered developing parenchymal infiltrates. Chronic additional changes as noted. The above report was generated using voice recognition software. It may contain grammatical, syntax or spelling errors. Electronically signed by: eDmar Bingham M.D. 05/12/2018 7:28 AM
[2018-05-12 07:40] LABS: Calcium 8.3 mg/dl (8.5-10.1); Creatinine Clr Calc Pharmacy 116.9 ml/min; Est GFR (African American) 132.7; Est GFR (Non-African American) 114.5; Magnesium 2.1 mg/dl (1.8-2.4); Potassium 3.9 mmol/L (3.5-5.1)
[2018-05-12 07:44] LABS: Phosphorus 2.9 mg/dl (2.5-4.9)
[2018-05-12] MEDS: BUDESONIDE/FORMOTEROL FUMARATE 160/4.5 60 PUFFS/INHALER INH SCH ×2 (08:41→20:55)
[2018-05-12] MEDS: BECLOMETHASONE DIP HFA 80 MCG 8.7G INH INH SCH ×2 (08:42→20:55)
[2018-05-12] MEDS: MAGNESIUM OXIDE 400 MG TAB PO SCH (08:43)
[2018-05-12] MEDS: TIOTROPIUM BROMIDE 5 PUFF/90 MCG INH INH SCH (08:44)
[2018-05-12] MEDS: SERTRALINE HCL 100 MG TABLET PO SCH (08:44)
[2018-05-12] MEDS: guaiFENesin 600 MG TABCR PO SCH (08:44)
[2018-05-12 08:53] LABS: Base Excess ABG 12.3 mEq/L (-9-1.8); HCO3 ABG 42 mmol/L (19-24); Oxygen Saturation ABG 92.5 % (90-95); PCO2 ABG 92 mmHg (35-46); PO2 ABG 77 mm/Hg (80-95); pH ABG 7.28 (7.35-7.45)
[2018-05-12 08:57] LABS: Allen Test Pos (Pos)
[2018-05-12] MEDS ORDERED: ENOXAPARIN INJ 40 MG/0.4 ML SYR SQ SCH (09:00)
--- NOTE | 2018-05-12 10:24 | Palliative Care Progress Note ---
Date of Service May 12, 2018 Assessment & Plan (1) Goals of care, counseling/discussion: -Patient remains on bipap this morning. ABGs look worse than last evening at 6:30pm. PH is stable at 7.27, CO2 increased from 87 to 92, PO2 still low at 77. Spoke with Dr. Larose, bipap is not effective. Patient is uncomfortable and asking for bipap to be removed. She has been confused overnight. -Patient's Jan and daughter Irene at bedside. Discussed transitioning to comfort measures only: removing bipap and applying nasal cannula, stopping labs and unnecessary medications, allowing her to eat and drink, cancelling speech consult. Family is in agreement that they would like her to be comfortable. -Given patient's tenuous respiratory status, will see how she does without the bipap today. If she stabilizes and is able to survive a transfer, family is interested in taking her home with hospice. clinical operations manager updated. -Increased morphine to 2mg IV Q2h PRN pain or SOB/air hunger. (2) Eosinophilic pneumonia: (3) Chronic steroid use: Subjective Patient not improving. Family at bedside today: and daughter. Dr. Larose and I discussed goals of care with family. Plan is to transitiong to [employer]. Ear, Nose, Mouth, Throat: + dry mouth Respiratory: + dyspnea on exertion; no cough and no dyspnea Cardiovascular: no chest pain and no edema Gastrointestinal: no abdominal pain, no nausea and no vomiting Musculoskeletal: + back pain Psychiatric: no anxiety Physical Exam 2 Vital Signs (Past 24 Hours): Last Vital Signs Temp 36.8 C 05/12/18 07:19 Pulse 98 H 05/12/18 07:24 Resp 20 05/12/18 07:20 BP 117/72 05/12/18 07:19 Pulse Ox 96 05/12/18 07:20 Constitutional: + ill appearing (chronically ill appearing), + thin and + frail appearing; no acute distress ENMT: Ears: no hearing impairment Neck: normal visual inspection and trachea midline Respiratory: normal respiratory effort Auscultation: + diminished lung sounds and + rhonchi Cardiovascular: Rate/Rhythm: regular rate and regular rhythm Heart Sounds: no murmur Vessels: dorsalis pedis pulses present; no JVD Extremities: no edema Gastrointestinal (Abdomen): Inspection/Auscultation: abdomen normal to inspection and normal bowel sounds; abdomen not distended Percussion/ Palpation: abdomen soft; abdomen nontender Skin: no rashes, warm and dry Psychiatric: Orientation: alert, oriented to person and oriented to place; + not oriented to time Time Spent Midlevel 65 minutes with >50% of time spent at bedside with patient and family discussing condition and goals of care as well as EOL issues.
[2018-05-12] MEDS: PANTOprazole 40 MG TAB PO SCH (13:15)
[2018-05-12] MEDS: SULFAMETHOXAZOLE/TRIMETHOPRIM DS 800/160MG TAB PO SCH (14:20)
--- NOTE | 2018-05-12 15:58 | Hospitalist Progress Note ---
Date of Service May 12, 2018 Assessment & Plan (1) Eosinophilic pneumonia: (2) Tremor: (3) GERD (gastroesophageal reflux disease): (4) Anemia: 67yo F w/ chronic lung disease who presents with shortness of breath, acute on chronic respiratory failure Acute on chronic respiratory failure Combined hypoxic and hypercapnic respiratory failure , with significant CO2 retention, comes and goes COPD exacerbation History of eosinophilic pneumonia: Follows with Dr. 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 CTA chest on 05/05 indicated a mucus plug of RML. Pulm considered bronch, but had concerns about difficult extubation. CTA also showed PE, Dr. Bella felt this was an over-read, did not start therapeutic anticoagulation, Patient was transiently on therapeutic Lovenox for 2 days which was discontinued checked d-dimer, She was minimal elevated also checked bilateral lower extremity Doppler ultrasound, There is no DVT, Has been on oxygen support, nebulizers, and started Solu-Medrol, was on BiPAP machine, was on Diamox Talk to and daughter in bedside with present of palliative care, because of the above medical conditions include COPD, COPD exacerbation, CO2 retention, hypoxic and PE, and patient general condition is significant weak/ frail, possible very poor prognosis, also because patient really don't like on BiPAP, she was crying and suffering, and wanted to choose comfort measures, and daughter want to have her on comfort measures as well, do not want her to be suffering, therefore will stop all other aggressive care such as blood drawing, aggressive medical treatment and change to comfort measures only Have told the patient and daughter that if comfort measures only patient may diet very soon , and they understand Poor prognosis, palliative care on the case, possible home hospice care, DVT prophylaxis: Lovenox dc'ed because patient changed to comfort measures DNR, comfort methods (5) DVT prophylaxis: Lovenox Subjective was anxious, crying and sad, do not want to be on BiPAP machine, whole body ache , After discussed with patient and family, has started comfort measures only, Review of Systems Constitutional: Positive weakness, or fatigue Respiratory: Shortness of breath and cough, Cardiac: No chest pain, No orthopnea, Abdomen: No pain, No nausea, No vomiting, No diarrhea, No constipation, Musculoskeletal: Lower back pain and muscle pain, No swelling, No calf pain : No dysuria, No urinary frequency, No incontinence, No hematuria Neurologic: No paralysis, No numbness/tingling, Psychiatric: Positive anxiety, NSAID, no suicidal homicidal Heme: No abnormal bleeding/bruising, No clotting problems, Skin: No rash, No itch, No new/changing skin lesions, No color change, No bleeding Physical Exam 2 Vital Signs (Past 24 Hours): Last Vital Signs Temp 36.8 C 05/12/18 07:19 Pulse 98 H 05/12/18 07:24 Resp 20 05/12/18 07:20 BP 117/72 05/12/18 07:19 Pulse Ox 96 05/12/18 07:20 Physical Exam: General Appearance: Anxious, frail, thin, chronically ill looking, Eyes: normal inspection, PERRL, EOMI, sclerae normal ENT: normal ENT inspection, hearing grossly normal, pharynx normal Neck: supple, no adenopathy, thyroid normal, no JVD, no carotid bruits, trachea midline Respiratory/Chest: chest non-tender, mild labored breathing, significantly decreased breath sounds, occasional rales/wheezing Cardiovascular: regular rate, rhythm, no JVD, no murmur Abdomen: normal bowel sounds, non tender, soft, no organomegaly, Extremities: normal range of motion, non-tender, normal inspection, no pedal edema, no calf tenderness, normal capillary refill , pelvis stable, joint has no limited range of motion, Neurologic/Psychiatric: paperhanger and painter II-XII nml as tested, no motor/sensory deficits, alert, normal mood/affect, oriented x 3 Skin: normal color, warm/dry, no rash Lymphatic: no adenopathy Results & Data Laboratory Results Laboratory Results - last 24 hr 05/11/18 05/11/18 05/11/18 18:23 18:23 20:03 WBC RBC Hgb Hct MCV MCH MCHC RDW Std Deviation RDW Coeff of Juan Plt Count MPV Immature Gran % (Auto) Neut % (Auto) Lymph % (Auto) Leslie % (Auto) Eos % (Auto) Baso % (Auto) Immature Gran # (Auto) Neut # (Auto) Lymph # (Auto) Leslie # (Auto) Eos # (Auto) Baso # (Auto) ABG pH 7.27 L ABG pCO2 87 H ABG pO2 68 L ABG HCO3 39 H ABG O2 Saturation 92.0 ABG Base Excess 9.1 H Jan Test Pos Barometric Pressure 734.6 Oxygen Given 5 LITERS Sodium 134 L Potassium 4.4 D Chloride 97 L Carbon Dioxide 32 Anion Gap 5.0 BUN 14 Creatinine 0.44 L Est Cr Clr Drug Dosing 90.3 Est GFR ( Amer) 121.9 Est GFR (Non-Af Amer) 105.2 BUN/Creatinine Ratio 31.3 H Glucose 185 H Calcium 9.1 Phosphorus 4.0 Magnesium < 0.3 L* 1.7 L Folate 05/12/18 05/12/18 05/12/18 06:46 06:46 07:37 WBC 14.02 H RBC 3.33 L Hgb 9.7 L Hct 34.8 L MCV 104.5 H MCH 29.1 MCHC 27.9 L RDW Std Deviation 46.8 H RDW Coeff of Juan 12.2 Plt Count 294 MPV 10.3 Immature Gran % (Auto) 0.4 Neut % (Auto) 87.7 Lymph % (Auto) 4.6 Leslie % (Auto) 7.3 Eos % (Auto) 0.0 Baso % (Auto) 0.0 Immature Gran # (Auto) 0.05 H Neut # (Auto) 12.29 H Lymph # (Auto) 0.65 L Leslie # (Auto) 1.03 H Eos # (Auto) 0.00 Baso # (Auto) 0.00 ABG pH ABG pCO2 ABG pO2 ABG HCO3 ABG O2 Saturation ABG Base Excess Jan Test Barometric Pressure Oxygen Given Sodium 138 Potassium 3.9 Chloride 95 L Carbon Dioxide 39 H Anion Gap 4.0 BUN 11 Creatinine 0.34 L Est Cr Clr Drug Dosing 116.9 Est GFR ( Amer) 132.7 Est GFR (Non-Af Amer) 114.5 BUN/Creatinine Ratio 33.0 H Glucose 123 H Calcium 8.3 L Phosphorus 2.9 D Magnesium 2.1 Folate 13.88 05/12/18 08:25 WBC RBC Hgb Hct MCV MCH MCHC RDW Std Deviation RDW Coeff of Juan Plt Count MPV Immature Gran % (Auto) Neut % (Auto) Lymph % (Auto) Leslie % (Auto) Eos % (Auto) Baso % (Auto) Immature Gran # (Auto) Neut # (Auto) Lymph # (Auto) Leslie # (Auto) Eos # (Auto) Baso # (Auto) ABG pH 7.28 L ABG pCO2 92 H ABG pO2 77 L ABG HCO3 42 H ABG O2 Saturation 92.5 ABG Base Excess 12.3 H Jan Test Pos Barometric Pressure 732.9 Oxygen Given 10L Sodium Potassium Chloride Carbon Dioxide Anion Gap BUN Creatinine Est Cr Clr Drug Dosing Est GFR ( Amer) Est GFR (Non-Af Amer) BUN/Creatinine Ratio Glucose Calcium Phosphorus Magnesium Folate
[2018-05-12] MEDS: TRAMADOL HCL 50 MG TABLET PO PRN (17:08)
[2018-05-12] MEDS: TRAZODONE HCL 50 MG TAB PO SCH (20:56)
[2018-05-12] MEDS: ACETAMINOPHEN 325 MG TAB PO PRN (20:56)
--- NOTE | 2018-05-12 22:24 | Critical Care Consultation ---
Date of Consultation May 10, 2018 Assessment & Plan (1) Chronic steroid use: Impression: 1. Mixed obstructive and restrictive lung disease, hyperinflation of the lung is likely related to chronic aspiration. 2. 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 3. 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 4. Chronic hypercapnic respiratory failure. Tolerated the BiPAP. Plan: 1. Continue current steroids 2. Not a candidate for bronchoscopy for mucoid impaction. Conservative management with incentive spirometry. 3. Continue with bronchodilators. 4. Ambulate the patient as possible. 5. Could not tolerate BiPAP. 6. Continue oxygen at 5 L/min.. 7. Avoid strong sedatives. 8. Continue with heparin subcu for DVT prophylaxis. 9. Encourage palliative care consultation to further elucidate exact patient wishes and goals of care Thank you, will follow as needed. History of Present Illness Attending Physician: Rick Larose MD, PhD, [facility] Patient is a 67-year-old female who has end-stage COPD. I was requested to evaluate the patient for severe hypercarbic respiratory failure. During my evaluation the patient is alert and oriented her blood gas revealed a pH of 7.31 with a PCO2 of 98 O2 of 76. Patient felt mildly short of breath but this was near her baseline. When discussing treatment goals she was under the standing she was being transferred to a another institution where she could be put on a machine that would help her lungs. In reviewing the chart it appears she was going to be [facility] for [facility] rehab prior to her transfer back home. There was concern for mucoid impaction however bronchoscopy was largely contraindicated for difficulty to extubate given profound end-stage COPD. Patient stated she would want intubated if she were to undergo cardiac arrest. Allergies Allergy/AdvReac Type Severity Reaction Status Date / Time No Known Allergies Allergy Verified 05/02/18 16:36 Home Medications Home Medications Medication Instructions Recorded Confirmed Type albuterol sulfate [Proventil HFA] 2 puff INHALATION Q4 PRN 03/07/18 05/02/18 History beclomethasone dipropionate [Qvar 2 puff INHALATION BID 03/07/18 05/02/18 History RediHaler] ferrous sulfate 325 mg PO BID 03/07/18 05/02/18 History ibandronate 150 mg PO MONTHLY 03/07/18 05/02/18 History pantoprazole 40 mg PO QAM 03/07/18 05/02/18 History sertraline 100 mg PO QAM 03/07/18 05/02/18 History sulfamethoxazole-trimethoprim 1 tab PO BID 03/07/18 05/02/18 History tiotropium bromide [Spiriva with 1 cap INHALATION DAILY 03/07/18 05/02/18 History HandiHaler] tramadol 50 mg PO Q4 PRN 03/07/18 05/02/18 History trazodone 50 mg PO HS 03/07/18 05/02/18 History zafirlukast 20 mg PO BID 03/07/18 05/02/18 History moxifloxacin [Avelox] 400 mg PO DAILY 04/26/18 05/02/18 History budesonide-formoterol [Symbicort] 2 puff INHALATION BID 05/02/18 05/02/18 History levalbuterol HCl 1.25 mg INHALATION Q4 PRN 05/02/18 05/02/18 History lorazepam 0.5 mg PO BID PRN 05/02/18 05/02/18 History prednisone 50 mg PO DAILY 05/02/18 05/02/18 History Patient History Medical History On home oxygen therapy 3-4L CONT. Eosinophilic pneumonia Anemia Chronic steroid use GERD (gastroesophageal reflux disease) Spinal stenosis Chronic lung disease (Chronic) Surgical History History of bronchoscopy History of tooth extraction History of colonoscopy Family History Father Heart attack Other No significant family history Social History marital status: Current Living Situation: Spouse Other Information That Helps Us Care for You: No Feels Safe at Home: Yes Smoking Status: Never smoker Second Hand Exposure: No Hx Alcohol Use: Yes Alcohol type: wine Alcohol Intake Frequency: 0-2 drinks per day Hx Substance Use: No Beliefs That Will Affect Care: None Communication Ability: Effective Physical Exam 2 Vital Signs (Past 24 Hours): Last Vital Signs Temp 36.8 C 05/12/18 07:19 Pulse 98 H 01/16/19 07:24 Resp 20 05/12/18 07:20 BP 117/72 05/12/18 07:19 Pulse Ox 96 05/12/18 07:20 General: Alert. nontoxic. Skin: Warm, dry, Head: Atraumatic Ears, nose, mouth and throat: airway patent Cardiovascular: Normal peripheral perfusion Respiratory: no respiratory distress, increased I to E ratio mild pursed lip breathing Gastrointestinal: Non distended Musculoskeletal: No deformity
[2018-05-13] MEDS: MoRPHine SULFATE 2 MG/ML CARP IV PRN ×3 (02:16→11:29)
[2018-05-13] MEDS: LORazepam 0.5 MG TAB PO PRN (02:31)
[2018-05-13] MEDS: methylPREDNISolone 60 MG in SYRINGE 0 ML IV SCH (06:36)
[2018-05-13] MEDS: BECLOMETHASONE DIP HFA 80 MCG 8.7G INH INH SCH ×2 (08:59→20:39)
[2018-05-13] MEDS: BUDESONIDE/FORMOTEROL FUMARATE 160/4.5 60 PUFFS/INHALER INH SCH ×2 (08:59→20:39)
[2018-05-13] MEDS: TIOTROPIUM BROMIDE 5 PUFF/90 MCG INH INH SCH (08:59)
[2018-05-13] MEDS: SERTRALINE HCL 100 MG TABLET PO SCH (09:00)
[2018-05-13] MEDS: DOCUSATE SODIUM 100 MG CAP PO SCH ×2 (11:28→20:39)
--- NOTE | 2018-05-13 11:41 | Palliative Care Progress Note ---
Date of Service May 13, 2018 Assessment & Plan (1) Goals of care, counseling/discussion: -Patient is awake today. Oriented to person place and somewhat event but does have periods of confusion. We discussed the fact that she is on comfort measures and her family is considering taking her home with hospice. Patient states she is scared but her nakia in [employer] is strong, so finds some comfort in that. -Increased work of breathing and persistent pain at 8/10 today. Will order fentanyl patch at 12mcg/hr. -Start scopolamine patch 1.5mg TD Q72h for secretions. -Discontinue IV morphine and start Roxanol 5mg PO/SL Q2h PRN pain or SOB. In anticipation of possibly going home. -Patient is awake, eating and drinking. Received three doses of pain medication in 24 hours. I believe she would be stable for transfer home on hospice. -No family at bedside right now. automotive general manager is following and will speak with family about going home as well. (2) Eosinophilic pneumonia: (3) Chronic steroid use: Subjective Patient alert and awake today. periods of confusion and tearfulness. States she is afraid to , but has moravian nakia to get her through. See A&P. Constitutional: + weakness Ear, Nose, Mouth, Throat: + dry mouth; no dysphagia Respiratory: + cough, + dyspnea, + dyspnea on exertion and + sputum production Cardiovascular: no chest pain and no edema Gastrointestinal: no abdominal pain, no nausea and no vomiting Psychiatric: + anxiety; no depression Physical Exam 2 Vital Signs (Past 24 Hours): Last Vital Signs Temp 36.8 C 05/12/18 07:19 Pulse 98 H 05/12/18 07:24 Resp 20 05/12/18 07:20 BP 117/72 05/12/18 07:19 Pulse Ox 96 05/12/18 07:20 Constitutional: + ill appearing (chronically ill appearing), + thin and + frail appearing; no acute distress ENMT: Ears: no hearing impairment Neck: normal visual inspection and trachea midline Respiratory: + labored breathing and + tachypneic (mildly tachypnic) Auscultation: + diminished lung sounds and + rhonchi tracheal secretions noted Cardiovascular: Rate/Rhythm: regular rate and regular rhythm Heart Sounds: no murmur Vessels: dorsalis pedis pulses present; no JVD Extremities: no edema Gastrointestinal (Abdomen): Inspection/Auscultation: abdomen normal to inspection and normal bowel sounds; abdomen not distended Percussion/ Palpation: abdomen soft; abdomen nontender Skin: no rashes, warm and dry Neurologic: awake Psychiatric: Orientation: alert, oriented to person and oriented to place; + not oriented to time Supervising Physician Co-Signing Physician Notes Patient seen and examined, at bedside. Patient currently on O2 via nasal cannula PE: Patient with increased respiratory rate and mild work of breathing Respiratory: Diminished breath sounds bilaterally CV: Regular rate Abdomen: Not distended Extremities no edema Neuro: Awake, alert Skin: Warm to touch, no mottling Asked nursing to administer a dose of Roxanol to improve patient's comfort, will give while is present so he can see its effect in a controlled setting prior to going home with hospice. Agree with above note, assessment and plan as per RYANN Kulkarni. Patient is on comfort care, plan to go home tomorrow with hospice. Time Spent Midlevel 35 minutes with >50% of time spent at bedside with patient discussing condition and EOL issues as well as collaborating with piano case maker to coordinate care.
[2018-05-13] MEDS ORDERED: fentaNYL 12 MCG/HR TDSY TD SCH (12:00)
[2018-05-13] MEDS ORDERED: SCOPOLAMINE 1.5 MG TDSY TD SCH (12:00)
[2018-05-13] MEDS: methylPREDNISolone 40 MG in SYRINGE 0 ML IV SCH ×2 (13:45→20:48)
[2018-05-13] MEDS: MoRPHine SULFATE 5 MG/0.25 ML UDP PO PRN ×4 (15:02→23:58)
--- NOTE | 2018-05-13 15:24 | Hospitalist Progress Note ---
Date of Service May 13, 2018 Assessment & Plan (1) Eosinophilic pneumonia: (2) Tremor: (3) GERD (gastroesophageal reflux disease): (4) Anemia: 67yo F w/ chronic lung disease who presents with shortness of breath, acute on chronic respiratory failure, has been started on comfort measures only on May 12, 2018 Acute on chronic respiratory failure Combined hypoxic and hypercapnic respiratory failure , with significant CO2 retention, comes and goes COPD exacerbation History of eosinophilic pneumonia: Follows with Dr. 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 CTA chest on 05/05 indicated a mucus plug of RML. Pulm considered bronch, but had concerns about difficult extubation. CTA also showed PE, Dr. Bella felt this was an over-read, did not start therapeutic anticoagulation, Patient was transiently on therapeutic Lovenox for 2 days which was discontinued checked d-dimer, She was minimal elevated also checked bilateral lower extremity Doppler ultrasound, There was no DVT, Had been on oxygen support, nebulizers, and started Solu-Medrol, was on BiPAP machine, was on Diamox Changed to comfort measures only : "on may 12, 2018: talked to and daughter in bedside with present of palliative care, because of the above medical conditions include COPD, COPD exacerbation, CO2 retention, hypoxic and PE, and patient general condition is significant weak/frail, possible very poor prognosis, also because patient really don't like on BiPAP, she was crying and suffering, and wanted to choose comfort measures, and daughter want to have her on comfort measures as well, do not want her to be suffering, therefore will stop all other aggressive care such as blood drawing, aggressive medical treatment and change to comfort measures only" Continue comfort measures, discussed with registered nurse, nurse aide, encouraging supportive care, feeding, sipping water, medicine for anxiety and pain as needed. Have told the patient and daughter that if comfort measures only patient may diet very soon , and they understand Poor prognosis, palliative care on the case, possible home hospice care, DVT prophylaxis: Lovenox dc'ed because patient changed to comfort measures DNR, comfort methods (5) DVT prophylaxis: Lovenox Subjective Has been switched to comfort measures only, on nasal cannula oxygen, patient was eating meal, report whole body ache , which was treated by IV morphine, anxiety has been treated by Ativan, Patient generally comfortable, eating and sleeping as tolerated Has bowel movement yesterday, Review of Systems Constitutional: Positive weakness, or fatigue, labored breathing mild dry lips Respiratory: Shortness of breath and cough, Cardiac: No chest pain, No orthopnea, Abdomen: No pain, No nausea, No vomiting, No diarrhea, Musculoskeletal: Lower back pain and muscle pain, No swelling, No calf pain : No dysuria, No urinary frequency, No incontinence, No hematuria Neurologic: No paralysis, No numbness/tingling, Psychiatric: Positive anxiety, NSAID, no suicidal homicidal Heme: No abnormal bleeding/bruising, No clotting problems, Skin: No rash, No itch, No new/changing skin lesions, No color change, No bleeding Physical Exam 2 Vital Signs (Past 24 Hours): Last Vital Signs Temp 36.8 C 05/12/18 07:19 Pulse 98 H 05/12/18 07:24 Resp 20 05/12/18 07:20 BP 117/72 05/12/18 07:19 Pulse Ox 96 05/12/18 07:20
[2018-05-13] MEDS: CHECK SCOPOLAMINE PATCH PLACEMENT SCH ×2 (17:01→23:51)
[2018-05-13] MEDS: CHECK FENTANYL PATCH PLACEMENT SCH ×2 (17:01→23:51)
[2018-05-13] MEDS: TRAZODONE HCL 50 MG TAB PO SCH (20:39)
[2018-05-14] MEDS: MoRPHine SULFATE 5 MG/0.25 ML UDP PO PRN ×4 (03:25→13:19)
[2018-05-14] MEDS: LORazepam 0.5 MG TAB PO PRN (04:08)
[2018-05-14] MEDS: methylPREDNISolone 40 MG in SYRINGE 0 ML IV SCH (06:05)
[2018-05-14] MEDS: CHECK SCOPOLAMINE PATCH PLACEMENT SCH (09:00)
[2018-05-14] MEDS: CHECK FENTANYL PATCH PLACEMENT SCH (09:01)
[2018-05-14] MEDS: DOCUSATE SODIUM 100 MG CAP PO SCH (09:01)
[2018-05-14] MEDS: SERTRALINE HCL 100 MG TABLET PO SCH (09:02)
[2018-05-14] MEDS: BUDESONIDE/FORMOTEROL FUMARATE 160/4.5 60 PUFFS/INHALER INH SCH (09:04)
[2018-05-14] MEDS: TIOTROPIUM BROMIDE 5 PUFF/90 MCG INH INH SCH (09:04)
[2018-05-14] MEDS: BECLOMETHASONE DIP HFA 80 MCG 8.7G INH INH SCH (09:04)
[2018-05-14] MEDS ORDERED: MoRPHine SULFATE 10 MG/0.5 ML UDP PO PRN (10:01)
--- NOTE | 2018-05-14 10:30 | Discharge Summary ---
Date of Service May 14, 2018 Admission HPI Per Admitting Provider 67 y/o F c/o worsening SOB. Pt has hx of eosinophilic esophagitis. She is on continue home O2, 4L. She developed a cough recently and it was producing green sputum. They have avelox at home, so they started taking this. They were seen by Nita Branch and her baseline steroid dosing was increased from 30mg to 50mg. Shewas feeling a bit better on Thursday, however last night pt was having increased SOB. She turned her O2 up to 6L but today she was still having worsening SOB so she came to the ED. She has been getting increasingly SOB with eating, so her appetite and intake are low. Pt denies fever, chest pain, abd pain, n/v/c/d, LE pain or swelling. She has a daily headache when she wakes up, frontal location. This is not new. Pt given steroids, nebs, and Mg in the ED and is feeling a bit improved, but still not at her baseline. states that pt has wheezing at baseline, but "not this bad". Pt had been having home PT/OT, but over the last week had declined upon arrival due to feeling too weak and SOB to participate. Pt has lost about 30 lbs since November. She is to have a c-scope, but it has been cx in the past due to respiratory issues. Pt has been having issues with her Hb. She has been as low as in the s with this. She was to see hem/onc on Thursday. Principal Diagnosis Acute on chronic nursery failure, severe COPD exacerbation Discharge Data Allergies Allergy/AdvReac Type Severity Reaction Status Date / Time No Known Allergies Allergy Verified 05/02/18 16:36 Consultations 05/02/18 17:03 ED Decision to Admit Stat 05/02/18 19:13 Consult Case Management - Discharge Planning Stat Consult Pulmonology Routine 05/03/18 11:10 Consult Pulmonology Routine 05/08/18 09:35 Consult Palliative Care Routine 05/10/18 10:17 Consult Language Translator Stat Ordered Studies 05/04/18 13:00 FL video swallow Routine 05/05/18 11:14 CT angio chest PE protocol Stat 05/10/18 12:12 US venous doppler LE BI Stat Hospital Course (1) Eosinophilic pneumonia: (2) Tremor: (3) GERD (gastroesophageal reflux disease): (4) Anemia: 67yo F w/ chronic lung disease who presents with shortness of breath, acute on chronic respiratory failure, has been started on comfort measures only on May 12, 2018 Acute on chronic respiratory failure Combined hypoxic and hypercapnic respiratory failure , with significant CO2 retention, comes and goes COPD exacerbation History of eosinophilic pneumonia: Follows with Dr. 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 CTA chest on 05/05 indicated a mucus plug of RML. Pulm considered bronch, but had concerns about difficult extubation. CTA also showed PE, Dr. Bella felt this was an over-read, did not start therapeutic anticoagulation, Patient was transiently on therapeutic Lovenox for 2 days which was discontinued checked d-dimer, She was minimal elevated also checked bilateral lower extremity Doppler ultrasound, There was no DVT, Had been on oxygen support, nebulizers, and started Solu-Medrol, was on BiPAP machine, was on Diamox Changed to comfort measures only : "on may 12, 2018: talked to and daughter in bedside with present of palliative care, because of the above medical conditions include COPD, COPD exacerbation, CO2 retention, hypoxic and PE, and patient general condition is significant weak/frail, possible very poor prognosis, also because patient really don't like on BiPAP, she was crying and suffering, and wanted to choose comfort measures, and daughter want to have her on comfort measures as well, do not want her to be suffering, therefore will stop all other aggressive care such as blood drawing, aggressive medical treatment and change to comfort measures only" Continue comfort measures, discussed with registered nurse, nurse aide, encouraging supportive care, feeding, sipping water, medicine for anxiety and pain as needed. Have told the patient and daughter that if comfort measures only patient may very soon , and they understand Poor prognosis, palliative care on the case, today's and to home hospice care, only sent back to the hospital emergency room if the comfort evel not be able to be reached at home (5) DVT prophylaxis: Lovenox Total Time Total Time Spent Total Time Spent (In Minutes): 35 Discharge Plan Discharge Items Patient Disposition: Hospice - Home Reason For Visit: SOB Discharge Diagnosis: Acute on chronic respiratory failure, Severe COPD exacerbation Condition: Serious Discharge Goals: Decrease discomfort and Diagnostic testing Activity: As commented below Non-emergency contact: Primary Care Provider Call non-emergency contact if: you have any medication questions Follow-up/Referrals: [facility] [Provider Group] - 06/08/18 1:30 pm ( DUE TO YOUR RECENT ILLNESS, YOUR STRESS ECHO, PREVIOUSLY SCHEDULED FOR April, WAS CANCELLED AND RESCHEDULED Please, follow up at [facility] Office in [place] for a stress echo on ThursdayJune 08 at 1:45 pm (arrive 1:30 pm). *This office is located at [address] in [place]. If you have any questions or need to reschedule this appointment, call the cardiology office at [phone]. ) Aelk Harris MD [Family Provider] - 05/20/18 1:00 pm (Please, follow up at Dr. Harris's office with his veterinary assistant technician, Nita Branch PA-C, on May 20 at 1:00 pm. *If you need to change this appointment, call their office at [phone].) Marquez Keith MD [Primary Care Provider] - 05/14/18 11:40 am (Please, follow up with Dr. Hein on ThursdayMay 14 at 11: 40 am. *If you need to change this appointment, call your office at [phone].) Milton Wilkins [Physician] - (Please, follow up at [facility] with Dr. Milton Francois (retail pharmacy technician) - the nurse will call you regarding this appointment. *This office is located in the rear of the hospital. Park behind the hospital in [address] and enter via [employer] and [employer]. If you have any questions, call the office at [phone].) Diet: Regular Addtl Provider Instructions: you have Acute on chronic respiratory failure Was sent home for home hospice care, Start hospice care after arriving home Call family doctor if comfort level not able to be reached Call family doctor if any question Prescriptions: New docusate sodium 100 mg Capsule 100 mg PO BID 7 Days Qty: 14 RF: 0 scopolamine base [Transderm-Scop] 1 mg over 3 days Patch 3 Day 1.5 mg Transdermal Q72H 10 Days Qty: 3 RF: 0 morphine 10 mg/5 mL solution 5 mg PO .q2 PRN (Reason: pain, anxiety) 10 Days Qty: 100 RF: 0 Continue sertraline 100 mg tablet 100 mg PO QAM RF: 0 tramadol 50 mg tablet 50 mg PO Q4 PRN (Reason: Pain) RF: 0 trazodone 50 mg tablet 50 mg PO HS RF: 0 lorazepam 0.5 mg Tablet 0.5 mg PO BID PRN (Reason: Anxiety) RF: 0 Discontinued pantoprazole 40 mg tablet,delayed release (DR/EC) 40 mg PO QAM RF: 0 albuterol sulfate [Proventil HFA] 90 mcg/actuation HFA aerosol inhaler 2 puff Inhalation Q4 PRN (Reason: Shortness Of Breath Or Wheezing) RF: 0 ferrous sulfate 325 mg (65 mg iron) tablet,delayed release (DR/EC) 325 mg PO BID RF: 0 sulfamethoxazole-trimethoprim 800-160 mg tablet 1 tab PO BID RF: 0 tiotropium bromide [Spiriva with HandiHaler] 18 mcg capsule, w/inhalation device 1 cap Inhalation DAILY RF: 0 ibandronate 150 mg Tablet 150 mg PO MONTHLY RF: 0 beclomethasone dipropionate [Qvar RediHaler] 80 mcg/actuation Hfa Aerosol Breath Activated 2 puff INHALATION BID RF: 0 zafirlukast 20 mg tablet 20 mg PO BID RF: 0 prednisone 50 mg Tablet 50 mg PO DAILY RF: 0 levalbuterol HCl 1.25 mg/3 mL Solution For Nebulization 1.25 mg INHALATION Q4 PRN (Reason: Shortness Of Breath Or Wheezing) RF: 0 budesonide-formoterol [Symbicort] 160-4.5 mcg/actuation Hfa Aerosol Inhaler 2 puff INHALATION BID RF: 0 moxifloxacin [Avelox] 400 mg Tablet 400 mg PO DAILY RF: 0 Stand-Alone Forms: [facility] Discharge Orders: Discharge Order (Routine); Ordered 05/14/18 Ordered By: Rick Larose Admission Data Admit Date/Time: 05/02/18 17:53 Attending Provider: Rick Larose Admit Provider: Jasmyne López Primary Care Provider: Marquez Keith V. Other Providers: Mike Mirza ; Jasmyne López ; Alek Harris ; Jovani Bella ; Nisa Kahn ; Xiomy Eric ; Rebecca De Oliveira ; Pardeep Molina Service: Telemetry
--- NOTE | 2018-05-14 13:01 | Palliative Care Progress Note ---
Date of Service May 14, 2018 Assessment & Plan (1) Goals of care, counseling/discussion: -Comfort measures. -Plan is to go home with hospice today at 1:30pm. -Patient seen this morning and still appeared SOB. Increased Roxanol to 10mg PO/ SL Q2h PRN pain or SOB. -Continue fentanyl patch at 12mcg/hr. -No family at bedside this morning to complete POLST. (2) Eosinophilic pneumonia: (3) Chronic steroid use: Subjective Patient is going home with hospice today at 1:30. She was seen at about 9am. Still has some labored breathing, pain, SOB. She did not give me a number rating for her pain. Respiratory: + dyspnea; no cough Cardiovascular: no chest pain and no edema Gastrointestinal: no abdominal pain, no nausea and no vomiting Psychiatric: no anxiety (does occasionally have anxiety, none at this time) Physical Exam 2 Vital Signs (Past 24 Hours): Last Vital Signs Temp 37.1 C 05/14/18 11:01 Pulse 95 H 05/14/18 11:01 Resp 20 05/14/18 11:01 BP 117/72 05/14/18 11:01 Pulse Ox 97 05/14/18 11:01 Constitutional: + ill appearing (chronically ill appearing), + thin and + frail appearing; no acute distress ENMT: Ears: no hearing impairment Neck: normal visual inspection and trachea midline Respiratory: + labored breathing and + tachypneic (mildly tachypnic) Auscultation: + diminished lung sounds and + rhonchi Cardiovascular: Rate/Rhythm: regular rate and regular rhythm Vessels: no JVD Extremities: no edema Gastrointestinal (Abdomen): Inspection/Auscultation: abdomen normal to inspection and normal bowel sounds; abdomen not distended Percussion/ Palpation: abdomen soft; abdomen nontender Skin: no rashes, warm and dry Neurologic: awake Psychiatric: Orientation: alert, oriented to person and oriented to place; + not oriented to time Time Spent Midlevel 25 minutes with >50% of time spent at bedside with patient discussing plan of care and symptom management.
== END 2018-05-14 14:50 | disposition hospice, home (50) | DRG 189 ==
LOC: ED 15:21 → 2W 17:53 → SUATTDRO 17:53 → 2W 18:21 → 1E 05-05 12:54 → 2W 05-06 15:15